=== PATIENT | female | born 1950 | race Caucasian/White ===

== ENCOUNTER 2022-03-06 14:14 | Emergency (ER) | payer OTHER, MEDICARE ==
[~2022-03-06] VITALS: Ht 160 cm; Wt 57.0 kg
--- NOTE | 2022-03-06 14:14 | NUR ---
Koko Zuñiga's phone number [phone]
--- NOTE | 2022-03-06 14:15 | NUR ---
Pt's son: Yogesh Ayon [phone] )
--- NOTE | 2022-03-06 14:15 | NUR ---
Pt's granddaughter: Daphney Laneng [phone]
[2022-03-06] MEDS ORDERED: ASPI81TA52 PO (14:55)
[2022-03-06] MEDS ORDERED: AMLO-139 PO (14:55)
[2022-03-06] MEDS ORDERED: ATOR80TA PO (14:55)
[2022-03-06] MEDS ORDERED: OLAN5TAB3 PO (14:55)
[2022-03-06 14:58] LABS: BASOPHILS # (AUTO) 0.1 X10'3 (0-0.2); BASOPHILS % (AUTO) 0.6 % (0-1); EOSINOPHILS # (AUTO) 0.1 X10'3 (0-0.9); EOSINOPHILS % (AUTO) 0.4 % (0-6); LYMPHOCYTES % (AUTO) 12.9 % (21-51); MEAN CORPUSCULAR HEMOGLOBIN 27.7 PG (27.0-31.0); MEAN CORPUSCULAR HGB CONC 33.4 g/dL (33.0-36.5); MEAN CORPUSCULAR VOLUME 82.8 FL (78-98); MEAN PLATELET VOLUME 7.9 FL (7.4-10.4); MONOCYTES # (AUTO) 1.4 X10'3 (0-0.9); NEUTROPHILS % (AUTO) 77.1 % (42-75); PLATELET COUNT 471 X10'3 (140-440); RED BLOOD COUNT 4.71 X10'6 (4.20-5.60); RED CELL DISTRIBUTION WIDTH 14.6 % (11.5-14.5); WHITE BLOOD COUNT 15.6 X10'3 (4.5-11.0)
[2022-03-06 15:14] LABS: ALANINE AMINOTRANSFERASE 20 U/L (12-78); ALBUMIN 3.8 G/DL (3.4-5.0); ALBUMIN/GLOBULIN RATIO 0.9 (1.1-1.5); ALKALINE PHOSPHATASE 106 IU/L (46-116); ANION GAP 15 (8-16); ASPARTATE AMINO TRANSFERASE 23 U/L (10-37); BILIRUBIN,TOTAL 0.7 MG/DL (0.1-1.0); BLOOD UREA NITROGEN 20 MG/DL (7-18); BUN/CREATININE RATIO 27.8 (6.6-38.0); CALCIUM 9.2 MG/DL (8.5-10.1); CHLORIDE 103 MMOL/L (99-107); CREATININE 0.72 MG/DL (0.40-0.90); GLUCOSE 156 MG/DL (70-104); POTASSIUM 3.5 MMOL/L (3.5-5.1); SODIUM 140 MMOL/L (135-145); TOTAL CARBON DIOXIDE 22.2 MMOL/L (24-32); eGFR 79 ML/MIN
[2022-03-06 15:23] LABS: ETHANOL < 0.010 GM/DL (0.0-0.010)
[2022-03-06] MEDS ORDERED: OLANZapine **IM** 10 mg inj. IM ONE (15:25)
[2022-03-06] MEDS ORDERED: diphenhydrAMINE 50 mg/ml inj IM ONE (15:25)
[2022-03-06] MEDS ORDERED: LORazepam 2 mg/ml vial IM ONE ×2 (15:25→16:00)
--- NOTE | 2022-03-06 15:49 | NUR ---
no records avail for [facility], no records avail at all on [facility].
--- NOTE | 2022-03-06 16:08 | NUR ---
Pt has made multiple attempts to leave her room and flee the department. She is combative and confused. Rambles about being an [place].
--- NOTE | 2022-03-06 16:30 | NUR ---
Pt is resting.
--- NOTE | 2022-03-06 17:02 | NUR ---
To CT via gurney. Transported by CT staff and shipyard laborer.
[2022-03-06 18:38] LABS: URINE AMPHETAMINE SCREEN NEGATIVE (Neg); URINE BARBITUATE SCREEN NEGATIVE (Neg); URINE BENZODIAZEPINES SCREEN NEGATIVE (Neg); URINE CANNABINOID SCREEN NEGATIVE (Neg); URINE COCAINE SCREEN NEGATIVE (Neg); URINE METHADONE SCREEN NEGATIVE (Neg); URINE OPIATE SCREEN NEGATIVE (Neg); URINE PHENCYCLIDINE SCREEN NEGATIVE (Neg)
[2022-03-06 18:39] LABS: CLARITY,URINE CLEAR (Clear); COLOR,URINE YELLOW (Yellow); GLUCOSE, URINE NEGATIVE (Neg); KETONES,URINE 15 mg/dl (Neg); LEUKOCYTE ESTERASE ,URINE NEGATIVE (Neg); NITRITES, URINE NEGATIVE (Neg); OCCULT BLOOD,URINE NEGATIVE (Neg); PROTEIN,URINE TRACE mg/dl (Neg); UROBILINOGEN,URINE 0.2 E.U/dL (0.2-1.0)
[2022-03-06 18:47] LABS: UA COLLECTION TYPE STRAIGHT CATH
[2022-03-06 19:02] LABS: WBC,URINE 0-4 /HPF (0-4)
[2022-03-06 19:03] LABS: BACTERIA,URINE FEW /HPF (Neg); MUCUS STRANDS FEW /LPF (Neg); SQUAMOUS EPITHELIAL CELL,UR FEW /LPF (FEW)
--- NOTE | 2022-03-06 20:35 | NUR ---
Packet sent to [facility]
--- NOTE | 2022-03-06 21:38 | NUR ---
The patient moved to bed 20 in the ER overflow via [facility]. She appears sedated from medications given earlier.
--- NOTE | 2022-03-06 23:21 | NUR ---
The patient appears to be sleeping. respirations even and unlabored
--- NOTE | 2022-03-07 01:41 | NUR ---
The patient appears to be sleeping. Respirations even and unlabored
--- NOTE | 2022-03-07 03:35 | NUR ---
The patient appears to be sleeping. She is laying on her back. Respirations even and unlabored
--- NOTE | 2022-03-07 05:33 | NUR ---
The patient has appeared to have slept the entire night
--- NOTE | 2022-03-07 06:28 | NUR ---
Patient at nurses station and talking and attempting to give RN phone numbers when patient lived in [place] and her father was . Patient does know the correct year and month. Patient has HX of a CVA 3 weeks ago and is altered. Patient placed on a 5150 by ethics officer. Patient to be evaluated today by [facility]. No HX of psych. Continue to monitor.
[2022-03-07] MEDS ORDERED: AMLO-708 PO (06:37)
--- NOTE | 2022-03-07 08:00 | NUR ---
Patient eating breakfast. 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 Nolan slice, orange juice and mandarin oranges on patient's plate. Patient has ciliac disease. RN updated Allergy List and removed the food she could not eat. Continue to monitor.
--- NOTE | 2022-03-07 08:20 | NUR ---
RN spoke with son Yogesh. RN asked patient if [facility] had gotten the records from [place] about her stroke. RN advised son that we are aware she had a stroke. RN asked if patient had a psychiatric diagnosis. Son states the patient was diagnosed with delirium after the stroke. RN asked son if patient ever had a psychiatric diagnosis before her stroke. Son stated no. RN advised son that [facility] will evaluate patient and decide if patient meets criteria for a mental health hold and she would be contacting him for more information.
[2022-03-07] MEDS: aspirin 81mg, enteric-coated 1 TAB TABLET.DR PO SCH (08:38)
[2022-03-07] MEDS: amLODIPine 5mg tablet PO SCH (08:38)
--- NOTE | 2022-03-07 09:16 | NUR ---
GRETCHEN, Ruchi, Evaluating patient.
--- NOTE | 2022-03-07 11:04 | NUR ---
Patient finally no longer talking. Patient has been almost non stop talking for about 4.5 hours.
--- NOTE | 2022-03-07 12:36 | NUR ---
Patient only took a couple of bites of her food and wouldn't eat anymore. Patient is drinking water as RN refilled her pitcher. Continue to monitor.
--- NOTE | 2022-03-07 13:14 | NUR ---
Paptient sleeping sitting in the bed. No distress observed. Continue to monitor.
--- NOTE | 2022-03-07 15:10 | NUR ---
Tele Neuro Consult By Harsha Wong. Dr Ji evaluated patient with RN at side. Patient got upset and denied ever having a stroke. Patient attempted to hit RN with the papers she had with her. Dr Ji recommended placing patient back on the psych meds she was on. Also stated that the frustration from having aphasia could cause these behaviors. RN reported conversation to Dr Tomlinson. Dr. Tomlinson requested a psych consult. RN will call [facility] to initiate.
--- NOTE | 2022-03-07 15:20 | NUR ---
RN spoke to Peyman frog catcher of [facility]. Peyman stated he would page GRECIA Triplett for the eval.
--- NOTE | 2022-03-07 16:51 | NUR ---
RN spoke to Marilee from Aeronautical [employer] Officer for Discharge Planning for patient in bed 20. Marilee advised RN to have GRECIA Hays for a consult. Dr. Tomlinson said he came and saw patient and now wants discharge planning to see patient. RN paged discharge planning at 1635 and left Patsy, social worker clinical a message. No response and possibly gone for the day. Will advise Dr. Tomlinson.
[2022-03-07] MEDS ORDERED: OLANZapine 2.5MG tablet PO ONE (17:28)
--- NOTE | 2022-03-07 18:57 | NUR ---
The patient is resting on her bed. She has been cooperative. She is aware that she will be discharged in the am
[2022-03-07] MEDS: atorvastatin 20mg tablet PO SCH (20:05)
[2022-03-07] MEDS: OLANZAPINE 5 MG TABLET PO SCH (20:05)
--- NOTE | 2022-03-07 20:32 | NUR ---
The patient appears to be sleeping
--- NOTE | 2022-03-07 23:13 | NUR ---
The patient appears to be sleeping. Respirations are even and unlabored
--- NOTE | 2022-03-08 | NUR ---
The patient appearsa to be sleeping
--- NOTE | 2022-03-08 01:49 | NUR ---
The patient appears to be sleeping
--- NOTE | 2022-03-08 03:11 | NUR ---
The patient appears to be sleeping
--- NOTE | 2022-03-08 05:33 | NUR ---
THe patient appeared to have slept well during the night
--- NOTE | 2022-03-08 07:00 | NUR ---
Received Pt in bed resting w/o distress. Pt came to nurses station and spoke with this nurse and other staff in an entitled demeaning manner. Pt intrusive in conversations others are having. Pt irritable yet responds to limits.
[2022-03-08] MEDS: aspirin 81mg, enteric-coated 1 TAB TABLET.DR PO SCH (08:05)
[2022-03-08] MEDS: amLODIPine 5mg tablet PO SCH (08:07)
--- NOTE | 2022-03-08 09:15 | NUR ---
Pt took AM meds w/o issue and ate breakfast well. Pt demanding at times about having staff contact people for her.
--- NOTE | 2022-03-08 11:00 | NUR ---
Conversation had with Pt's son via phone. Son does not feel safe bringing her home and stated he will not be picking her up.Info relayed to Marilee FARMER, who stated she will be working with Son on DC plan.
--- NOTE | 2022-03-08 13:00 | NUR ---
Pt ate lunch well and did word puzzles in bed. Pt remains intrusive verbally.
--- NOTE | 2022-03-08 14:00 | NUR ---
Plan via Patsy FARMER, has been arranged that son will take Pt back to his home with 30 day supply of current meds and Appt at [facility].
--- NOTE | 2022-03-08 18:30 | NUR ---
Pt pink, alert, talking with sitter. Pt ambulating around room s complication. Will continue to monitor pt. for acute changes/and needs.
--- NOTE | 2022-03-08 19:07 | NUR ---
Pt pink, alert, no acute/resp distress. Will continue to monitor pt for acute changes and further needs.
[2022-03-08] MEDS: OLANZAPINE 5 MG TABLET PO SCH (20:41)
[2022-03-08] MEDS: atorvastatin 20mg tablet PO SCH (20:42)
--- NOTE | 2022-03-08 20:43 | NUR ---
Pt refuses meds. States she is in a cardiology study at [facility]. Pt pink, alert, no acute/resp distress. Sitter sitting outside door. Pt wants glass door closed. Pt speech is manic like, pressured speech.
--- NOTE | 2022-03-08 21:28 | NUR ---
Pt pink, alert, supine on bed. Pt pink, alert, no acute/resp distress. Sitter at bedside.
--- NOTE | 2022-03-08 23:09 | NUR ---
Pt supine in bed, pink, alert, no acute/resp distress. Sitter at bedside. Bed in lowest position, wheels locked. Will continue to monitor for acute changes and needs.
[2022-03-09] MEDS ORDERED: quetiapine 100mg tablet PO ONE (00:30)
--- NOTE | 2022-03-09 00:41 | NUR ---
Pt still refuses all po medications. ERP aware.
[2022-03-09] MEDS ORDERED: LORazepam 2 mg/ml vial IM ONE (00:50)
[2022-03-09] MEDS ORDERED: OLANZapine **IM** 10 mg inj. IM ONE (00:50)
--- NOTE | 2022-03-09 01:10 | NUR ---
Pt medicated as ordered with IM meds right ventrogluteal site. No s/s hematoma, adverse reaction. Security at bedside to assist with stabilization of pt for IM injection. Pt shirin. well. Pt mostly cooperative.
--- NOTE | 2022-03-09 02:26 | NUR ---
PT sleeping supine, pink, no acute/resp distress. Will continue to monitor pt for acute changes and further needs. Pt laying supine, changes position as needed.
--- NOTE | 2022-03-09 03:49 | NUR ---
Pt pink, sleeping, supine in bed. Wheels locked, bed in lowest position. Will continue to monitor for acute changes and further needs.
--- NOTE | 2022-03-09 04:50 | NUR ---
PT sleeping supine, pink, no acute/resp distress. Will continue to monitor pt for acute changes and further needs.
--- NOTE | 2022-03-09 05:31 | NUR ---
Pt pink, alert, supine in bed. Wheels locked, bed in lowest position. Will continue to monitor for acute changes and further needs.
--- NOTE | 2022-03-09 05:58 | NUR ---
handoff report to dayshift RN
--- NOTE | 2022-03-09 06:55 | NUR ---
Reprt obtained from ER nurse. Pt brought back to psych overflow, pt awake at this time, walking the unit. Pt is disoriented and not making sense but able to make her needs known.
--- NOTE | 2022-03-09 07:49 | NUR ---
Pt. in bed resting with eyes closed, noted rise and fall of chest.
[2022-03-09] MEDS: amLODIPine 5mg tablet PO SCH (08:06)
[2022-03-09] MEDS: aspirin 81mg, enteric-coated 1 TAB TABLET.DR PO SCH (08:06)
--- NOTE | 2022-03-09 08:56 | NUR ---
Pt. attempted to call son, no answer. Pt. is lying in bed on her back with eyes closed. Rise and fall of chest visible.
--- NOTE | 2022-03-09 09:00 | NUR ---
Per [facility] Crisis Evaluation notes Pt. does NOT meet 5150 requirment and her symptoms are most liekly attributed from a recent stroke.
--- NOTE | 2022-03-09 09:48 | NUR ---
Pt resting in bed with her head under the blankets, noted rise and fall of chest.
--- NOTE | 2022-03-09 10:36 | NUR ---
patient asleep at this time.
--- NOTE | 2022-03-09 11:36 | NUR ---
Pt. up walking the facility, brushing her hair.
--- NOTE | 2022-03-09 11:56 | NUR ---
Pt. talking on the phone with her son now.
--- NOTE | 2022-03-09 12:50 | NUR ---
Pt. on the phone with son for approx 25 min, conversation sounded healthy. Pt. states she is going to nap now.
--- NOTE | 2022-03-09 14:04 | NUR ---
patient asleep on right side,respirations regular.
--- NOTE | 2022-03-09 15:03 | NUR ---
Pt asleep on right side, rise and fall of chest noted.
--- NOTE | 2022-03-09 16:00 | NUR ---
Pt. awake and eating snacks in bed. No distress noted.
--- NOTE | 2022-03-09 16:56 | NUR ---
Pt. awake sitting in her bed brushing her hair, no distress noted.
--- NOTE | 2022-03-09 17:50 | NUR ---
Pt. sleeping on back, noted breath sounds. No signs of distress.
--- NOTE | 2022-03-09 18:16 | NUR ---
Report given to DESIRAE Ashby. Pt sleeping on back, breath sounds heard.
--- NOTE | 2022-03-09 19:00 | NUR ---
Pt received sleeping in bed. Pt awoke to eat her dinner.
[2022-03-09] MEDS: OLANZAPINE 5 MG TABLET PO SCH (20:01)
[2022-03-09] MEDS: atorvastatin 20mg tablet PO SCH (20:01)
--- NOTE | 2022-03-09 21:00 | NUR ---
Pt cooperative with pm assessment and took hs meds. Pt currently sleeping in no distress.
--- NOTE | 2022-03-09 23:00 | NUR ---
Pt remains asleep in no apparent distress.
--- NOTE | 2022-03-10 01:00 | NUR ---
Pt continues to sleep without distress.
--- NOTE | 2022-03-10 03:00 | NUR ---
Pt sleeping without distress.
--- NOTE | 2022-03-10 05:00 | NUR ---
Pt awoke at 0415 and has been lying silently in bed with no complaints.
--- NOTE | 2022-03-10 06:40 | NUR ---
Patient sitting up in bed with light on. No distress observed. Continue to monitor.
[2022-03-10] MEDS: aspirin 81mg, enteric-coated 1 TAB TABLET.DR PO SCH (07:59)
[2022-03-10] MEDS: amLODIPine 5mg tablet PO SCH (08:00)
--- NOTE | 2022-03-10 08:21 | NUR ---
Patient eating breakfast. No distress observed. Continue to monitor.
--- NOTE | 2022-03-10 08:50 | NUR ---
Patient chatting with [employer] about her travels. No distress observed. Continue to monitor.
--- NOTE | 2022-03-10 10:31 | NUR ---
Patient on the phone with her son. No distress observed. Continue to monitor.
--- NOTE | 2022-03-10 12:17 | NUR ---
Patient eating lunch. No distress observed. Continue to monitor.
--- NOTE | 2022-03-10 14:05 | NUR ---
Pt has been standing at her bedside fixing the blankets and refixing the blankets for the past 20 minutes. She has called her son twice in the past 2 hours. She is calm and cooperative with staff.
--- NOTE | 2022-03-10 16:06 | NUR ---
Pt spoke to her son on the phone. She is now sitting on her bed looking around. She denies complaints and appears to be comfortable. Will continue to monitor.
--- NOTE | 2022-03-10 17:41 | NUR ---
Pt sitting on her bed waiting for dinner. She denies complaints at this time.
--- NOTE | 2022-03-10 19:09 | NUR ---
The patient has been calm, pleasant and cooperative. She is fairly oriented. She was circumstantial when discussing why she was here. She stated that it was her understanding that tomorrow she would be discharged and that she is not on any kind of hold. She denies pain.
[2022-03-10] MEDS: OLANZAPINE 5 MG TABLET PO SCH (19:55)
[2022-03-10] MEDS: atorvastatin 20mg tablet PO SCH (19:56)
--- NOTE | 2022-03-10 21:05 | NUR ---
The patient appears to be sleeping
--- NOTE | 2022-03-10 23:01 | NUR ---
The patient appears to be sleeping at this time. was up once briefly to use the bathroom but is now back asleep
--- NOTE | 2022-03-11 00:01 | NUR ---
The patient up to use the bathroom
--- NOTE | 2022-03-11 01:02 | NUR ---
The patient appears to be sleeping
--- NOTE | 2022-03-11 01:58 | NUR ---
The patient appears to be sleeping
--- NOTE | 2022-03-11 03:07 | NUR ---
The patient appears to be sleeping
--- NOTE | 2022-03-11 04:09 | NUR ---
The patient appears to be sleeping
--- NOTE | 2022-03-11 05:35 | NUR ---
The patient appears to be sleeping
[2022-03-11 06:00] VITALS: BP_DIAS 84
--- NOTE | 2022-03-11 06:22 | NUR ---
Patient awake and sitting up in bed. Patient believes she is leaving today and has removed all her blankets and top sheets. Patient is calm and in no distress and asked RN for a hot tea. Continue to monitor.
--- NOTE | 2022-03-11 08:10 | NUR ---
Patient eating breakfast. No distress observed. Continue to monitor.
[2022-03-11] MEDS: aspirin 81mg, enteric-coated 1 TAB TABLET.DR PO SCH (08:42)
[2022-03-11 08:43] VITALS: BP_SYST 153
[2022-03-11] MEDS: amLODIPine 5mg tablet PO SCH (08:43)
--- NOTE | 2022-03-11 09:04 | NUR ---
Patient getting agitated, trying to leave. Adamantly states she is not on a hold thus we cannot keep her here. Security called; patient immediately went back to her bed.
[2022-03-11] MEDS ORDERED: haloperidol 1mg tablet PO SCH (09:55)
--- NOTE | 2022-03-11 10:29 | NUR ---
Patient has been talking non-stop to staff and on the phone. Dr Mendez evaluated patient and gave order for 2 mg Haldol. Continue to monitor.
--- NOTE | 2022-03-11 10:51 | NUR ---
Patient has been quiet so RN will Hold Haldal, PO until patient needs it. Continue to monitor.
--- NOTE | 2022-03-11 12:40 | NUR ---
pt sleeping quietly in her bed, eating lunch with good appetite.
--- NOTE | 2022-03-11 14:36 | NUR ---
Patient sleeping. No distress observed. Continue to monitor.
--- NOTE | 2022-03-11 16:46 | NUR ---
RN washed patient's hair with a shower cap. Patient tolerated well. Patient getting dressed because son states to roll picker patient after 5. Continue to monitor.
== END 2022-03-11 18:41 | disposition home or self-care (01) ==
LOC: ER 14:14
DX: F23 Brief psychotic disorder (principal); Z20.822 Contact with and (suspected) exposure to COVID-19; R45.1 Restlessness and agitation; Z86.73 Personal history of transient ischemic attack (TIA), and cerebral infarction without residual deficits; Z79.82 Long term (current) use of aspirin; Z79.899 Other long term (current) drug therapy
CPT/HCPCS: 36415; 70450; 71045; 80053; 80305; 80320; 81001; 84443; 84484; 85025; 87635; 93005; 96372; 99285; C9803; J1200; J2060; J3490

== ENCOUNTER 2022-03-13 22:42 | Inpatient (IN) | payer MEDICARE, OTHER ==
[~2022-03-13] VITALS: Ht 157.5 cm; Wt 56.8 kg
[~2022-03-13 22:42] MED LIST: AMLO-708 PO; ASPI81TA52 PO; ATOR80TA PO; OLAN5TAB3 PO
--- NOTE | 2022-03-13 22:42 | NUR ---
Pt presented to ED with county deputy and granddaughter. Pt is having erratic behavior and using loose associations. Reported that pt was normal earlier in the day. Pt is being very talkative and hyperactive. Some what combative, but can be redirected. Pt very repeditive. Will not take oral Ativan that was given, spit out.
[2022-03-13] MEDS ORDERED: LORazepam 1 MG tablet PO ONE (23:05)
--- NOTE | 2022-03-13 23:11 | NUR ---
PT SPIT HER ORAL ATIVAN DOSE BACK INTO THE WATER CUP AFTER PUTTING IT IN HER MOUTH, DOSE WASTED
[2022-03-13] MEDS ORDERED: LORazepam 2 mg/ml vial IM ONE (23:20)
[2022-03-13 23:25] LABS: BASOPHILS % (AUTO) 0.4 % (0-1); EOSINOPHILS # (AUTO) 0.2 X10'3 (0-0.9); EOSINOPHILS % (AUTO) 1.4 % (0-6); HEMATOCRIT 38.3 % (35.0-45.0); HEMOGLOBIN 12.3 g/dl (12.0-16.0); MEAN CORPUSCULAR HEMOGLOBIN 26.7 PG (27.0-31.0); MEAN CORPUSCULAR HGB CONC 32.2 g/dL (33.0-36.5); MEAN CORPUSCULAR VOLUME 82.8 FL (78-98); MEAN PLATELET VOLUME 7.7 FL (7.4-10.4); MONOCYTES # (AUTO) 1.3 X10'3 (0-0.9); MONOCYTES % (AUTO) 10.7 % (2-12); NEUTROPHILS # (AUTO) 7.8 X10'3 (1.8-7.7); NEUTROPHILS % (AUTO) 63.5 % (42-75); PLATELET COUNT 538 X10'3 (140-440); RED BLOOD COUNT 4.62 X10'6 (4.20-5.60); RED CELL DISTRIBUTION WIDTH 14.5 % (11.5-14.5); WHITE BLOOD COUNT 12.3 X10'3 (4.5-11.0)
[2022-03-13 23:44] LABS: ALANINE AMINOTRANSFERASE 16 U/L (12-78); ALBUMIN 3.5 G/DL (3.4-5.0); ALBUMIN/GLOBULIN RATIO 0.7 (1.1-1.5); ALKALINE PHOSPHATASE 105 IU/L (46-116); ANION GAP 14 (8-16); ASPARTATE AMINO TRANSFERASE 24 U/L (10-37); BILIRUBIN,TOTAL 0.7 MG/DL (0.1-1.0); BLOOD UREA NITROGEN 22 MG/DL (7-18); BUN/CREATININE RATIO 23.4 (6.6-38.0); CALCIUM 9.5 MG/DL (8.5-10.1); CHLORIDE 104 MMOL/L (99-107); CREATININE 0.94 MG/DL (0.40-0.90); ETHANOL < 0.010 GM/DL (0.0-0.010); GLUCOSE 138 MG/DL (70-104); SODIUM 142 MMOL/L (135-145); TOTAL CARBON DIOXIDE 24.4 MMOL/L (24-32); TOTAL PROTEIN 8.3 G/DL (6.4-8.2); eGFR 58 ML/MIN
--- NOTE | 2022-03-14 00:24 | NUR ---
Pt given Ativan IM, still uncooperative
--- NOTE | 2022-03-14 01:20 | NUR ---
EKG and U/A on hold related to agitation. Dr Schuster aware.
[2022-03-14] MEDS ORDERED: aspirin 325mg tablet PO ONE (01:50)
--- NOTE | 2022-03-14 05:21 | NUR ---
Pt in bed resting quitely. Awaiting MRI this am.
--- NOTE | 2022-03-14 08:56 | NUR ---
MRI screening form completed, info obtained from pt's emergency contact Yogesh (son) by phone.
--- NOTE | 2022-03-14 10:09 | NUR ---
Pt sleeping comfortably, no needs at this time.
--- NOTE | 2022-03-14 12:30 | NUR ---
Pt sitting in chair by door of her room. Disoriented, making incoherent conversation. Refuses to return to bed to put VS equipment back on. States she's "awake now" and doesn't want to go back to bed right now.
[2022-03-14 13:01] LABS: CLARITY,URINE CLOUDY (Clear); COLOR,URINE YELLOW (Yellow); GLUCOSE, URINE NEGATIVE (Neg); KETONES,URINE 15 mg/dl (Neg); LEUKOCYTE ESTERASE ,URINE NEGATIVE (Neg); NITRITES, URINE NEGATIVE (Neg); OCCULT BLOOD,URINE TRACE-INTACT (Neg); PROTEIN,URINE TRACE mg/dl (Neg); UROBILINOGEN,URINE 0.2 E.U/dL (0.2-1.0)
[2022-03-14 13:12] LABS: UA COLLECTION TYPE VOIDED; URINE AMPHETAMINE SCREEN NEGATIVE (Neg); URINE BARBITUATE SCREEN NEGATIVE (Neg); URINE BENZODIAZEPINES SCREEN NEGATIVE (Neg); URINE CANNABINOID SCREEN NEGATIVE (Neg); URINE COCAINE SCREEN NEGATIVE (Neg); URINE METHADONE SCREEN NEGATIVE (Neg); URINE OPIATE SCREEN NEGATIVE (Neg); URINE PHENCYCLIDINE SCREEN NEGATIVE (Neg)
[2022-03-14 13:13] LABS: MUCUS STRANDS MANY /LPF (Neg); SQUAMOUS EPITHELIAL CELL,UR MANY /LPF (FEW)
[2022-03-14 13:14] LABS: BACTERIA,URINE 1+ /HPF (Neg); RBC,URINE 0-2 /HPF (0-2)
--- NOTE | 2022-03-14 13:17 | NUR ---
Pt refusing MRI. Making bizarre comments regarding a "dog question from pet stop", and asking if staff has any respect for the "old doctors". aware.
--- NOTE | 2022-03-14 14:00 | NUR ---
Pt standing by door of room, still disoriented.
[2022-03-14] MEDS ORDERED: mag hydrox/Alum hydrox/simeth 30ml oral suspension PO PRN (14:15)
[2022-03-14] MEDS ORDERED: ondansetron/PF 4mg/2ml inj IV PRN (14:15)
[2022-03-14] MEDS ORDERED: morphine 2 MG/ML inj. syringe IV PRN ×2 (14:15)
[2022-03-14] MEDS ORDERED: magnesium hydroxide 30ml (MOM) UD suspension PO PRN (14:15)
[2022-03-14] MEDS ORDERED: acetaminophen 325mg tablet PO PRN (14:15)
[2022-03-14 15:17] LABS: HEMOGLOBIN A1C 5.9 % (4.5-6.2)
--- NOTE | 2022-03-14 16:50 | NUR ---
Pt refusing to lie still for Echo, states she can lie still "for hours" but continues to fidget and babble about unrelated topics.
--- NOTE | 2022-03-14 16:54 | NUR ---
MD notified about pt refusing exams, at bedside to assess pt.
--- NOTE | 2022-03-14 16:56 | NUR ---
Discussed pt's case and plan with Dr. New, received orders for 0.5 mg lorazepam IV q8h.
[2022-03-14] MEDS ORDERED: LORazepam 2 mg/ml vial IV PRN (17:00)
--- NOTE | 2022-03-14 18:49 | NUR ---
Pt PIV site c/d/i. Pt christopher gomez. Bed in lowest position, wheels locked, rail 2/2 up. Will continue to monitor pt for acute changes and needs. Addendum: 03/14/22 at 2333 by [email or web address] Pt jason alert. Bed in lowest position, wheels locked, rail 2/2 up. Will continue to monitor pt for acute changes and needs.
--- NOTE | 2022-03-14 19:49 | NUR ---
Pt pink, alert. Bed in lowest position, wheels locked, rail 2/2 up. Will continue to monitor pt for acute changes and needs.
[2022-03-14] MEDS: docusate sod 100mg capsule PO SCH (20:00)
--- NOTE | 2022-03-14 20:40 | NUR ---
Pt pink, alert. Bed in lowest position, wheels locked, rail 2/2 up. Will continue to monitor pt for acute changes and needs.
[2022-03-14] MEDS: atorvastatin 20mg tablet PO SCH (21:00)
[2022-03-14] MEDS: OLANZAPINE 5 MG TABLET PO SCH (21:00)
--- NOTE | 2022-03-14 21:40 | NUR ---
Pt pink, alert. Bed in lowest position, wheels locked, rail 2/2 up. Will continue to monitor pt for acute changes and needs.
--- NOTE | 2022-03-14 22:50 | NUR ---
Pt PIV site c/d/i. Pt pink, alert. Bed in lowest position, wheels locked, rail 2/2 up. Will continue to monitor pt for acute changes and needs.
--- NOTE | 2022-03-14 23:33 | NUR ---
Pt pink, alert. Bed in lowest position, wheels locked, rail 2/2 up. Will continue to monitor pt for acute changes and needs.
--- NOTE | 2022-03-14 23:34 | NUR ---
Pt PIV site c/d/i. Pt pink, alert. Bed in lowest position, wheels locked, rail 2/2 up. Will continue to monitor pt for acute changes and needs.
[2022-03-15] MEDS ORDERED: OLAN5TAB75 PO (00:04)
[2022-03-15] MEDS ORDERED: AMLO10TA13 PO (00:04)
[2022-03-15] MEDS ORDERED: ATOR-2 PO (00:05)
[2022-03-15] MEDS ORDERED: ASPI-1397 PO (00:05)
--- NOTE | 2022-03-15 00:40 | NUR ---
Pt pink, alert. Bed in lowest position, wheels locked, rail 2/2 up. Will continue to monitor pt for acute changes and needs.
--- NOTE | 2022-03-15 01:32 | NUR ---
Pt PIV site c/d/i. Pt pink, alert. Bed in lowest position, wheels locked, rail 2/2 up. Will continue to monitor pt for acute changes and needs.
[2022-03-15 01:36] LABS: BASOPHILS # (AUTO) 0.1 X10'3 (0-0.2); BASOPHILS % (AUTO) 1.2 % (0-1); EOSINOPHILS # (AUTO) 0.3 X10'3 (0-0.9); EOSINOPHILS % (AUTO) 4.1 % (0-6); HEMATOCRIT 34.7 % (35.0-45.0); HEMOGLOBIN 11.5 g/dl (12.0-16.0); MEAN CORPUSCULAR HEMOGLOBIN 27.6 PG (27.0-31.0); MEAN CORPUSCULAR HGB CONC 33.2 g/dL (33.0-36.5); MEAN CORPUSCULAR VOLUME 83.1 FL (78-98); MEAN PLATELET VOLUME 7.8 FL (7.4-10.4); MONOCYTES % (AUTO) 12.2 % (2-12); NEUTROPHILS # (AUTO) 4.8 X10'3 (1.8-7.7); NEUTROPHILS % (AUTO) 58.5 % (42-75); PLATELET COUNT 470 X10'3 (140-440); RED BLOOD COUNT 4.18 X10'6 (4.20-5.60); RED CELL DISTRIBUTION WIDTH 14.1 % (11.5-14.5); WHITE BLOOD COUNT 8.2 X10'3 (4.5-11.0)
[2022-03-15 01:44] LABS: ALBUMIN 2.7 G/DL (3.4-5.0); ANION GAP 6 (8-16); BLOOD UREA NITROGEN 28 MG/DL (7-18); BUN/CREATININE RATIO 34.6 (6.6-38.0); CALCIUM 8.6 MG/DL (8.5-10.1); CHLORIDE 108 MMOL/L (99-107); CHOL/HDL RATIO 3.4 (0.00-4.99); CHOLESTEROL 132 MG/DL (0-200); CREATININE 0.81 MG/DL (0.40-0.90); GLUCOSE 100 MG/DL (70-104); HDL CHOLESTEROL 39 MG/DL (35-60); LDL CHOLESTEROL 82 MG/DL (50-100); POTASSIUM 3.5 MMOL/L (3.5-5.1); SODIUM 141 MMOL/L (135-145); TOTAL CARBON DIOXIDE 27.1 MMOL/L (24-32); TRIGLYCERIDES 76 MG/DL (20-135); eGFR 69 ML/MIN
--- NOTE | 2022-03-15 02:08 | NUR ---
Pt pink, alert. Bed in lowest position, wheels locked, rail 2/2 up. Will continue to monitor pt for acute changes and needs. Pt laying supine, able to reposition self prn.
--- NOTE | 2022-03-15 05:41 | NUR ---
Pt pink, alert. Bed in lowest position, wheels locked, rail 2/2 up. Will continue to monitor pt for acute changes and needs. Pt laying supine, able to reposition self prn. Handoff report to Dayshift RN
[2022-03-15] MEDS: enoxaparin 40mg/0.4ml syringe SUBCUT SCH (08:00)
[2022-03-15] MEDS: docusate sod 100mg capsule PO SCH (08:00)
[2022-03-15] MEDS: amLODIPine 5mg tablet PO SCH (08:34)
[2022-03-15] MEDS: aspirin 325mg tablet, delayed-release (Ecotrin) PO SCH (08:34)
[2022-03-15 10:00] VITALS: BP 164/64
[2022-03-15] MEDS: aspirin 81mg, enteric-coated 1 TAB TABLET.DR PO SCH (11:09)
--- NOTE | 2022-03-15 11:43 | NUR ---
PAGER ID: [phone] MESSAGE: Ruma [id number] Leona Johnathan Room 4020B is refusing to allow placement of tele monitor.
[2022-03-15] MEDS: sulfamethoxazole/trimethoprim DS (800/160mg) tablet PO SCH (12:16)
[2022-03-15 14:00] VITALS: BP 115/74
--- NOTE | 2022-03-15 15:26 | NUR ---
PAGER ID: [phone] MESSAGE: Ruma [id number] Leona Mann Room 4020B refused her Septra (states she does not have a UTI) and her Ativan (states she is relaxed enough).
--- NOTE | 2022-03-15 18:24 | NUR ---
Problems reprioritized. Patient report given, questions answered & plan of care reviewed with DESIRAE Schaeffer.
[2022-03-15 19:00] VITALS: BP 141/70
[2022-03-15] MEDS: atorvastatin 20mg tablet PO SCH (21:00)
[2022-03-15] MEDS: OLANZAPINE 5 MG TABLET PO SCH (21:00)
[2022-03-15 22:00] VITALS: BP 122/60
[2022-03-16] VITALS (7 sets, daily range): BP systolic 136–164; BP diastolic 75–87
--- NOTE | 2022-03-16 01:21 | NUR ---
Tried multiple times to do a nihss on patient and she is resistive to care in my exam.
--- NOTE | 2022-03-16 01:23 | NUR ---
Patient unwilling to answer questions or perform tasks for me to complete the NIHSS. Addendum: 03/16/22 at 0123 by Jacquelin Cifuentes RN Amended: Links added.
--- NOTE | 2022-03-16 03:30 | NUR ---
Patient rambled on for over a half hour regarding her family and having grandiose thoughts in relation to different family members. She also expressed anger over a nephew's spouse that seemed to cause all of her problems per her.
--- NOTE | 2022-03-16 07:27 | NUR ---
Patient in room ORTHO 4020. I have received report from DESIRAE Schaeffer and had the opportunity to ask questions and assume patient care.
[2022-03-16] MEDS: aspirin 81mg, enteric-coated 1 TAB TABLET.DR PO SCH (08:00)
[2022-03-16] MEDS: enoxaparin 40mg/0.4ml syringe SUBCUT SCH (08:00)
[2022-03-16] MEDS: amLODIPine 5mg tablet PO SCH (08:00)
[2022-03-16] MEDS: docusate sod 100mg capsule PO SCH ×2 (08:00→20:00)
[2022-03-16] MEDS: sulfamethoxazole/trimethoprim DS (800/160mg) tablet PO SCH ×2 (08:00→20:00)
[2022-03-16] MEDS: aspirin 325mg tablet, delayed-release (Ecotrin) PO SCH (08:00)
--- NOTE | 2022-03-16 10:16 | NUR ---
Patient is refusing all medications. States "I have a 90 days supply of medication I came with from [place]. I don't need any medications". Patient is in general resisting/refusing care. She is sitting by the window waiting for her nephew to arrive. MD will consult with case management.
--- NOTE | 2022-03-16 18:53 | NUR ---
Problems reprioritized. Patient report given, questions answered & plan of care reviewed with DESIRAE Phan.
[2022-03-16] MEDS: OLANZAPINE 5 MG TABLET PO SCH (21:00)
[2022-03-16] MEDS: atorvastatin 20mg tablet PO SCH (21:00)
--- NOTE | 2022-03-16 21:22 | NUR ---
Patient came out to nurse's station saying she was going to bed and to not waker her up for vitals or anything tonight. Refusing any care at this time.
--- NOTE | 2022-03-17 05:49 | NUR ---
RESTED FOR SHORT PERIOD LAST NIGHT AND HAS BEEN OUT TO THE NURSES STATION NUMEROUS TIMES TO TELL US ABOUT HER NEPHEW WHO RUNS IN [place], AT ONE POINT HAD THE HOSPITAL HUMAN RESOURCE ASSISTANT TIED UP ON THE PHONE TELLING HER ABOUT HER NEPHEW, ETC. IS DISPLAYING FLIGHT OF IDEAS AND WILL NOT ACCEPT BEING RE-DIRECTED. AT THIS TIME, SHE IS ON THE PHONE WITH "HER SON", HAS BEEN CRYING AND TALKING NON-STOP FOR AN HOUR. REPORT GIVEN TO EARLY SHIFT RN
--- NOTE | 2022-03-17 06:15 | NUR ---
Patient in room ORTHO 4018. I have received report from Emilie and had the opportunity to ask questions and assume patient care.
[2022-03-17 08:00] VITALS: BP 169/85
[2022-03-17] MEDS: sulfamethoxazole/trimethoprim DS (800/160mg) tablet PO SCH ×2 (08:00→20:00)
[2022-03-17] MEDS: enoxaparin 40mg/0.4ml syringe SUBCUT SCH (08:00)
[2022-03-17] MEDS: aspirin 81mg, enteric-coated 1 TAB TABLET.DR PO SCH (08:00)
[2022-03-17] MEDS: amLODIPine 5mg tablet PO SCH (08:00)
[2022-03-17] MEDS: docusate sod 100mg capsule PO SCH ×2 (08:00→20:00)
[2022-03-17] MEDS: aspirin 325mg tablet, delayed-release (Ecotrin) PO SCH (08:00)
--- NOTE | 2022-03-17 10:13 | NUR ---
SENT A PAGE TO HOSPITALIST ASKING FOR SITTER AND FOR PT TO BE EVALUATED BY MENTAL HEALTH, PT IS WALKING AROUND NURSING STATION, STOPPING STAFF FROM DOING THEIR JOBS, PT IS HAVING NON-STOP, REPETITIVE CONVERSATIONS WITH ALL STAFF ABOUT THE PAST, PT SOMETIMES BECOMES UPSET AND YELLS AT STAFF, SOMETIMES PT BECOMES TEARFUL W/HER NON-STOP CONVERSATION, PT IS VERY DISTRACTING AND IS VERY CONFUSED, NO NEW ORDERS AT THIS TIME
--- NOTE | 2022-03-17 12:59 | NUR ---
Pt refused Addendum: 03/17/22 at 1259 by rTesa Still RN Amended: Links added.
--- NOTE | 2022-03-17 13:18 | NUR ---
hospitalist called back to let me know that he has spoken w/[facility] md and that they will reevaluate pt situation tomorrow
--- NOTE | 2022-03-17 18:24 | NUR ---
Problems reprioritized. Patient report given, questions answered & plan of care reviewed with
[2022-03-17] MEDS: OLANZAPINE 5 MG TABLET PO SCH (21:00)
[2022-03-17] MEDS: atorvastatin 20mg tablet PO SCH (21:00)
[2022-03-18 07:00] VITALS: BP 185/95
[2022-03-18] MEDS: aspirin 81mg, enteric-coated 1 TAB TABLET.DR PO SCH (08:00)
[2022-03-18] MEDS: sulfamethoxazole/trimethoprim DS (800/160mg) tablet PO SCH (08:00)
[2022-03-18] MEDS: amLODIPine 5mg tablet PO SCH (08:00)
[2022-03-18] MEDS: aspirin 325mg tablet, delayed-release (Ecotrin) PO SCH (08:00)
[2022-03-18] MEDS: docusate sod 100mg capsule PO SCH ×2 (08:00→20:00)
[2022-03-18] MEDS: enoxaparin 40mg/0.4ml syringe SUBCUT SCH (08:00)
--- NOTE | 2022-03-18 09:49 | NUR ---
Initial: Pt admitted w/ acute psychosis which has reportedly come on after a recent stroke per EMR. Pt has been noted to be confused, and refusing all meds and care. Currently on Heart Healthy diet w/ avg ~50% intake of meals meeting est nutrient needs at this time, though recommend liberalizing to Regular diet given lipid panel WNL. No BM documented, though pt is refusing meds. Will continue to monitor. Recs: 1. liberalize to Regular diet; lipids WNL 2. Bowel care per rx 3. Scaled wts this admit Addendum: 03/18/22 at [address] Amended: Links added.
[2022-03-18] MEDS ORDERED: OLANZapine **IM** 10 mg inj. IM ONE (10:00)
--- NOTE | 2022-03-18 15:13 | NUR ---
PAGER ID: [phone] MESSAGE: Ca [id number] Re; Johnathan [phone] please call re: patient has not voided today
[2022-03-18] MEDS ORDERED: OLANZapine **IM** 10 mg inj. IM PRN (15:20)
[2022-03-18] MEDS: LORazepam 2 mg/ml vial IM PRN ×2 (16:22→16:25)
--- NOTE | 2022-03-18 16:27 | NUR ---
Bladder scanned patient showed 356ml's in bladder. Straight cath patient per MD orders. Got 450ml's out.
--- NOTE | 2022-03-18 16:29 | NUR ---
Patient was given IM Ativan post evaluation by Tico with Mental [facility]
--- NOTE | 2022-03-18 18:15 | NUR ---
Problems reprioritized. Patient report given, questions answered & plan of care reviewed with Zeenat MERRILL.
--- NOTE | 2022-03-18 18:18 | NUR ---
Problems reprioritized. Patient report given, questions answered & plan of care reviewed with DESIRAE Epperson.
[2022-03-18] MEDS: atorvastatin 20mg tablet PO SCH (21:00)
--- NOTE | 2022-03-19 00:34 | NUR ---
bladder scan done 45ml.
--- NOTE | 2022-03-19 00:35 | NUR ---
report given to Lizbeth MERRILL,all questions answered,waiting for dc order.
--- NOTE | 2022-03-19 01:10 | NUR ---
pt agitated and combative,zyprexa 10 mg given im.0115 Dr. Reece here, pt aggressive and about to throw phone to Dr. [phone].[phone] Reece ok to give pt ativan 1 mg im,given and transferred pt per w/c to [facility] with sitter.
[2022-03-19] MEDS ORDERED: SULF1TAB45 PO (01:20)
[2022-03-19] MEDS: LORazepam 2 mg/ml vial IM PRN (01:32)
== END 2022-03-19 01:53 | DRG 65 ==
LOC: ER 22:43 → ED HOLD 03-14 14:21 → ORTHO 4S 03-15 09:35
PROVIDERS: ADMIT Internal Medicine; ATTEND Internal Medicine
DX: I63.9 Cerebral infarction, unspecified (principal); F23 Brief psychotic disorder; R47.01 Aphasia; E78.5 Hyperlipidemia, unspecified; R47.1 Dysarthria and anarthria; I10 Essential (primary) hypertension; Z66 Do not resuscitate; Z79.899 Other long term (current) drug therapy; Z86.73 Personal history of transient ischemic attack (TIA), and cerebral infarction without residual deficits; Z87.891 Personal history of nicotine dependence; Z88.8 Allergy status to other drugs, medicaments and biological substances
CPT/HCPCS: 36415; 70450; 71045; 80048; 80053; 80061; 80305; 80320; 81001; 82140; 83036; 83880; 84443; 85025; 85651; 87081; 92508; 92616; 93005; 93306; 97161; 97530; 99285; G0378; J2060; J3490

== ENCOUNTER 2022-11-07 12:34 | Inpatient (IN) | payer MEDICARE, MEDICAID ==
[~2022-11-07] VITALS: Ht 160 cm; Wt 53.1 kg
[~2022-11-07 12:34] MED LIST changes: -AMLO-708 PO; +ASPI-1071 PO; -ASPI81TA52 PO; +ATI1T PO; +ATOR40TA71 PO; -ATOR80TA PO; +NOR5T PO; +OLAN5TAB29 PO; -OLAN5TAB3 PO; +TRAZ-251 PO
[2022-11-07] MEDS ORDERED: OLANZapine **IM** 10 mg inj. IM ONE (12:55)
[2022-11-07] MEDS ORDERED: ATOR40TA PO (13:06)
[2022-11-07] MEDS ORDERED: ASPI-1265 PO (13:06)
[2022-11-07] MEDS ORDERED: AMLO-139 PO (13:06)
[2022-11-07 13:13] LABS: BASOPHILS # (AUTO) 0.1 X10'3 (0-0.2); BASOPHILS % (AUTO) 0.3 % (0-1); EOSINOPHILS % (AUTO) 0.1 % (0-6); HEMATOCRIT 42.3 % (35.0-45.0); HEMOGLOBIN 13.8 g/dl (12.0-16.0); LYMPHOCYTES # (AUTO) 2.5 X10'3 (1.1-4.8); LYMPHOCYTES % (AUTO) 14.9 % (21-51); MEAN CORPUSCULAR HEMOGLOBIN 27.5 PG (27.0-31.0); MEAN CORPUSCULAR HGB CONC 32.6 g/dL (33.0-36.5); MEAN CORPUSCULAR VOLUME 84.5 FL (78-98); MEAN PLATELET VOLUME 8.4 FL (7.4-10.4); MONOCYTES # (AUTO) 1.1 X10'3 (0-0.9); MONOCYTES % (AUTO) 6.3 % (2-12); NEUTROPHILS # (AUTO) 13.1 X10'3 (1.8-7.7); NEUTROPHILS % (AUTO) 78.4 % (42-75); PLATELET COUNT 458 X10'3 (140-440); RED BLOOD COUNT 5.01 X10'6 (4.20-5.60); RED CELL DISTRIBUTION WIDTH 14.3 % (11.5-14.5); WHITE BLOOD COUNT 16.7 X10'3 (4.5-11.0)
[2022-11-07] MEDS ORDERED: LORazepam 2 mg/ml vial IM ONE (13:15)
[2022-11-07 13:29] LABS: ALANINE AMINOTRANSFERASE 15 U/L (12-78); ALBUMIN 4.1 G/DL (3.4-5.0); ALKALINE PHOSPHATASE 118 IU/L (46-116); ANION GAP 17 (8-16); ASPARTATE AMINO TRANSFERASE 28 U/L (10-37); BILIRUBIN,TOTAL 1.4 MG/DL (0.1-1.0); BLOOD UREA NITROGEN 35 MG/DL (7-18); BUN/CREATININE RATIO 29.2 (6.6-38.0); CALCIUM 9.8 MG/DL (8.5-10.1); CHLORIDE 102 MMOL/L (99-107); ETHANOL < 0.010 GM/DL (0.0-0.010); GLUCOSE 135 MG/DL (70-104); POTASSIUM 3.7 MMOL/L (3.5-5.1); SODIUM 140 MMOL/L (135-145); TOTAL CARBON DIOXIDE 21.3 MMOL/L (24-32); TOTAL PROTEIN 8.4 G/DL (6.4-8.2); eGFR 44 ML/MIN
--- NOTE | 2022-11-07 19:58 | NUR ---
Poultry Husbandman agrees with Cheyenne Holloway, Cesar assessment.
[2022-11-07 20:03] LABS: URINE AMPHETAMINE SCREEN NEGATIVE (Neg); URINE BARBITUATE SCREEN NEGATIVE (Neg); URINE BENZODIAZEPINES SCREEN NEGATIVE (Neg); URINE CANNABINOID SCREEN NEGATIVE (Neg); URINE COCAINE SCREEN NEGATIVE (Neg); URINE METHADONE SCREEN NEGATIVE (Neg); URINE OPIATE SCREEN NEGATIVE (Neg); URINE PHENCYCLIDINE SCREEN NEGATIVE (Neg)
[2022-11-07 20:04] LABS: CLARITY,URINE SLIGHTLY CLOUDY (Clear); COLOR,URINE YELLOW (Yellow); GLUCOSE, URINE NEGATIVE (Neg); KETONES,URINE >=80 mg/dl (Neg); LEUKOCYTE ESTERASE ,URINE NEGATIVE (Neg); NITRITES, URINE NEGATIVE (Neg); OCCULT BLOOD,URINE SMALL (Neg); PROTEIN,URINE TRACE mg/dl (Neg); UROBILINOGEN,URINE 0.2 E.U/dL (0.2-1.0)
[2022-11-07 20:06] LABS: UA COLLECTION TYPE STRAIGHT CATH
[2022-11-07 20:19] LABS: BACTERIA,URINE FEW /HPF (Neg); SQUAMOUS EPITHELIAL CELL,UR FEW /LPF (FEW)
[2022-11-07 20:20] LABS: COARSE GRANULAR CAST 0-3 /LPF (NEGATIVE); MUCUS STRANDS FEW /LPF (Neg)
[2022-11-08] MEDS ORDERED: OLANZapine **IM** 10 mg inj. IM STA (04:55)
[2022-11-08] MEDS ORDERED: LORazepam 2 mg/ml vial IM STA (04:55)
--- NOTE | 2022-11-08 04:56 | NUR ---
Pt has been awake all night long, standing in her doorway talking non stop. She is now getting verbally abusive and agitated even more so. Received orders to adm. medications.
--- NOTE | 2022-11-08 05:06 | NUR ---
security assist for med administration, pt did very well though. She is now sitting on her bed drinking water and talking non stop about non sense.
--- NOTE | 2022-11-08 05:41 | NUR ---
BS commode in her room and pt just finished using it. Unknown if there is urine in the pot.
--- NOTE | 2022-11-08 05:45 | NUR ---
Pt had large normal formed BM and voided.
[2022-11-08] MEDS: amLODIPine 5mg tablet PO SCH (07:59)
[2022-11-08] MEDS: atorvastatin 20mg tablet PO SCH (07:59)
[2022-11-08] MEDS: aspirin 81mg tab.chew PO SCH (07:59)
[2022-11-08] MEDS: lisinopril 20mg tablet PO SCH (07:59)
--- NOTE | 2022-11-08 11:51 | NUR ---
patient sleeping. no distress noted. family updated on plan of care.
--- NOTE | 2022-11-08 13:05 | NUR ---
tech inventoried pt bagged belongings, pt did not have valuables sent off to the safe. pt belongigns placed in corresponding locker to room number.
--- NOTE | 2022-11-08 13:11 | NUR ---
Received pt from [facility] ER. Pt ambulated independently to bed 20. Pt utilized restroom and is now sitting up in her bed, eating her lunch.
--- NOTE | 2022-11-08 13:11 | NUR ---
giuliana sent pt packet to [facility]
--- NOTE | 2022-11-08 15:12 | NUR ---
Pt. sleeping on her backside, noted rise and fall of chest.
--- NOTE | 2022-11-08 16:30 | NUR ---
Pt being evaluated by [facility].
--- NOTE | 2022-11-08 17:08 | NUR ---
Pt awake talking to herself, no distress noted.
--- NOTE | 2022-11-08 17:41 | NUR ---
Vital signs obtained. No distress noted. Pt is alert and speaking with tech.
--- NOTE | 2022-11-08 18:52 | NUR ---
Report given to Laury Dubose activity aide at [facility]. Patient is being considered for admission.
--- NOTE | 2022-11-08 18:52 | NUR ---
Dinner tray at bedside. Patient is sleeping heavily. No distress noted.
--- NOTE | 2022-11-08 18:58 | NUR ---
Client to be admitted to [facility] (RM 325[facility]) for psychosis per Dr. Costello.
--- NOTE | 2022-11-08 20:29 | NUR ---
Patient is awake, she had consumed her dinner. Patient now rambles on. Speech is tangential. She presents as delusional. She has a sabianist fixation at this time. Patient is remaining in bed.
--- NOTE | 2022-11-08 20:35 | NUR ---
H drink box mechanic states patient will be addmited to their unit later tonight.
--- NOTE | 2022-11-08 21:13 | NUR ---
Patient continues to ramble. She takes redirection well. She talks to thinks and people who are not there.
[2022-11-08] MEDS ORDERED: mag hydrox/Alum hydrox/simeth 30ml oral suspension PO PRN (22:50)
[2022-11-08] MEDS ORDERED: magnesium hydroxide 30ml (MOM) UD suspension PO PRN (22:50)
[2022-11-08] MEDS ORDERED: acetaminophen 325mg tablet PO PRN ×2 (22:50)
[2022-11-08] MEDS ORDERED: loperamide 2mg capsule PO PRN (22:50)
[2022-11-08] MEDS ORDERED: LORazepam 1 MG tablet PO ONE (23:10)
[2022-11-08] MEDS ORDERED: OLANZAPINE 5 MG TABLET PO ONE (23:25)
[2022-11-08 23:26] VITALS: BP 121/63
[2022-11-08] MEDS ORDERED: OLAN5TAB5 PO (23:30)
--- NOTE | 2022-11-08 23:51 | NUR ---
TRASH CANS AND PAPER TOWELS REMOVED FROM ROOM. Client was placing belongings (soap dispenser, etc) in trash and playing in the trash. Client may clog toilet with paper towels. A towel was placed in room and paper towels were removed.
--- NOTE | 2022-11-09 04:15 | NUR ---
CHARTER REPRESENTATIVE NOTE: LEGAL HOLD: 5150 for GD PSYCH HX: Longstanding history of psychosis. Dementia was ruled-out by . MEDICAL HX: TIA, CVA (?), HTN, gluten intolerance, elevated WBC's on admit. REASON FOR ADMIT: Client stated "I'm in [place]." Client presents with confusion, altered thoughts, and disorganized behavior. Client is unable to formulate a plan for food, group home, and clothing. INTERVENTIONS: Admission assessments. Q 15 minute checks for safety. Mccormick to unit. RESPONSE: Client arrived on unit at 22:47, in a wheelchair, accompanied by and USHA Jc. Client refused skin and physical assessments. She stated, "You already have my DNA! I don't need to do this!" Vital signs were taken. Client was hyperverbal with loose associations and delusional statements. Client was restless and easily irritated. Resistive to care. She was escorted to her room where she began to place items on the toilet, rummage through the trash, put paper towels around the room. Trash cans and paper towels were removed from clients room (to avoid client stopping up the toilet). She was given a cloth towel. Client entered another patients room and required redirection. Dr Costello ordered 1 mg Ativan Tab PO for anxiety/agitation. Client fell asleep w/o difficulty.
[2022-11-09 07:34] VITALS: BP 127/81
[2022-11-09] MEDS: amLODIPine 5mg tablet PO SCH (08:00)
[2022-11-09] MEDS: aspirin 81mg tab.chew PO SCH (08:00)
[2022-11-09] MEDS: atorvastatin 20mg tablet PO SCH (08:00)
[2022-11-09] MEDS: lisinopril 20mg tablet PO SCH (08:00)
--- NOTE | 2022-11-09 18:01 | NUR ---
NURSING PROGRESS NOTE: Problem: Pt. admitted from ER OF for 5150 for GD. Pt. presents with confusion, altered thoughts, and disorganized behavior. Client is unable to formulate a plan for food, custodial, and clothing. Per report, dementia was ruled out by MD. Pt. has a MEDICAL HX of: TIA, CVA, HTN, gluten intolerance, elevated WBC's on admit. INTERVENTIONS: Medication administration, 1:1 MH assessment, maintained a safe and supportive environment, provided clear and simple instructions, provided encouragement regarding performance of ADLs, monitored behaviors and maintained clear boundaries, maintained Q15 minute safety checks. Re-direction. Verbal de-escalation. Reality orientation. RESPONSE: RN received pt. asleep in bed. Pt. awoke and refused medications but ate her breakfast. Pt. is only oriented to herself. Pt. does not know why she is here and makes tangential, nonsensical statements, stating, Oh you must know Im here for the twins, they are tanya Im mostly Telugu and I know a lot of nice Catholics. Pt. becomes paranoid when RN encourages her to take her medical medications, stating, Im not sure about these, Ill have to verify them. Pt. napped approx. 2 hours in the afternoon. Pt. awoke from her nap agitated and attempted and yelling paranoid delusions about provider being a threat. Pt. attempted to grab the provider and staff escorted pt. into the seclusion room. Pt. was in the seclusion room from 16:38- 17:55. Pt. released and offered her dinner in the community room. PLAN: Patient is gravely disabled. Pt is unable to provide food custodial and clothing and requires medication adjustments in a safe and supportive environment and in need of crisis intervention.
[2022-11-09 19:00] VITALS: BP 140/62
[2022-11-09] MEDS ORDERED: LORazepam 1 MG tablet PO ONE (20:45)
[2022-11-09] MEDS: OLANZapine 5mg rapidly disint. tablet PO SCH (21:13)
[2022-11-09] MEDS: cefpodoxime proxetil 100mg tablet PO SCH (23:35)
--- NOTE | 2022-11-10 05:26 | NUR ---
NURSING PROGRESS NOTE: Problem: Pt. admitted from ER OF for 5150 for GD. Pt. presents with confusion, altered thoughts, and disorganized behavior. Client is unable to formulate a plan for food, halfway, and clothing. Per report, dementia was ruled out by MD. Pt. has a MEDICAL HX of: TIA, CVA, HTN, gluten intolerance, elevated WBC's on admit. INTERVENTIONS: Medication administration, 1:1 MH assessment, maintained a safe and supportive environment, provided clear and simple instructions, provided encouragement regarding performance of ADLs, monitored behaviors and maintained clear boundaries, maintained Q15 minute safety checks. Re-direction. Verbal de-escalation. Reality orientation. RESPONSE: Patient was observed standing in doorway shouting at other patients at beginning of shift. Eventually patient fell asleep. patient was awaken when another patient started laughing really loud. Patient covered her head with a corey shift and pillow and stuffed a sock in her mouth. Patient began shouting and talking very loudly. Patient began yelling at every patient that walked by. Patient started telling wild and random stories and became aggressive towards staff and other patients. ordered prn Ativan along with other night medications. Medications were crushed and patient required a lot of persuading to finally take medication. Patient continued to shout and yell long after other patient went to bed. Patient was encourage to returned to her room but continued to argue and shout at staff. Patient was placed in unlocked observation room where she finally calmed PLAN: Patient is gravely disabled. Pt is unable to provide food halfway and clothing and requires medication adjustments in a safe and supportive environment and in need of crisis intervention.
[2022-11-10 08:00] VITALS: BP 126/78
[2022-11-10] MEDS: lactobacillus rhamnosus 10,000 MMU CELLS/CAPSULE PO SCH ×2 (08:00→20:00)
[2022-11-10] MEDS: atorvastatin 20mg tablet PO SCH (08:57)
[2022-11-10] MEDS: carvedilol 6.25mg tablet PO SCH ×2 (08:58→20:00)
[2022-11-10] MEDS: cefpodoxime proxetil 100mg tablet PO SCH ×2 (08:58→17:30)
[2022-11-10] MEDS: aspirin 81mg tab.chew PO SCH (08:58)
[2022-11-10] MEDS: amLODIPine 5mg tablet PO SCH (08:59)
[2022-11-10] MEDS: lisinopril 20mg tablet PO SCH (08:59)
--- NOTE | 2022-11-10 09:23 | NUR ---
Pt. was compliant with taking her ordered medications when administered in yogurt with much encouragement from staff. Pt. attempted to repeatedly spit medications out, but consented to eventually swallowing them with ongoing encouragement from staff. She continues to be very confused and disorganized and believed her medications to be "Pieces of candy," in her yogurt despite medication education provided from staff. Pt. is also very hyperverbal and appears hypomanic. Will continue to monitor pt. closely. Addendum: 11/10/22 at 1021 by Joleen Grace RN Pt. continues to refuse ordered lab draws despite education and encouragement provided from staff.
[2022-11-10 11:02] LABS: BASOPHILS % (AUTO) 0.5 % (0-1); EOSINOPHILS # (AUTO) 0.1 X10'3 (0-0.9); EOSINOPHILS % (AUTO) 0.8 % (0-6); HEMATOCRIT 40.1 % (35.0-45.0); LYMPHOCYTES # (AUTO) 1.7 X10'3 (1.1-4.8); MEAN CORPUSCULAR HEMOGLOBIN 27.4 PG (27.0-31.0); MEAN CORPUSCULAR HGB CONC 32.4 g/dL (33.0-36.5); MEAN CORPUSCULAR VOLUME 84.5 FL (78-98); MEAN PLATELET VOLUME 9.1 FL (7.4-10.4); MONOCYTES # (AUTO) 0.8 X10'3 (0-0.9); MONOCYTES % (AUTO) 9.8 % (2-12); NEUTROPHILS # (AUTO) 5.8 X10'3 (1.8-7.7); NEUTROPHILS % (AUTO) 68.9 % (42-75); PLATELET COUNT 392 X10'3 (140-440); RED BLOOD COUNT 4.75 X10'6 (4.20-5.60); WHITE BLOOD COUNT 8.5 X10'3 (4.5-11.0)
[2022-11-10 11:17] LABS: ALANINE AMINOTRANSFERASE 12 U/L (12-78); ALBUMIN 3.5 G/DL (3.4-5.0); ALBUMIN/GLOBULIN RATIO 0.9 (1.1-1.5); ALKALINE PHOSPHATASE 106 IU/L (46-116); ANION GAP 11 (8-16); ASPARTATE AMINO TRANSFERASE 22 U/L (10-37); BILIRUBIN,TOTAL 1.2 MG/DL (0.1-1.0); BLOOD UREA NITROGEN 32 MG/DL (7-18); CALCIUM 9.5 MG/DL (8.5-10.1); CHLORIDE 101 MMOL/L (99-107); GLUCOSE 150 MG/DL (70-104); MAGNESIUM 2.3 MG/DL (1.5-2.4); SODIUM 137 MMOL/L (135-145); TOTAL CARBON DIOXIDE 24.8 MMOL/L (24-32); TOTAL PROTEIN 7.5 G/DL (6.4-8.2); eGFR 54 ML/MIN
--- NOTE | 2022-11-10 18:00 | NUR ---
NURSING PROGRESS NOTE Problem: Pt. admitted from ER OF for 5150 for GD. Pt. presents with confusion, altered thoughts, and disorganized behavior. Client is unable to formulate a plan for food, fci, and clothing. Per report, dementia was ruled out by MD. Pt. has a MEDICAL HX of: TIA, CVA, HTN, gluten intolerance, elevated WBC's on admit. Interventions: Medication administration, 1:1 MH assessment, maintained a safe and supportive environment, provided clear and simple instructions, provided encouragement regarding performance of ADLs, monitored behaviors and maintained clear boundaries, maintained Q15 minute safety checks. Re-direction. Verbal de-escalation. Reality orientation. Response: Received Pt sleeping in observation room w/o distress at change of shift. Pt woke for vitals and was cooperative. Pt speaking in word salad and loose associations. Pt went to community room for breakfast and took AM meds with yogurt with much effort. Pt looked out window for a long time and socialized in community room with other Pts well and appropriately. Pt appeared to be having a good time smiling and commenting on TV and conversing. Pt denied having a UTI and refused [address]. Plan: Patient is gravely disabled. Pt is unable to provide food fci and clothing and requires medication adjustments in a safe and supportive environment and in need of crisis intervention.
[2022-11-10] MEDS: OLANZapine 5mg rapidly disint. tablet PO SCH (21:00)
--- NOTE | 2022-11-10 21:51 | NUR ---
Refused VS and Meds after repeated attempts
--- NOTE | 2022-11-11 04:07 | NUR ---
NURSING PROGRESS NOTE Problem: Pt. admitted from ER OF for 5150 for GD. Pt. presents with confusion, altered thoughts, and disorganized behavior. Client is unable to formulate a plan for food, penitentiary, and clothing. Per report, dementia was ruled out by MD. Pt. has a MEDICAL HX of: TIA, CVA, HTN, gluten intolerance, elevated WBC's on admit. Interventions: Medication administration, 1:1 MH assessment, maintained a safe and supportive environment, provided clear and simple instructions, provided encouragement regarding performance of ADLs, monitored behaviors and maintained clear boundaries, maintained Q15 minute safety checks. Re-direction. Verbal de-escalation. Reality orientation. Response: Pt sleeping in room at start of shift. Woke up about 1930. Conversation disorganized flight of ideas. Perseverated on the idea that she had committed a "mortal sin" did not reveal what the "Mortal sin" was. pt delusional at times appears to be responding to internal stimuli. Pt isolated to her room. Refused medications or even to eat any yogurt, which [facility] had used to give her meds in. Her conversation continued to be disorganized. At she asked staff not come in her room and she hid behind the curtain and covered her face with her hands so she could not be seen while talking. She stayed in her room and went to sleep. Pt woke up about 0300 was staying in her room and being quiet. Another attempt by 2 different staff to get her to take her medications was unsuccessful. Plan: Patient is gravely disabled. Pt is unable to provide food penitentiary and clothing and requires medication adjustments in a safe and supportive environment and in need of crisis intervention.
[2022-11-11] MEDS: amLODIPine 5mg tablet PO SCH (08:00)
[2022-11-11] MEDS: aspirin 81mg tab.chew PO SCH (08:00)
[2022-11-11] MEDS: atorvastatin 20mg tablet PO SCH (08:00)
[2022-11-11] MEDS: lactobacillus rhamnosus 10,000 MMU CELLS/CAPSULE PO SCH ×2 (08:00→20:46)
[2022-11-11] MEDS: carvedilol 6.25mg tablet PO SCH ×2 (08:00→20:46)
[2022-11-11] MEDS: lisinopril 20mg tablet PO SCH (08:00)
[2022-11-11] MEDS: cefpodoxime proxetil 100mg tablet PO SCH ×2 (08:30→17:30)
[2022-11-11] MEDS ORDERED: LORazepam 2 mg/ml vial IM ONE (09:30)
[2022-11-11] MEDS ORDERED: haloperidol lactate 5mg/ml inj IM ONE (09:30)
[2022-11-11 14:00] LABS: BASOPHILS % (AUTO) 0.4 % (0-1); EOSINOPHILS # (AUTO) 0.1 X10'3 (0-0.9); EOSINOPHILS % (AUTO) 1.2 % (0-6); HEMATOCRIT 35.8 % (35.0-45.0); HEMOGLOBIN 11.7 g/dl (12.0-16.0); LYMPHOCYTES # (AUTO) 2.3 X10'3 (1.1-4.8); LYMPHOCYTES % (AUTO) 29.2 % (21-51); MEAN CORPUSCULAR HEMOGLOBIN 27.6 PG (27.0-31.0); MEAN CORPUSCULAR HGB CONC 32.8 g/dL (33.0-36.5); MEAN CORPUSCULAR VOLUME 84.2 FL (78-98); MONOCYTES % (AUTO) 13.4 % (2-12); NEUTROPHILS # (AUTO) 4.3 X10'3 (1.8-7.7); NEUTROPHILS % (AUTO) 55.8 % (42-75); PLATELET COUNT 354 X10'3 (140-440); RED BLOOD COUNT 4.25 X10'6 (4.20-5.60); RED CELL DISTRIBUTION WIDTH 13.8 % (11.5-14.5); WHITE BLOOD COUNT 7.8 X10'3 (4.5-11.0)
[2022-11-11 14:06] LABS: ALANINE AMINOTRANSFERASE 15 U/L (12-78); ALBUMIN/GLOBULIN RATIO 0.9 (1.1-1.5); ALKALINE PHOSPHATASE 90 IU/L (46-116); ASPARTATE AMINO TRANSFERASE 27 U/L (10-37); BILIRUBIN,TOTAL 0.6 MG/DL (0.1-1.0); BLOOD UREA NITROGEN 36 MG/DL (7-18); BUN/CREATININE RATIO 30.3 (6.6-38.0); CALCIUM 8.7 MG/DL (8.5-10.1); CHLORIDE 105 MMOL/L (99-107); CREATININE 1.19 MG/DL (0.40-0.90); GLUCOSE 84 MG/DL (70-104); MAGNESIUM 2.3 MG/DL (1.5-2.4); POTASSIUM 3.5 MMOL/L (3.5-5.1); TOTAL CARBON DIOXIDE 28.2 MMOL/L (24-32); TOTAL PROTEIN 6.5 G/DL (6.4-8.2); eGFR 44 ML/MIN
[2022-11-11 14:17] LABS: ANION GAP 7 (8-16); SODIUM 140 MMOL/L (135-145)
--- NOTE | 2022-11-11 15:22 | NUR ---
CASE MANAGEMENT Spoke to Pt's son today, Yogesh whom she lives with. He explained how these "delirium" episodes have started in the last few years after she had a stroke. He reported that for the last 6 months, since leaving [facility] she has been her normal self until last Friday. He reported that she is off all her mental health medications that she left [facility] with 6 months ago and has been doing great for months. He reported that he is good with her coming back to live with him once she has stabilized again. Yeni Nunez LCSW
[2022-11-11 16:16] VITALS: BP 119/53
--- NOTE | 2022-11-11 18:10 | NUR ---
NURSING PROGRESS NOTE Problem: Pt. admitted from ER OF for 5150 for GD. Pt. presents with confusion, altered thoughts, and disorganized behavior. Client is unable to formulate a plan for food, retirement, and clothing. Per report, dementia was ruled out by MD. Pt. has a MEDICAL HX of: TIA, CVA, HTN, gluten intolerance, elevated WBC's on admit. Interventions: 1:1 assessment, establishment of rapport, therapeutic communication, active listening, reality orientation, distraction, direction, redirection,show of support, encouragement to participate in unit procedures, encouragement to take PO meds, emergent IM medication administration, Q15 minute safety checks. Response: Pt refused to allow VS to be taken, pt refused lab draw, pt refused all PO meds, pt would not allow a physical assessment to be performed. Pt hyperverbal with nonstop nonsensical verbalizations, flight of ideas, disorganized, delusional, intrusive. Pt has no safety awareness, walking around with a pillow case on her head, approaches other patients including psychotic, aggressive young male patients getting in their face with officious, delusional verbalizations. Pt did not respond to direction, pt would not take PO meds, show of support and verbal de-escalation ineffective. GRECIA Harrison present on the unit, gave orders for emergent IM Haldol 5 mg, Ativan 1 mg, given at 0941. Pt napped for most of the rest of the day. Lab returned and was able to draw her blood. BUN 36, Cr 1.19. Pt is currently awake, calm, quiet, polite, and eating dinner in the dining room. Plan: Pt is psychotic, disorganized, gravely disabled. She needs stabilization with medication management and monitoring in a safe, therapeutic environment until stable.
[2022-11-11 20:00] VITALS: BP 129/66
[2022-11-11] MEDS: OLANZapine 5mg rapidly disint. tablet PO SCH (20:46)
[2022-11-12 07:30] VITALS: BP 127/54
[2022-11-12] MEDS: amLODIPine 5mg tablet PO SCH (08:00)
[2022-11-12] MEDS: carvedilol 6.25mg tablet PO SCH ×2 (08:00→20:36)
[2022-11-12] MEDS: aspirin 81mg tab.chew PO SCH (08:00)
[2022-11-12] MEDS: atorvastatin 20mg tablet PO SCH (08:00)
[2022-11-12] MEDS: lisinopril 20mg tablet PO SCH (08:00)
[2022-11-12] MEDS: lactobacillus rhamnosus 10,000 MMU CELLS/CAPSULE PO SCH ×2 (08:00→20:35)
[2022-11-12] MEDS: cefpodoxime proxetil 100mg tablet PO SCH ×2 (08:30→17:39)
[2022-11-12 11:50] LABS: BASOPHILS % (AUTO) 0.2 % (0-1); EOSINOPHILS # (AUTO) 0.2 X10'3 (0-0.9); EOSINOPHILS % (AUTO) 2.5 % (0-6); HEMATOCRIT 37.7 % (35.0-45.0); HEMOGLOBIN 12.2 g/dl (12.0-16.0); LYMPHOCYTES # (AUTO) 2.8 X10'3 (1.1-4.8); LYMPHOCYTES % (AUTO) 38.8 % (21-51); MEAN CORPUSCULAR HEMOGLOBIN 27.7 PG (27.0-31.0); MEAN CORPUSCULAR HGB CONC 32.3 g/dL (33.0-36.5); MEAN CORPUSCULAR VOLUME 85.9 FL (78-98); MEAN PLATELET VOLUME 8.4 FL (7.4-10.4); MONOCYTES # (AUTO) 0.9 X10'3 (0-0.9); NEUTROPHILS # (AUTO) 3.3 X10'3 (1.8-7.7); NEUTROPHILS % (AUTO) 46.5 % (42-75); PLATELET COUNT 340 X10'3 (140-440); RED BLOOD COUNT 4.39 X10'6 (4.20-5.60); RED CELL DISTRIBUTION WIDTH 14.7 % (11.5-14.5); WHITE BLOOD COUNT 7.2 X10'3 (4.5-11.0)
[2022-11-12 12:10] LABS: ALANINE AMINOTRANSFERASE 15 U/L (12-78); ALBUMIN 3.2 G/DL (3.4-5.0); ALBUMIN/GLOBULIN RATIO 0.9 (1.1-1.5); ALKALINE PHOSPHATASE 88 IU/L (46-116); ANION GAP 6 (8-16); ASPARTATE AMINO TRANSFERASE 33 U/L (10-37); BILIRUBIN,TOTAL 0.6 MG/DL (0.1-1.0); BLOOD UREA NITROGEN 37 MG/DL (7-18); BUN/CREATININE RATIO 36.3 (6.6-38.0); CALCIUM 8.9 MG/DL (8.5-10.1); CHLORIDE 101 MMOL/L (99-107); CREATININE 1.02 MG/DL (0.40-0.90); GLUCOSE 114 MG/DL (70-104); MAGNESIUM 2.2 MG/DL (1.5-2.4); POTASSIUM 3.4 MMOL/L (3.5-5.1); SODIUM 135 MMOL/L (135-145); TOTAL CARBON DIOXIDE 28.1 MMOL/L (24-32); TOTAL PROTEIN 6.8 G/DL (6.4-8.2); eGFR 53 ML/MIN
--- NOTE | 2022-11-12 17:35 | NUR ---
NURSING PROGRESS NOTE: Problem: Pt. admitted from ER OF for 5150 for GD. Pt. presents with confusion, altered thoughts, and disorganized behavior. Client is unable to formulate a plan for food, long-term, and clothing. Per report, dementia was ruled out by MD. Pt. has a MEDICAL HX of: TIA, CVA, HTN, gluten intolerance, elevated WBC's on admit. INTERVENTIONS: Medication administration, 1:1 MH assessment, maintained a safe and supportive environment, provided clear and simple instructions, provided encouragement regarding performance of ADLs, monitored behaviors and maintained clear boundaries, maintained Q15 minute safety checks. Re-direction. Reality orientation. RESPONSE: RN received pt. asleep in bed at start of shift. Pt. awoke late and ate breakfast in her room. Pt. ate only a few bites of her eggs, yogurt, and cheese. 1:1 done at bedside, pt. is confused, disorganized, tangential, and hyperverbal. Pt. allowed vital signs to be taken and took medications after much encouragement. Pt. gave urine sample and it was sent to the lab for culture. Pt. isolated to her room most of the day. Pt. appears to be paranoid about coming out of her room. Pt. had to be encouraged frequently to eat and drink. PLAN: Patient is gravely disabled. Pt is unable to provide food long-term and clothing and requires medication adjustments in a safe and supportive environment and in need of crisis intervention
[2022-11-12 20:00] VITALS: BP 136/80
[2022-11-12] MEDS: OLANZapine 5mg rapidly disint. tablet PO SCH (20:36)
--- NOTE | 2022-11-13 00:54 | NUR ---
NURSING PROGRESS NOTE: Problem: Pt. admitted from ER OF for 5150 for GD. Pt. presents with confusion, altered thoughts, and disorganized behavior. Client is unable to formulate a plan for food, senior care, and clothing. Per report, dementia was ruled out by MD. Pt. has a MEDICAL HX of: TIA, CVA, HTN, gluten intolerance, elevated WBC's on admit. INTERVENTIONS: Medication administration, 1:1 MH assessment, maintained a safe and supportive environment, provided clear and simple instructions, provided encouragement regarding performance of ADLs, monitored behaviors and maintained clear boundaries, maintained Q15 minute safety checks. Re-direction. Reality orientation. RESPONSE: Patient in room at shift change. Patient isolated to room sleeping most of the shift. patient refused snack. Patient took evening w/o complications. Patient made delusional nonsensical statements then went back to sleep. PLAN: Patient is gravely disabled. Pt is unable to provide food senior care and clothing and requires medication adjustments in a safe and supportive environment and in need of crisis intervention
[2022-11-13 07:23] VITALS: BP 131/63
--- NOTE | 2022-11-13 07:30 | NUR ---
Initial: Pt admitted w/ acute psychosis per EMR. Currently on Regular diet w/ avg intake 36% of meals which meets approximately 64% of est protein and energy needs. Pt is noted to frequently refuse meds and snacks. Will trial smoothies/shakes to see if pt is accepting of liquid calories. [facility] 11/12. Will continue to monitor. Recs: 1. Continue Regular diet; encourage PO 2. Smoothie WB, shake WL 3. Bowel care per rx 4. Weekly wts Addendum: 11/13/22 at [address] Amended: Links added.
[2022-11-13 08:35] LABS: BASOPHILS % (AUTO) 0.3 % (0-1); EOSINOPHILS # (AUTO) 0.2 X10'3 (0-0.9); EOSINOPHILS % (AUTO) 2.3 % (0-6); HEMATOCRIT 37.3 % (35.0-45.0); HEMOGLOBIN 12.2 g/dl (12.0-16.0); LYMPHOCYTES # (AUTO) 2.6 X10'3 (1.1-4.8); LYMPHOCYTES % (AUTO) 34.8 % (21-51); MEAN CORPUSCULAR HEMOGLOBIN 27.8 PG (27.0-31.0); MEAN CORPUSCULAR HGB CONC 32.6 g/dL (33.0-36.5); MEAN CORPUSCULAR VOLUME 85.4 FL (78-98); MEAN PLATELET VOLUME 9.1 FL (7.4-10.4); MONOCYTES # (AUTO) 0.9 X10'3 (0-0.9); MONOCYTES % (AUTO) 11.5 % (2-12); NEUTROPHILS # (AUTO) 3.9 X10'3 (1.8-7.7); NEUTROPHILS % (AUTO) 51.1 % (42-75); PLATELET COUNT 352 X10'3 (140-440); RED BLOOD COUNT 4.37 X10'6 (4.20-5.60); RED CELL DISTRIBUTION WIDTH 14.2 % (11.5-14.5); WHITE BLOOD COUNT 7.6 X10'3 (4.5-11.0)
[2022-11-13] MEDS: cefpodoxime proxetil 100mg tablet PO SCH ×2 (08:42→18:06)
[2022-11-13] MEDS: carvedilol 6.25mg tablet PO SCH ×2 (08:42→19:42)
[2022-11-13] MEDS: aspirin 81mg tab.chew PO SCH (08:42)
[2022-11-13] MEDS: atorvastatin 20mg tablet PO SCH (08:42)
[2022-11-13] MEDS: lisinopril 20mg tablet PO SCH (08:42)
[2022-11-13] MEDS: lactobacillus rhamnosus 10,000 MMU CELLS/CAPSULE PO SCH ×2 (08:43→19:42)
[2022-11-13] MEDS: amLODIPine 5mg tablet PO SCH (08:43)
[2022-11-13 09:24] LABS: ALANINE AMINOTRANSFERASE 13 U/L (12-78); ALBUMIN 2.8 G/DL (3.4-5.0); ALBUMIN/GLOBULIN RATIO 0.8 (1.1-1.5); ALKALINE PHOSPHATASE 85 IU/L (46-116); ANION GAP 11 (8-16); ASPARTATE AMINO TRANSFERASE 25 U/L (10-37); BILIRUBIN,TOTAL 0.6 MG/DL (0.1-1.0); BLOOD UREA NITROGEN 18 MG/DL (7-18); CALCIUM 8.4 MG/DL (8.5-10.1); CHLORIDE 107 MMOL/L (99-107); CREATININE 0.62 MG/DL (0.40-0.90); GLUCOSE 98 MG/DL (70-104); POTASSIUM 3.9 MMOL/L (3.5-5.1); SODIUM 141 MMOL/L (135-145); TOTAL CARBON DIOXIDE 23.5 MMOL/L (24-32); TOTAL PROTEIN 6.3 G/DL (6.4-8.2); eGFR > 90 ML/MIN
--- NOTE | 2022-11-13 15:29 | NUR ---
Therapeutic group DESCRIPTION Daily therapeutic groups support [facility] crisis-recovery environment, and meet medical necessity given the acuity of clients symptoms. Topic: psychosocial educationtriggers resulting in feelings (anxiety, fear, sadness), and what to do? Activity: creating a "staff trainer" with emotions, then on the inside, an affirmation such as "I am enough." "I am brave." or sayings clients wrote themselves. Client participated in group as evidenced by peer interactions, doing the tactile exercise (folding), helping others and this jingle writer with moving chairs and other activities, conversation with peers and staff regarding triggers and trigger reactions, and how to cope in a healthy way. INTERVENTION Therapeutic communication, peer support, peer validation, coping skills and psychosocial education. Secondarily--intellectual and physical activity, peer, and staff companionship, alleviating and discouraging isolation.
--- NOTE | 2022-11-13 18:01 | NUR ---
NURSING PROGRESS NOTE: Problem: Pt. admitted from ER OF for 5150 for GD. Pt. presents with confusion, altered thoughts, and disorganized behavior. Client is unable to formulate a plan for food, half-way, and clothing. Per report, dementia was ruled out by MD. Pt. has a MEDICAL HX of: TIA, CVA, HTN, gluten intolerance, elevated WBC's on admit. INTERVENTIONS: Medication administration, 1:1 MH assessment, maintained a safe and supportive environment, provided clear and simple instructions, provided encouragement regarding performance of ADLs, monitored behaviors and maintained clear boundaries, maintained Q15 minute safety checks. Re-direction. Reality orientation. RESPONSE: RN received pt. asleep in bed at start of shift. Pt. awoke for breakfast and took all medication. Pt. eats approx. 25% of her meals and needs prompting to eat and drink. Pt. drank approx. 1 pitcher of water. 1:1 done at bedside, pt. presents confused and is A&O only to herself. Pt. received victoria from a family friend, pt. became paranoid, stating, I dont know who this is from How can this be? Pt. isolated to her room most of the day. Pt. states, Im anticipating my roommate coming. Pt. observed napping in her bed intermittently. During the evening pt. came out of her room and asking questions of the staff. Pt. observed pacing the unit and socializing with peers. PLAN: Patient is gravely disabled. Pt is unable to provide food half-way and clothing and requires medication adjustments in a safe and supportive environment and in need of crisis intervention
[2022-11-13] MEDS: OLANZapine 2.5MG tablet PO SCH (19:42)
[2022-11-13 20:00] VITALS: BP 123/78
--- NOTE | 2022-11-14 00:33 | NUR ---
NURSING PROGRESS NOTE: Problem: Pt. admitted from ER OF for 5150 for GD. Pt. presents with confusion, altered thoughts, and disorganized behavior. Client is unable to formulate a plan for food, group home, and clothing. Per report, dementia was ruled out by MD. Pt. has a MEDICAL HX of: TIA, CVA, HTN, gluten intolerance, elevated WBC's on admit. INTERVENTIONS: Medication administration, 1:1 MH assessment, maintained a safe and supportive environment, provided clear and simple instructions, provided encouragement regarding performance of ADLs, monitored behaviors and maintained clear boundaries, maintained Q15 minute safety checks. Re-direction. Reality orientation. RESPONSE: Patient in hallway talking to peers and staff. Patient asked for phone to talk to son. The phone number was located and the patient was able to speak to him. The patient became upset about people taking her VS. Patient perseverated on people taking her VS all the time and wouldn't stop bothering her. Patient then went into her room and urinated into a foam cup which she reportedly needed as a urinalysis. Cup was removed from the patients room. patient then went to lay down in her bed. The patient refused a snack stating that she does not eat gluten. The patient took her evening meds w/o complications. The patient hunter to sleep shortly after. \ PLAN: Patient is gravely disabled. Pt is unable to provide food group home and clothing and requires medication adjustments in a safe and supportive environment and in need of crisis intervention
[2022-11-14] MEDS ORDERED: OLANZapine 5mg rapidly disint. tablet PO ONE (01:55)
[2022-11-14] MEDS ORDERED: LORazepam 1 MG tablet PO ONE (01:55)
--- NOTE | 2022-11-14 02:15 | NUR ---
PATIENT WOKE DELIRIOUS, making unorganized statements, begining to become agitated. Disrupting roommate. Patient given 1mg Ativan, 5mg Zyprexa PO.
[2022-11-14 08:00] VITALS: BP 137/71
[2022-11-14] MEDS: aspirin 81mg tab.chew PO SCH (08:13)
[2022-11-14] MEDS: atorvastatin 20mg tablet PO SCH (08:15)
[2022-11-14] MEDS: amLODIPine 5mg tablet PO SCH (08:15)
[2022-11-14] MEDS: carvedilol 6.25mg tablet PO SCH ×2 (08:15→21:03)
[2022-11-14] MEDS: cefpodoxime proxetil 100mg tablet PO SCH ×2 (08:16→17:28)
[2022-11-14] MEDS: lactobacillus rhamnosus 10,000 MMU CELLS/CAPSULE PO SCH ×2 (08:16→21:03)
[2022-11-14] MEDS: lisinopril 20mg tablet PO SCH (08:16)
--- NOTE | 2022-11-14 13:36 | NUR ---
5250 upheld for GD
--- NOTE | 2022-11-14 17:35 | NUR ---
NURSING PROGRESS NOTE: Problem: Pt. admitted from ER OF for 5150 for GD. Pt. presents with confusion, altered thoughts, and disorganized behavior. Client is unable to formulate a plan for food, longterm, and clothing. Per report, dementia was ruled out by MD. Pt. has a MEDICAL HX of: TIA, CVA, HTN, gluten intolerance, elevated WBC's on admit. INTERVENTIONS: Medication administration, 1:1 MH assessment, maintained a safe and supportive environment, provided clear and simple instructions, provided encouragement regarding performance of ADLs, monitored behaviors and maintained clear boundaries, maintained Q15 minute safety checks. Re-direction. Reality orientation. RESPONSE: RN received pt. asleep in bed at start of shift. Pt. awoke for breakfast and took all medications. Pt. ate approx. 75% of her breakfast. 1:1 done at bedside, pt. is hyperverbal, is confused and disorganized, A&O only to self. Pt. states, Now youll remember that we got the work done earlier. And you know that we know each other from long ago, but Ill tell you what, they cheese is good. Pt. came out of her room more frequently today. Pt. engaging other patients in conversation. PO fluid intake encouraged. PLAN: Patient is gravely disabled. Pt is unable to provide food longterm and clothing and requires medication adjustments in a safe and supportive environment and in need of crisis intervention
[2022-11-14 19:00] VITALS: BP 109/61
[2022-11-14] MEDS: OLANZapine 2.5MG tablet PO SCH (21:04)
--- NOTE | 2022-11-15 01:08 | NUR ---
NURSING PROGRESS NOTE: Problem: Pt. admitted from ER OF for 5150 for GD. Pt. presents with confusion, altered thoughts, and disorganized behavior. Client is unable to formulate a plan for food, residential, and clothing. Per report, dementia was ruled out by MD. Pt. has a MEDICAL HX of: TIA, CVA, HTN, gluten intolerance, elevated WBC's on admit. INTERVENTIONS: Medication administration, 1:1 MH assessment, maintained a safe and supportive environment, provided clear and simple instructions, provided encouragement regarding performance of ADLs, monitored behaviors and maintained clear boundaries, maintained Q15 minute safety checks. Re-direction. Reality orientation. RESPONSE: Patient in hallway talking with peers and staff at shift change. patient appears more coherent today versus yesterday evening. Patient seems to be in a good mood. Patient reports that she had her VS taken and she will lay down in her room and wait for med pass. Patient spends most of the evening in her room resting. Patient refused snack. Patient took evening meds w/o complications. Patient went to bed shortly after med pass. PLAN: Patient is gravely disabled. Pt is unable to provide food residential and clothing and requires medication adjustments in a safe and supportive environment and in need of crisis intervention
[2022-11-15 08:00] VITALS: BP 125/75
[2022-11-15] MEDS: aspirin 81mg tab.chew PO SCH (08:13)
[2022-11-15] MEDS: lactobacillus rhamnosus 10,000 MMU CELLS/CAPSULE PO SCH ×2 (08:14→19:49)
[2022-11-15] MEDS: atorvastatin 20mg tablet PO SCH (08:14)
[2022-11-15] MEDS: carvedilol 6.25mg tablet PO SCH ×2 (08:14→19:49)
[2022-11-15] MEDS: lisinopril 20mg tablet PO SCH (08:15)
[2022-11-15] MEDS: amLODIPine 5mg tablet PO SCH (08:15)
[2022-11-15] MEDS: cefpodoxime proxetil 100mg tablet PO SCH ×2 (08:16→17:59)
--- NOTE | 2022-11-15 17:52 | NUR ---
Nursing Progress Note: Problem : Problem: Pt. admitted from ER OF for 5150 for GD. Pt. presents with confusion, altered thoughts, and disorganized behavior. Client is unable to formulate a plan for food, intermediate, and clothing. Per report, dementia was ruled out by MD. Pt. has a MEDICAL HX of: TIA, CVA, HTN, gluten intolerance, elevated WBC's on admit. Interventions : Introduced self and established rapport, maintained a safe and supportive environment, provided clear and simple instructions, provided active listening and positive encouragement, and maintained Q 15min safety checks. Response : Received pt. sleeping in bed at the beginning of the shift, she awoke and required direction from staff to attend breakfast in the Group Room. Pt. was complaint with all medications, however presented with some confusion and stated, "These are my afternoon medications," requiring education from this teletypewriter installer. After breakfast, pt. remained up in the Group Room and was observed to be interacting appropriately with her peers and was also helpful to them. 1:1 was completed later at bedside, pt. presents with some ongoing going confusion and is A&O X2. When questioned which hospital she is at she stated, "I'm in a room that looks out on the roof where you can see sun and snow." Pt's speech is rapid and she speaks in a tangental manner switching rapidly between topics. She is difficult to communicate with because she is difficult to interrupt. Pt. speaks at length bouncing between topics r/t the previous of one of her sons, various dates of family members, life on a boat, and her strong relationship with her family. Pt. remains up throughout the day interacting appropriately with others. Plan : Pt. continues to require a safe and supportive environment.
[2022-11-15 19:00] VITALS: BP 115/62
[2022-11-15] MEDS: OLANZapine 2.5MG tablet PO SCH (20:02)
--- NOTE | 2022-11-16 05:11 | NUR ---
Nursing Progress Note: Problem: Problem: Pt. admitted from ER OF for 5150 for GD. Pt. presents with confusion, altered thoughts, and disorganized behavior. Client is unable to formulate a plan for food, long-term, and clothing. Per report, dementia was ruled out by MD. Pt. has a MEDICAL HX of: TIA, CVA, HTN, and gluten intolerance, elevated WBC's on admit. Interventions: Introduced self and established rapport, maintained a safe and supportive environment, provided clear and simple instructions, provided active listening and positive encouragement, and maintained Q 15min safety checks. Response: Pt in day room sitting with cohort at start of shift having hot maria g and laughing. 1:1 assessment pt states she does not have any SI/HI/AV/HV. Pt states she is not here for any mental health issues. When asked how she is doing pt states wonderful, couldnt be better. I had a wonderful day. Pt changes subjects in the middle of her sentence. HS meds administered with encouragement. Pt was in the day room with cohort until bedtime and slept through the night. Plan: Pt. continues to require a safe and supportive environment.
[2022-11-16 08:16] VITALS: BP 150/64
[2022-11-16] MEDS: aspirin 81mg tab.chew PO SCH (08:28)
[2022-11-16] MEDS: carvedilol 6.25mg tablet PO SCH ×2 (08:28→20:29)
[2022-11-16] MEDS: lisinopril 20mg tablet PO SCH (08:28)
[2022-11-16] MEDS: cefpodoxime proxetil 100mg tablet PO SCH ×2 (08:29→17:52)
[2022-11-16] MEDS: amLODIPine 5mg tablet PO SCH (08:30)
[2022-11-16] MEDS: atorvastatin 20mg tablet PO SCH (08:31)
[2022-11-16] MEDS: lactobacillus rhamnosus 10,000 MMU CELLS/CAPSULE PO SCH ×2 (08:31→20:30)
--- NOTE | 2022-11-16 17:49 | NUR ---
Nursing Progress Note: Problem : Problem: Pt. admitted from ER OF for 5150 for GD. Pt. presents with confusion, altered thoughts, and disorganized behavior. Client is unable to formulate a plan for food, long-term, and clothing. Per report, dementia was ruled out by MD. Pt. has a MEDICAL HX of: TIA, CVA, HTN, gluten intolerance, elevated WBC's on admit. Interventions : Introduced self and established rapport, maintained a safe and supportive environment, provided clear and simple instructions, provided active listening and positive encouragement, and maintained Q 15min safety checks. Response : Received patient sleeping at shift change. Patient took all morning medications without hesitation. She is pleasantly confused. She ate breakfast and attended the morning group in the community room. She has been walking the halls and interacting appropriately with others. She has been out of her room most of the day. Conversations are disorganized and all over the place. She bounces from one topic to the other. Overall patient is observed smiling and interacting with peers throughout the day. Plan : Pt. continues to require a safe and supportive environment.
[2022-11-16 19:00] VITALS: BP 97/49
[2022-11-16] MEDS: OLANZapine 2.5MG tablet PO SCH (20:30)
[2022-11-16 21:31] VITALS: BP 144/67
[2022-11-17] MEDS ORDERED: LORazepam 1 MG tablet PO ONE (02:30)
[2022-11-17] MEDS ORDERED: OLANZapine 5mg rapidly disint. tablet PO ONE (02:30)
--- NOTE | 2022-11-17 04:08 | NUR ---
Nursing Progress Note: Problem: Problem: Pt. admitted from ER OF for 5150 for GD. Pt. presents with confusion, altered thoughts, and disorganized behavior. Client is unable to formulate a plan for food, prison, and clothing. Per report, dementia was ruled out by MD. Pt. has a MEDICAL HX of: TIA, CVA, HTN, and gluten intolerance, elevated WBC's on admit. Interventions Provide medication administration and medication management; Maintained a safe and supportive environment; Clear and simple instructions; Direction and encouragement regarding performance of ADLs; monitored behaviors and maintained clear boundaries; Patient physical assessment and 1:1 patient interview; Therapeutic conversation and active listening; Patient education and monitoring. Maintained Q 15min safety checks. Response: Pt in day room sitting with cohort at start of shift having. 1:1 assessment pt states she does not have any SI/HI/AV/HV. When asked how she is doing pt states Im good. HS meds administered. Pt and roommate was working on [employer] in room until bedtime. Pt awoke at 0200 being very disorganized and hyper verbal speaking loudly. Pt was moved to the observation room so roommate can get some sleep. PRN Ativan 1mg and Zyprexa 5mg administered. Pt was walking around the room with water pitcher on her head. Pt was confused on how to put her slippers on her feet. Pt seen with her slippers on her head. Pt walk out of the room with no pants on in just her underwear and top green scrub. Pt was redirected back to the observation room. Pt was observed talking to herself. Pt laid down and went back to sleep at 0400. Plan: Pt. continues to require a safe and supportive environment.
[2022-11-17 07:58] VITALS: BP 114/63
[2022-11-17] MEDS: atorvastatin 20mg tablet PO SCH (08:30)
[2022-11-17] MEDS: lactobacillus rhamnosus 10,000 MMU CELLS/CAPSULE PO SCH ×2 (08:30→20:06)
[2022-11-17] MEDS: aspirin 81mg tab.chew PO SCH (08:30)
[2022-11-17] MEDS: carvedilol 6.25mg tablet PO SCH ×2 (08:30→20:00)
[2022-11-17] MEDS: amLODIPine 5mg tablet PO SCH (08:30)
[2022-11-17] MEDS: lisinopril 20mg tablet PO SCH (08:31)
[2022-11-17] MEDS: cefpodoxime proxetil 100mg tablet PO SCH (08:31)
--- NOTE | 2022-11-17 17:43 | NUR ---
Nursing Progress Note: Problem : Problem: Pt. admitted from ER OF for 5150 for GD. Pt. presents with confusion, altered thoughts, and disorganized behavior. Client is unable to formulate a plan for food, correction, and clothing. Per report, dementia was ruled out by . Pt. has a MEDICAL HX of: TIA, CVA, HTN, gluten intolerance, elevated WBC's on admit. Interventions : Maintained a safe and supportive environment, provided clear and simple instructions, provided active listening and positive encouragement, provided redirection as needed, and maintained Q 15min safety checks. Response : Received pt. sleeping in the Observation Room at the beginning of the shift, per report from bowling alley operator she became very disorganized and had difficulty sleeping during the night. Pt. was awoken to attend breakfast and required direction from staff. She presented as very disorganized with nonsensical speech. Pt. ate breakfast and her disorganization and speech began to gradually improve. She began speaking in a linear manner and apologized to staff for her behaviors during the night. Pt. stated, "I shouldn't try to do things that I'm not supposed to," this jingle writer provided active listening and positive encouragement and pt. reported contentment. Pt. presented as somewhat hypomanic and impulsive during the morning and made multiple requests from staff requiring some redirection with effectiveness. She continues to present as hyperverbal with a circumstantial thought process taking a long time to get to the point. Pt. showered independently, attended later attended the patio with others. Plan : Pt. continues to require a safe and supportive environment and medication adjustments.
[2022-11-17 19:37] VITALS: BP 98/55
[2022-11-17] MEDS: olanzapine 10mg tablet PO SCH (20:06)
--- NOTE | 2022-11-17 21:11 | NUR ---
Nursing Progress Note: Problem : Problem: Pt. admitted from ER OF for 5150 for GD. Pt. presents with confusion, altered thoughts, and disorganized behavior. Client is unable to formulate a plan for food, chcf, and clothing. Per report, dementia was ruled out by MD. Pt. has a MEDICAL HX of: TIA, CVA, HTN, gluten intolerance, elevated WBC's on admit. Interventions : Maintained a safe and supportive environment, provided clear and simple instructions, provided active listening and positive encouragement, provided redirection as needed, and maintained Q 15min safety checks. Response : Pt was napping at change of shift, and was awaken for snacks. Pt declined a snack stating "Im happy with sleeping instead tonight." Pt is pleasant and reports she had a good day but is feeling tired. Pts Coreg was held due to systolic of 98. Pt took HS meds and went back to sleep. Plan : Pt. continues to require a safe and supportive environment and medication adjustments.
--- NOTE | 2022-11-18 07:21 | NUR ---
Reassessment: Pt continues on Regular gluten free diet w/ improvement in intake, now mostly 75-100% intake of meals since 11/15 meeting est needs. Pt is pleasantly confused per documentation. LBM 11/17. No change to recommendations at this time, will continue to monitor. Recs: 1. Continue Regular diet; encourage PO 2. Smoothie WB, shake WL 3. Bowel care per rx 4. Weekly wts Addendum: 11/18/22 at [address] Amended: Links added.
[2022-11-18 08:00] VITALS: BP 109/53
[2022-11-18] MEDS: carvedilol 6.25mg tablet PO SCH ×2 (08:12→20:26)
[2022-11-18] MEDS: aspirin 81mg tab.chew PO SCH (08:12)
[2022-11-18] MEDS: lactobacillus rhamnosus 10,000 MMU CELLS/CAPSULE PO SCH ×2 (08:12→20:26)
[2022-11-18] MEDS: atorvastatin 20mg tablet PO SCH (08:13)
[2022-11-18] MEDS: amLODIPine 5mg tablet PO SCH (08:13)
[2022-11-18] MEDS: lisinopril 20mg tablet PO SCH (08:13)
--- NOTE | 2022-11-18 17:32 | NUR ---
Nursing Progress Note: Problem : Problem: Pt. admitted from ER OF for 5150 for GD. Pt. presents with confusion, altered thoughts, and disorganized behavior. Client is unable to formulate a plan for food, longterm, and clothing. Per report, dementia was ruled out by MD. Pt. has a MEDICAL HX of: TIA, CVA, HTN, gluten intolerance, elevated WBC's on admit. Interventions : Maintained a safe and supportive environment, provided clear and simple instructions, provided active listening and positive encouragement, provided redirection as needed, and maintained Q 15min safety checks. Response : Received patient from CN @ 9827. Pt. was awoken to attend breakfast. Pt answered appropriately during 1:1. Pt HR RRR, LTCA, BS +4 quads, PERRLA, - Homans, cap refill <3 seconds, denies SI/HI/AH/VH, denies depression/anxiety, endorses good sleep, and denies any ASE r/t medications. Pt spoke in a linear, clear manner during exam. Pt in TV room with peers. No verbal/emotional outbursts at this time. Napped in afternoon. Plan : Pt. continues to require a safe and supportive environment and medication adjustments. DC plan TBD.
[2022-11-18 20:02] VITALS: BP 143/56
[2022-11-18] MEDS: olanzapine 10mg tablet PO SCH (20:26)
--- NOTE | 2022-11-18 20:50 | NUR ---
Nursing Progress Note: Problem : Problem: Pt. admitted from ER OF for 5150 for GD. Pt. presents with confusion, altered thoughts, and disorganized behavior. Client is unable to formulate a plan for food, nursing home, and clothing. Per report, dementia was ruled out by MD. Pt. has a MEDICAL HX of: TIA, CVA, HTN, gluten intolerance, elevated WBC's on admit. Interventions : Maintained a safe and supportive environment, provided clear and simple instructions, provided active listening and positive encouragement, provided redirection as needed, and maintained Q 15min safety checks. Response : Pt was in the group room at change of shift. She states she is having a good day and hoping to get home by [place] to see her family. Pt reports she slept well last night and is happy about that. Pts speech continues to be hyperverbal, talking about family traditions, breakfast routines, and history of exercise in a span of a couple of minutes. She spent the evening socializing with peers. Plan : Pt. continues to require a safe and supportive environment and medication adjustments. DC plan TBD.
[2022-11-19] MEDS: lactobacillus rhamnosus 10,000 MMU CELLS/CAPSULE PO SCH ×2 (07:28→20:02)
[2022-11-19] MEDS: carvedilol 6.25mg tablet PO SCH ×2 (07:28→20:03)
[2022-11-19] MEDS: atorvastatin 20mg tablet PO SCH (07:29)
[2022-11-19 07:30] VITALS: BP 137/60
[2022-11-19] MEDS: amLODIPine 5mg tablet PO SCH (07:30)
[2022-11-19] MEDS: lisinopril 20mg tablet PO SCH (07:30)
[2022-11-19] MEDS: aspirin 81mg tab.chew PO SCH (08:15)
--- NOTE | 2022-11-19 16:05 | NUR ---
Therapeutic group DESCRIPTION Daily therapeutic groups support [facility] crisis-recovery environment. RESPONSE Client was task-oriented, and helpful to her peers. Client at times made tangential comments about living in [place] or having a particular scarf, or her children participating in [employer]. Client is soft spoken, and not intrusive: Her comments were more (to this journalists and other writers) like she was thinking out loud. SKILL BUILDING AREA: psychosocial educationgestures of gratitude and thanks release dopamine, which allows a feeling of well-being, pleasure, accomplishment. Activity: requested by clients -- thank you banner for kitchen staff. Discussion of supportive (but not problem solving) peer conversation using the V-validation, A-acknowledgement, R-refer model, with a handout. INTERVENTION Therapeutic communication, peer support, validation by peers, coping skills and psychosocial education. Secondarily: intellectual and physical activity, peer, and staff companionship, alleviating and discouraging isolation. TREATMENT Until stable, client requires time in a safe and therapeutic environment employing multidisciplinary treatments, including therapeutic groups.
--- NOTE | 2022-11-19 17:29 | NUR ---
Nursing Progress Note: Problem : Problem: Pt. admitted from ER OF for 5150 for GD. Pt. presents with confusion, altered thoughts, and disorganized behavior. Client is unable to formulate a plan for food, [place] [facility], and clothing. Per report, dementia was ruled out by MD. Pt. has a MEDICAL HX of: TIA, CVA, HTN, gluten intolerance, elevated WBC's on admit. Interventions : Maintained a safe and supportive environment, provided clear and simple instructions, provided active listening and positive encouragement, provided redirection as needed, and maintained Q 15min safety checks. Response : Received patient awake in bedroom at start of shift. Pt answered appropriately during 1:1. Pt HR RRR, LTCA, BS +4 quads, PERRLA, - homans, cap refill <3 seconds, denies SI/HI/AH/VH, denies depression/anxiety, endorses good sleep, and denies any ASE r/t medications. Pt reports last BM 11/18/2022. Pt spoke in a linear, clear manner during exam. Pt in TV room with peers. No verbal/emotional outbursts at this time. Napped in afternoon. Plan : Pt. continues to require a safe and supportive environment and medication adjustments. DC plan TBD.
[2022-11-19 19:25] VITALS: BP 132/64
[2022-11-19] MEDS: olanzapine 10mg tablet PO SCH (20:02)
--- NOTE | 2022-11-19 20:56 | NUR ---
Nursing Progress Note: Problem : Problem: Pt. admitted from ER OF for 5150 for GD. Pt. presents with confusion, altered thoughts, and disorganized behavior. Client is unable to formulate a plan for food, prison, and clothing. Per report, dementia was ruled out by MD. Pt. has a MEDICAL HX of: TIA, CVA, HTN, gluten intolerance, elevated WBC's on admit. Interventions : Maintained a safe and supportive environment, provided clear and simple instructions, provided active listening and positive encouragement, provided redirection as needed, and maintained Q 15min safety checks. Response : Pt was in her room socializing with roommate at change of shift. Pt is in a pleasant mood, stating she had a good day today. Pt states 'Im in the mood that I love everyone today." Pt spoke with her son on the phone tonight and states she was very happy that he was able to get through to talk to her. Pt is hyperverbal, talking about her "excellent health" and how active she is at home and how well she has been sleeping. Pt took HS meds, had snacks with peers and went to bed. Plan : Pt. continues to require a safe and supportive environment and medication adjustments. DC plan TBD.
[2022-11-20 07:32] VITALS: BP 109/61
[2022-11-20] MEDS: aspirin 81mg tab.chew PO SCH (07:49)
[2022-11-20] MEDS: carvedilol 6.25mg tablet PO SCH ×2 (07:49→20:35)
[2022-11-20] MEDS: amLODIPine 5mg tablet PO SCH (07:51)
[2022-11-20] MEDS: lisinopril 20mg tablet PO SCH (07:52)
[2022-11-20] MEDS: lactobacillus rhamnosus 10,000 MMU CELLS/CAPSULE PO SCH ×2 (07:52→20:35)
[2022-11-20] MEDS: OLANZapine 2.5MG tablet PO SCH (07:54)
[2022-11-20] MEDS: atorvastatin 20mg tablet PO SCH (07:54)
--- NOTE | 2022-11-20 16:04 | NUR ---
Threat of Lawsuit: Pts son calling the hospital demanding to talk with the MARKING ROOM SUPERVISOR and threatening a lawsuit. Pt demanding to have the provider call him daily? He calls to speak with his mother and when asked for his number to give to the provider, he states "Jackie already given it to you 4 times, look it up yourself."
--- NOTE | 2022-11-20 17:29 | NUR ---
Nursing Progress Note: Problem : Problem: Pt. admitted from ER OF for 5150 for GD. Pt. presents with confusion, altered thoughts, and disorganized behavior. Client is unable to formulate a plan for food, [place] [facility], and clothing. Per report, dementia was ruled out by MD. Pt. has a MEDICAL HX of: TIA, CVA, HTN, gluten intolerance, elevated WBC's on admit. Interventions : Maintained a safe and supportive environment, provided clear and simple instructions, provided active listening and positive encouragement, provided redirection as needed, and maintained Q 15min safety checks. Response : Received patient awake in bedroom at shift change. Patient is cheerful and ready to get the morning going. She took all morning medications in the community room. Pt. spends most of her time in the community room with her roommate and peers. She is observed helping others and interacting appropriately. She attended snack and group today. When engaging in conversations, pt. tends to go on tangents and mentions having a home in the [place]. Pt. is currently in her room speaking to son on the phone. Plan : Pt. continues to require a safe and supportive environment and medication adjustments. DC plan TBD.
[2022-11-20 19:00] VITALS: BP 132/66
[2022-11-20] MEDS: olanzapine 10mg tablet PO SCH (20:35)
--- NOTE | 2022-11-21 05:05 | NUR ---
Nursing Progress Note: Problem : Problem: Pt. admitted from ER OF for 5150 for GD. Pt. presents with confusion, altered thoughts, and disorganized behavior. Client is unable to formulate a plan for food, skilled nursing, and clothing. Per report, dementia was ruled out by MD. Pt. has a MEDICAL HX of: TIA, CVA, HTN, gluten intolerance, elevated WBC's on admit. Interventions : Maintained a safe and supportive environment, provided clear and simple instructions, provided active listening and positive encouragement, provided redirection as needed, and maintained Q 15min safety checks. Response : Patient was found socializing with roommate at beginning of shift. Patient was observed moving furniture in room and telling roommate stories about her son and the current family drama. Patient stayed in room until patient started to line up for snack. Patient came out of room and was seen taking to other patients in the hallway until eventually going into community room to eat snack. Patient stayed in community room until it closed talking to other patients. Patient appeared upset while talking to other patients about her niece who has gone missing and no one has heard from in months. Patient was redirected by nurse giving night medications which patient took with out issue. Patient was found later sitting on roommates bed and had to be remained to stay in her own area. Plan : Pt. continues to require a safe and supportive environment and medication adjustments. DC plan TBD.
[2022-11-21] MEDS: aspirin 81mg tab.chew PO SCH (07:45)
[2022-11-21] MEDS: atorvastatin 20mg tablet PO SCH (07:46)
[2022-11-21] MEDS: lactobacillus rhamnosus 10,000 MMU CELLS/CAPSULE PO SCH ×2 (07:46→20:17)
[2022-11-21] MEDS: lisinopril 20mg tablet PO SCH (07:47)
[2022-11-21] MEDS: OLANZapine 2.5MG tablet PO SCH (07:47)
[2022-11-21] MEDS: amLODIPine 5mg tablet PO SCH (07:48)
[2022-11-21] MEDS: carvedilol 6.25mg tablet PO SCH ×2 (07:48→20:17)
[2022-11-21 08:00] VITALS: BP 135/69
--- NOTE | 2022-11-21 09:12 | NUR ---
Reassessment: Pt continues with improved PO intake, documented with average 76% PO intake since last RD assessment (11/18) meeting estimated nutrient needs. LBM 11/20. No further nutrition intervention implemented at this time. Will continue to follow. Recommendations: 1. Continue gluten free diet; encourage PO 2. Smoothie WB, shake WL 3. Bowel care per rx 4. Weekly scaled wts Addendum: 11/21/22 at [address] Amended: Links added.
--- NOTE | 2022-11-21 14:31 | NUR ---
CASE MANAGEMENT Pt. will discharge back to her son's house tomorrow afternoon 11/22/2022. Pt's son Yogesh [phone] will pick her up tomorrow afternoon. Yeni Nunez LCSW
--- NOTE | 2022-11-21 17:23 | NUR ---
Nursing Progress Note: Problem : Problem: Pt. admitted from ER OF for 5150 for GD. Pt. presents with confusion, altered thoughts, and disorganized behavior. Client is unable to formulate a plan for food, penitentiary, and clothing. Per report, dementia was ruled out by MD. Pt. has a MEDICAL HX of: TIA, CVA, HTN, gluten intolerance, elevated WBC's on admit. Interventions : Maintained a safe and supportive environment, provided clear and simple instructions, provided active listening and positive encouragement, provided redirection as needed, and maintained Q 15min safety checks. Response : Received patient awake in bedroom at shift change. Pt. is cheerful and in great spirits. She denies SI and HI. Continues to have tangential conversations. Took morning medications w/o any problems. Slight edema to bilateral calves and ankles. Encouraged pt. to elevate legs. Pt. is seen interacting appropriately with peers throughout the facility. Pt. attended the [facility] [place] snack and group w/peers. Pt. ate lunch with peers in the community room. Attended afternoon group. She is in room interacting with staff and roommate. She is observed greeting and engaging w/others appropriately throughout the day. Plan : Pt. continues to require a safe and supportive environment and medication adjustments. DC plan TBD.
[2022-11-21 19:00] VITALS: BP 130/63
[2022-11-21] MEDS: olanzapine 10mg tablet PO SCH (20:17)
--- NOTE | 2022-11-22 05:17 | NUR ---
Nursing Progress Note: Problem : Problem: Pt. admitted from ER OF for 5150 for GD. Pt. presents with confusion, altered thoughts, and disorganized behavior. Client is unable to formulate a plan for food, custodial, and clothing. Per report, dementia was ruled out by MD. Pt. has a MEDICAL HX of: TIA, CVA, HTN, gluten intolerance, elevated WBC's on admit. Interventions : Maintained a safe and supportive environment, provided clear and simple instructions, provided active listening and positive encouragement, provided redirection as needed, and maintained Q 15min safety checks. Response : Patient was found sitting in community room socializing with other patients. Patient was observed having unorganized speech. Patient kept going on tangents and was unable to keep a straight thought before changing directions. Patient continues to talk about her son coming to get her tomorrow. Patient is glad she will be able to go home and help her son. She has been worried about him taking care of things by himself. Patent took all night medications without issue except for patient continuing to spit pills in to cup but eventually swallowed them. Patient continued to stay in community luann until eventually going to bed. Plan : Pt. continues to require a safe and supportive environment and medication adjustments. DC plan TBD.
[2022-11-22] MEDS: aspirin 81mg tab.chew PO SCH (07:21)
[2022-11-22] MEDS: lisinopril 20mg tablet PO SCH (07:22)
[2022-11-22] MEDS: atorvastatin 20mg tablet PO SCH (07:23)
[2022-11-22] MEDS: amLODIPine 5mg tablet PO SCH (07:24)
[2022-11-22] MEDS: OLANZapine 2.5MG tablet PO SCH (07:25)
[2022-11-22] MEDS: carvedilol 6.25mg tablet PO SCH (07:25)
[2022-11-22] MEDS: lactobacillus rhamnosus 10,000 MMU CELLS/CAPSULE PO SCH (07:28)
[2022-11-22 08:07] VITALS: BP 120/63
[2022-11-22] MEDS ORDERED: LISI20TA28 PO (12:58)
[2022-11-22] MEDS ORDERED: OLAN2.5T28 PO (12:59)
[2022-11-22] MEDS ORDERED: OLAN10TA73 PO (12:59)
--- NOTE | 2022-11-22 17:19 | NUR ---
DISCHARGE NOTE patient discharge from unit at 1550. Patient left with all of her belongings. Went over discharge paperwork. patient was alert and oriented.
== END 2022-11-22 16:15 | disposition home or self-care (01) | DRG 885 ==
LOC: ER 12:35 → ED HOLD 11-08 19:00 → ADULT MH 11-08 22:45
PROVIDERS: ADMIT Psychiatry & Neurology Psychiatry; ATTEND Psychiatry & Neurology Psychiatry
DX: F23 Brief psychotic disorder (principal); F05 Delirium due to known physiological condition; N39.0 Urinary tract infection, site not specified; R47.01 Aphasia; Z20.822 Contact with and (suspected) exposure to COVID-19; F39 Unspecified mood [affective] disorder; E78.5 Hyperlipidemia, unspecified; F07.89 Other personality and behavioral disorders due to known physiological condition; I10 Essential (primary) hypertension; R00.0 Tachycardia, unspecified; K90.0 Celiac disease; Z79.82 Long term (current) use of aspirin; Z79.899 Other long term (current) drug therapy; Z86.73 Personal history of transient ischemic attack (TIA), and cerebral infarction without residual deficits; Z87.891 Personal history of nicotine dependence; Z91.018 Allergy to other foods
CPT/HCPCS: 36415; 80053; 80305; 80320; 81001; 83735; 84443; 85025; 85610; 87088; 87811; 99285; A4353; J1630; J2060; J3490

== ENCOUNTER 2022-12-05 16:50 | Emergency (ER) | payer MEDICARE, MEDICAID ==
[~2022-12-05] VITALS: Ht 157.5 cm; Wt 45.5 kg
[~2022-12-05 16:50] MED LIST changes: +AMLO-139 PO; -ASPI-1071 PO; +ASPI-1265 PO; -ATI1T PO; +ATOR40TA PO; -ATOR40TA71 PO; +LISI20TA28 PO; -NOR5T PO; +OLAN10TA73 PO; +OLAN2.5T28 PO; -OLAN5TAB29 PO; -TRAZ-251 PO
[2022-12-05] MEDS ORDERED: LORazepam 2 mg/ml vial IM ONE (19:25)
[2022-12-05] MEDS ORDERED: OLANZapine **IM** 10 mg inj. IM ONE (19:25)
[2022-12-05 20:56] LABS: COLOR,URINE STRAW (Yellow); GLUCOSE, URINE NEGATIVE (Neg); KETONES,URINE TRACE mg/dl (Neg); LEUKOCYTE ESTERASE ,URINE MODERATE (Neg); NITRITES, URINE NEGATIVE (Neg); OCCULT BLOOD,URINE TRACE-INTACT (Neg); PH,URINE 5.5 (4.8-8.0); PROTEIN,URINE NEGATIVE (Neg); UROBILINOGEN,URINE 0.2 E.U/dL (0.2-1.0)
[2022-12-05 21:08] LABS: UA COLLECTION TYPE CLN CATCH MIDSTREAM
[2022-12-05 21:10] LABS: URINE AMPHETAMINE SCREEN NEGATIVE (Neg); URINE BARBITUATE SCREEN NEGATIVE (Neg); URINE BENZODIAZEPINES SCREEN NEGATIVE (Neg); URINE CANNABINOID SCREEN NEGATIVE (Neg); URINE COCAINE SCREEN NEGATIVE (Neg); URINE METHADONE SCREEN NEGATIVE (Neg); URINE OPIATE SCREEN NEGATIVE (Neg); URINE PHENCYCLIDINE SCREEN NEGATIVE (Neg)
[2022-12-05 21:11] LABS: BACTERIA,URINE 1+ /HPF (Neg); SQUAMOUS EPITHELIAL CELL,UR FEW /LPF (FEW)
[2022-12-05 21:12] LABS: CLARITY,URINE SLIGHTLY CLOUDY (Clear); MUCUS STRANDS FEW /LPF (Neg); TRANSITIONAL EPI CELLS,URINE FEW /HPF
[2022-12-05] MEDS ORDERED: diphenhydrAMINE 50 mg/ml inj IM STA (23:50)
[2022-12-05] MEDS ORDERED: LORazepam 2 mg/ml vial IM STA (23:50)
--- NOTE | 2022-12-05 23:51 | NUR ---
pt has not stopped talking since arrival onto shift. She will open her door and harass staff. Her talk is clear but pressured speech and rambling of nonsence. She cannot keep still. She is in constant motion. Will not follow directions. informed. Meds ordered.
[2022-12-06 03:26] LABS: BASOPHILS % (AUTO) 0.2 % (0-1); EOSINOPHILS # (AUTO) 0.2 X10'3 (0-0.9); EOSINOPHILS % (AUTO) 2.5 % (0-6); HEMATOCRIT 29.7 % (35.0-45.0); LYMPHOCYTES # (AUTO) 2.2 X10'3 (1.1-4.8); LYMPHOCYTES % (AUTO) 32.9 % (21-51); MEAN CORPUSCULAR HEMOGLOBIN 28.2 PG (27.0-31.0); MEAN CORPUSCULAR HGB CONC 33.5 g/dL (33.0-36.5); MEAN CORPUSCULAR VOLUME 84.1 FL (78-98); MONOCYTES # (AUTO) 0.7 X10'3 (0-0.9); NEUTROPHILS # (AUTO) 3.7 X10'3 (1.8-7.7); NEUTROPHILS % (AUTO) 54.4 % (42-75); PLATELET COUNT 333 X10'3 (140-440); RED BLOOD COUNT 3.54 X10'6 (4.20-5.60); RED CELL DISTRIBUTION WIDTH 14.7 % (11.5-14.5); WHITE BLOOD COUNT 6.8 X10'3 (4.5-11.0)
[2022-12-06 03:48] LABS: ALANINE AMINOTRANSFERASE 15 U/L (12-78); ALBUMIN 3.2 G/DL (3.4-5.0); ALBUMIN/GLOBULIN RATIO 1.1 (1.1-1.5); ALKALINE PHOSPHATASE 86 IU/L (46-116); ANION GAP 8 (8-16); ASPARTATE AMINO TRANSFERASE 23 U/L (10-37); BILIRUBIN,TOTAL 0.7 MG/DL (0.1-1.0); BLOOD UREA NITROGEN 23 MG/DL (7-18); BUN/CREATININE RATIO 25.3 (6.6-38.0); CALCIUM 8.4 MG/DL (8.5-10.1); CHLORIDE 105 MMOL/L (99-107); CREATININE 0.91 MG/DL (0.40-0.90); ETHANOL < 0.010 GM/DL (0.0-0.010); GLUCOSE 81 MG/DL (70-104); POTASSIUM 3.8 MMOL/L (3.5-5.1); SODIUM 136 MMOL/L (135-145); TOTAL CARBON DIOXIDE 22.8 MMOL/L (24-32); TOTAL PROTEIN 6.2 G/DL (6.4-8.2); eGFR 60 ML/MIN
[2022-12-06] MEDS ORDERED: cephalexin 250mg capsule PO ONE (04:27)
--- NOTE | 2022-12-06 06:51 | NUR ---
giuliana sent pt packet to [facility]
--- NOTE | 2022-12-06 08:22 | NUR ---
pt brought over by previous RN, pt shown to her room, pt then used the restroom.
--- NOTE | 2022-12-06 08:30 | NUR ---
Pt. was brought over from the main ER accompainied by Tech. She is sitting up in bed eating breakfast at this time.
--- NOTE | 2022-12-06 09:00 | NUR ---
pt belongings inventoried, pt valuables sent to safe, 3 bags of belongings placed in corresponding locker to room number.
--- NOTE | 2022-12-06 10:00 | NUR ---
Pt's son called: Yogesh . Per son, pt. has been taking her ordered medications, however she sometimes gets the morning and evening doses mixed up.
[2022-12-06] MEDS ORDERED: LISI20TA28 PO (10:16)
[2022-12-06] MEDS ORDERED: ASPI-1265 PO (10:16)
[2022-12-06] MEDS ORDERED: ATOR40TA7 PO (10:16)
[2022-12-06] MEDS ORDERED: OLAN2.5T3 PO (10:16)
[2022-12-06] MEDS ORDERED: OLAN10TA3 PO (10:16)
[2022-12-06] MEDS ORDERED: AMLO10TA48 PO (10:16)
[2022-12-06] MEDS ORDERED: CARV-49 PO (10:16)
--- NOTE | 2022-12-06 10:30 | NUR ---
Pt. is sleeping in bed at this time, HOB elevated, rr are even and unlabored.
--- NOTE | 2022-12-06 11:03 | NUR ---
[facility] is at bedside talking with pt. at this time.
[2022-12-06] MEDS ORDERED: atorvastatin 20mg tablet PO SCH ×2 (11:40→12:25)
[2022-12-06] MEDS ORDERED: amLODIPine 5mg tablet PO SCH (11:40)
[2022-12-06] MEDS ORDERED: aspirin 81mg tab.chew PO SCH (11:40)
[2022-12-06] MEDS ORDERED: carvedilol 6.25mg tablet PO SCH (11:41)
[2022-12-06] MEDS ORDERED: lisinopril 20mg tablet PO SCH (11:41)
[2022-12-06] MEDS ORDERED: OLANZapine 2.5MG tablet PO SCH (11:41)
--- NOTE | 2022-12-06 12:27 | NUR ---
Pt. is sitting up in bed at this time awaiting lunch.
--- NOTE | 2022-12-06 13:23 | NUR ---
Per [facility], pt. will be discharged as soon as her son can pick her up. He will call when he's on his way.
--- NOTE | 2022-12-06 14:27 | NUR ---
Pt. is sleeping at this time, HOB elevated, rise and fall of chest noted.
--- NOTE | 2022-12-06 16:10 | NUR ---
tech gave belongings back to the pt, pt changed into normal clothes, pt belongings placed in safe were given back to pt.
--- NOTE | 2022-12-06 16:20 | NUR ---
Pt. discharged from the unit accompanied by her son and Tech. Her son will be driving her home. Pt's belongings were returned to her and this magazine writer reviewed discharge instructions and pt. reported understanding. Pt. was provided with mental health resources.
[2022-12-06 17:14] VITALS: BP 110/68
[2022-12-06] MEDS ORDERED: olanzapine 10mg tablet PO SCH (21:00)
== END 2022-12-06 17:16 | disposition home or self-care (01) ==
LOC: ER 16:52
DX: F23 Brief psychotic disorder (principal); Z20.822 Contact with and (suspected) exposure to COVID-19; N39.0 Urinary tract infection, site not specified; Z88.0 Allergy status to penicillin; I51.9 Heart disease, unspecified; Z91.010 Allergy to peanuts
CPT/HCPCS: 36415; 80053; 80305; 80320; 81001; 84443; 85025; 87811; 96372; 99285; J1200; J2060

== ENCOUNTER 2023-01-16 08:14 | Emergency (ER) | payer MEDICARE, MEDICAID ==
[~2023-01-16] VITALS: Ht 162.6 cm; Wt 50.0 kg
[~2023-01-16 08:14] MED LIST changes: -AMLO-139 PO; +AMLO10TA48 PO; -ATOR40TA PO; +ATOR40TA7 PO; +CARV-49 PO; +OLAN10TA3 PO; -OLAN10TA73 PO; -OLAN2.5T28 PO; +OLAN2.5T3 PO
[2023-01-16] MEDS ORDERED: OLANZapine **IM** 10 mg inj. IM ONE (08:25)
[2023-01-16] MEDS ORDERED: LORazepam 2 mg/ml vial IM ONE (08:25)
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
[2023-01-16 10:40] LABS: BASOPHILS % (AUTO) 0.2 % (0-1); EOSINOPHILS % (AUTO) 0.2 % (0-6); HEMATOCRIT 34.6 % (35.0-45.0); HEMOGLOBIN 11.6 g/dl (12.0-16.0); LYMPHOCYTES # (AUTO) 1.2 X10'3 (1.1-4.8); LYMPHOCYTES % (AUTO) 11.5 % (21-51); MEAN CORPUSCULAR HGB CONC 33.6 g/dL (33.0-36.5); MEAN CORPUSCULAR VOLUME 83.5 FL (78-98); MEAN PLATELET VOLUME 7.7 FL (7.4-10.4); MONOCYTES # (AUTO) 0.6 X10'3 (0-0.9); MONOCYTES % (AUTO) 5.6 % (2-12); NEUTROPHILS # (AUTO) 8.3 X10'3 (1.8-7.7); NEUTROPHILS % (AUTO) 82.5 % (42-75); PLATELET COUNT 365 X10'3 (140-440); RED BLOOD COUNT 4.14 X10'6 (4.20-5.60)
[2023-01-16 10:55] LABS: ALANINE AMINOTRANSFERASE 14 U/L (12-78); ALBUMIN 3.7 G/DL (3.4-5.0); ALBUMIN/GLOBULIN RATIO 1.1 (1.1-1.5); ALKALINE PHOSPHATASE 110 IU/L (46-116); ANION GAP 9 (8-16); ASPARTATE AMINO TRANSFERASE 13 U/L (10-37); BILIRUBIN,TOTAL 0.9 MG/DL (0.1-1.0); BLOOD UREA NITROGEN 20 MG/DL (7-18); BUN/CREATININE RATIO 17.2 (6.6-38.0); CALCIUM 9.1 MG/DL (8.5-10.1); CHLORIDE 107 MMOL/L (99-107); CREATININE 1.16 MG/DL (0.40-0.90); GLUCOSE 112 MG/DL (70-104); POTASSIUM 4.4 MMOL/L (3.5-5.1); SODIUM 141 MMOL/L (135-145); TOTAL CARBON DIOXIDE 24.9 MMOL/L (24-32); TOTAL PROTEIN 7.2 G/DL (6.4-8.2); eGFR 46 ML/MIN
[2023-01-16 11:02] LABS: ETHANOL < 0.010 GM/DL (0.0-0.010)
--- NOTE | 2023-01-16 15:20 | NUR ---
REPORT TO DESIRAE CHANDLER ON ER OVERFLOW. PATIENT IS TAKEN TO ER OVERFLOW FOR CONTINUED CARE.
--- NOTE | 2023-01-16 15:28 | NUR ---
Pt transferred from ER main bed 9 to ER overflow bed 25 in w/c accompanied by tech. Pt ambulated to the bathroom. A hat was placed on the toilet to obtain UA.
--- NOTE | 2023-01-16 15:33 | NUR ---
UA collected and sent to lab.
[2023-01-16 15:56] LABS: URINE AMPHETAMINE SCREEN NEGATIVE (Neg); URINE BARBITUATE SCREEN NEGATIVE (Neg); URINE BENZODIAZEPINES SCREEN NEGATIVE (Neg); URINE CANNABINOID SCREEN NEGATIVE (Neg); URINE COCAINE SCREEN NEGATIVE (Neg); URINE METHADONE SCREEN NEGATIVE (Neg); URINE OPIATE SCREEN NEGATIVE (Neg); URINE PHENCYCLIDINE SCREEN NEGATIVE (Neg)
--- NOTE | 2023-01-16 15:57 | NUR ---
Pt changed into green scrubs.
[2023-01-16 16:29] LABS: CLARITY,URINE CLOUDY (Clear); COLOR,URINE YELLOW (Yellow); GLUCOSE, URINE NEGATIVE (Neg); KETONES,URINE 15 mg/dl (Neg); LEUKOCYTE ESTERASE ,URINE LARGE (Neg); NITRITES, URINE NEGATIVE (Neg); OCCULT BLOOD,URINE TRACE-INTACT (Neg); PROTEIN,URINE TRACE mg/dl (Neg); UROBILINOGEN,URINE 0.2 E.U/dL (0.2-1.0)
[2023-01-16 16:31] LABS: UA COLLECTION TYPE CLN CATCH MIDSTREAM
[2023-01-16 16:38] LABS: BACTERIA,URINE 3+ /HPF (Neg); MUCUS STRANDS FEW /LPF (Neg); RBC,URINE 0-2 /HPF (0-2); SQUAMOUS EPITHELIAL CELL,UR FEW /LPF (FEW); WBC,URINE TNTC /HPF (0-4)
[2023-01-16] MEDS ORDERED: FOSFOMYCIN TROMETHAMINE 3 GM PACKET PO ONE (16:50)
[2023-01-16] MEDS ORDERED: amox tr/potassium clavulanate 875/125mg TAB PO ONE (16:50)
--- NOTE | 2023-01-16 16:50 | NUR ---
UA results back: Leukocyte esterase: Large H, urine WBC tntcH, bacteria 3+, ketones 15H, culture indicated. Notified
--- NOTE | 2023-01-16 17:11 | NUR ---
Pt has new orders for PO ABX Augmentin 875-125 mg once then PO BID and fosfomycin tromethamine once.
--- NOTE | 2023-01-16 17:41 | NUR ---
Pt was cooperative with taking her ABX Augmentin and the fosfomycin. Pt is aware that she had a problem with a UTI before and may not have gotten rid of it. Pt realizes she needs the medication.
[2023-01-16] MEDS: olanzapine 10mg tablet PO ONE ×2 (22:54→23:09)
[2023-01-16] MEDS: olanzapine 10mg tablet PO SCH (22:54)
--- NOTE | 2023-01-17 06:30 | NUR ---
Received pt. sleeping in bed at the beginning of the shift, rr are even and unlabored.
--- NOTE | 2023-01-17 08:33 | NUR ---
Pt. is sitting up eating breakfast at this time, she presents as calm and cooperative with care.
[2023-01-17] MEDS: aspirin 81mg tab.chew PO SCH (08:35)
[2023-01-17] MEDS: atorvastatin 20mg tablet PO SCH (08:35)
[2023-01-17] MEDS: OLANZapine 2.5MG tablet PO SCH (08:36)
[2023-01-17] MEDS: amLODIPine 5mg tablet PO SCH (08:36)
[2023-01-17] MEDS: amox tr/potassium clavulanate 875/125mg TAB PO SCH ×2 (08:36→17:53)
[2023-01-17] MEDS: lisinopril 20mg tablet PO SCH (08:36)
--- NOTE | 2023-01-17 09:00 | NUR ---
1:1 was completed at bedside, pt. continues to be slightly disoriented, A&O x3, not to reason here. Pt. states, "I'm here for a vacation because I was upset with my son." She also continues to exhibit disorganization and a tangental thought process. Pt. talks at length with hyperverbal speech about various family membrs, other people she knows, and life events. She requires redirection back on topic to complete assessment. Pt. is currently being treated for a UTI, she exhibits some urniary frequency.
--- NOTE | 2023-01-17 10:16 | NUR ---
Pt. is sleeping at this time, HOB elevated, and rise and fall of chest noted.
--- NOTE | 2023-01-17 12:19 | NUR ---
Pt. is up eating lunch at this time she remains pleasant. This feature writer spoke to pt's son via telephone with her consent who called to check on his mother.
--- NOTE | 2023-01-17 14:45 | NUR ---
Pt. is sitting up in bed quietly at this time.
--- NOTE | 2023-01-17 16:30 | NUR ---
Pt. is sleeping at this time with head of bed elevated, rr are even and unlabored.
--- NOTE | 2023-01-17 17:44 | NUR ---
Pt. requested a snack and sitting up in bed eating at this time.
--- NOTE | 2023-01-17 18:30 | NUR ---
This patient is sleeping quietly. No distress. No hold at this time. Reported possible dementia. Awaiting social media marketing analyst.
--- NOTE | 2023-01-17 19:17 | NUR ---
Patient is laying in bed. No distress.
--- NOTE | 2023-01-17 20:20 | NUR ---
Patient is quiet, she sleeps off and on. In view from nurses station.
[2023-01-17] MEDS: olanzapine 10mg tablet PO SCH (21:11)
--- NOTE | 2023-01-17 21:13 | NUR ---
Patient awoke and took nightime medications. She then returned to sleep.
--- NOTE | 2023-01-17 21:15 | NUR ---
Patient is medication compliant and cooperative.
--- NOTE | 2023-01-17 22:31 | NUR ---
Patient is sleepilng, no distress. In view from the nurses station.
--- NOTE | 2023-01-17 23:21 | NUR ---
Patient is sleeping quietly in a supine position.
--- NOTE | 2023-01-18 00:32 | NUR ---
Patient is sleeping on her left side. No distress.
--- NOTE | 2023-01-18 02:39 | NUR ---
Patient is sleeping quietly on her left side. No distress noted.
--- NOTE | 2023-01-18 04:35 | NUR ---
Patient sleps quietly.
--- NOTE | 2023-01-18 06:30 | NUR ---
Received pt. awake laying in bed at the beginning of the shift, no s/s of distress were noted.
[2023-01-18] MEDS: lisinopril 20mg tablet PO SCH (08:18)
[2023-01-18] MEDS: aspirin 81mg tab.chew PO SCH (08:18)
[2023-01-18] MEDS: atorvastatin 20mg tablet PO SCH (08:18)
[2023-01-18] MEDS: OLANZapine 2.5MG tablet PO SCH (08:18)
[2023-01-18] MEDS: amox tr/potassium clavulanate 875/125mg TAB PO SCH ×2 (08:18→18:00)
[2023-01-18] MEDS: amLODIPine 5mg tablet PO SCH (08:19)
--- NOTE | 2023-01-18 08:45 | NUR ---
1:1 was completed at bedside with pt., pt. remains pleasant and cooperative. She denies all MH s/s and states, "I love my life!" Pt. continues to present with some disorganization and has difficulty finding words at times. Her thought process continues to be tangental and she again talks at length about multiple topics and family members. Pt. is difficult to interrupt. She admits that she is worried about her son who was recently diagnosed with a heart condition. Pt. reports the previous of her younger son in 2019, and states, "That was around the may, and the fourth of May is coming up soon."
--- NOTE | 2023-01-18 10:31 | NUR ---
Pt. is laying in bed sleeping at this time, rr are even and unlabored.
--- NOTE | 2023-01-18 12:22 | NUR ---
Pt. is sitting up eating lunch at this time.
--- NOTE | 2023-01-18 14:32 | NUR ---
Pt. is up at the nurse's station talking to staff at this time.
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
--- NOTE | 2023-01-18 16:30 | NUR ---
Pt. is sleeping at this time, no s/s of distress noted. Remains in LOS of the nurse's station.
--- NOTE | 2023-01-18 18:06 | NUR ---
Pt. is up eating dinner at this time.
--- NOTE | 2023-01-18 19:40 | NUR ---
pt resting in bed with eyes closed
[2023-01-18] MEDS: olanzapine 10mg tablet PO SCH (21:12)
--- NOTE | 2023-01-19 06:40 | NUR ---
Pt. ambulated over from the main ER back to overflow accompanied by staff. She is sitting up awaiting breakfast at this time.
--- NOTE | 2023-01-19 06:45 | NUR ---
PATIENT AMBULATORY FROM THE MAIN ER TO OVERFLOW ACCOMPANIED BY STAFF. PATIENT IS AWAKE AND ALERT, SITTING IN HER ROOM AT THIS TIME. WILL CONTINUE TO MONITOR.
[2023-01-19] MEDS: OLANZapine 2.5MG tablet PO SCH (08:13)
[2023-01-19] MEDS: amLODIPine 5mg tablet PO SCH (08:14)
[2023-01-19] MEDS: aspirin 81mg tab.chew PO SCH (08:14)
[2023-01-19] MEDS: atorvastatin 20mg tablet PO SCH (08:14)
[2023-01-19] MEDS: lisinopril 20mg tablet PO SCH (08:15)
[2023-01-19] MEDS: amox tr/potassium clavulanate 875/125mg TAB PO SCH ×2 (08:15→17:54)
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
--- NOTE | 2023-01-19 09:00 | NUR ---
Pt. initially refused her medications this morning and presents with some increased confusion and restlessness. She continues to present with disorganization and a tangential thought process. This display card writer sat with pt. listening to her talk and established rapport, pt. was provided education regarding her medications. Pt. finally did consent to taking them, however stated, "There's a mix up with my medications. It's not you guys here at the hospital, it's a corporate problem." Pt. continues to have difficulty finding the right words or expressing her thoughts in a manner that makes sense. Will continue to monitor pt. closely.
--- NOTE | 2023-01-19 10:30 | NUR ---
PATIENT OBSERVED WALKING AROUND THE UNIT, TALKING WITH STAFF AND OTHER PEERS. SHE CONTINUES TO PRESENT WITH A TANGENTAL THOUGHT PROCESS. PATIENT REDIRECTED AND REORIENTED REPEATEDLY. WILL CONTINUE TO MONITOR.
--- NOTE | 2023-01-19 11:56 | NUR ---
PATIENT IS SLEEPING IN HER ROOM AT THIS TIME. RESPIRATIONS EVEN, UNLABORED. NO S/S OF DISTRESS. WILL CONTINUE TO MONITOR.
--- NOTE | 2023-01-19 12:14 | NUR ---
PATIENT IS SITTING UP IN HER ROOM EATING LUNCH AT THIS TIME. NOTED TALKING WITH THE TECH. SHE IS ALERT YET DISORGANIZED. ABLE TO BE REDIRECTED.
--- NOTE | 2023-01-19 14:24 | NUR ---
PATIENT IS OBSERVED SLEEPING IN HER ROOM WITH NO S/S OF DISTRESS. EQUAL RISE AND FALL OF CHEST. WILL CONTINUE TO MONITOR.
--- NOTE | 2023-01-19 15:00 | NUR ---
Pt. is pacing restlessly at this time and talking aloud with pressured speech in a tangental manner to any staff present. She appears to be exhibiting hypomanic behaviors, will continue to monitor closely. Addendum: 01/19/23 at 1607 by LEONARD Pt. is able to be redirected and denies the need for an anxiolytic.
--- NOTE | 2023-01-19 16:27 | NUR ---
PATIENT APPROACHED THIS NATURAL RESOURCES ENGINEER ENDORSING HEADACHE PAIN AND REQUESTING PRN TYLENOL. THIS WAS RELAYED TO THE MD. PATIENT NOTED TALKING OUTLOUD TO ANYONE LISTENING WITH A DISORGANIZED THOUGHT PROCESS.
[2023-01-19] MEDS ORDERED: acetaminophen 325mg tablet PO ONE (16:30)
--- NOTE | 2023-01-19 17:57 | NUR ---
Pt. is sitting up eating dinner at this time.
--- NOTE | 2023-01-19 18:00 | NUR ---
PATIENT IS OBSERVED SITTING IN HER ROOM EATING DINNER AT THIS TIME. NO S/S OF DISTRESS. PATIENT WAS HESITANT TO TAKE SCHEDULED MEDICATION, YET WAS RECEPTIVE ONCE GIVEN YOGURT. WILL CONTINUE TO MONITOR.
--- NOTE | 2023-01-19 18:01 | NUR ---
This television writer agrees with Melissa Ziegler LPN's assessments and documentation.
[2023-01-19] MEDS: olanzapine 10mg tablet PO SCH (20:46)
--- NOTE | 2023-01-20 04:44 | NUR ---
pt sitting up in bed talking to herself non stop since 0200. pt random rambeling.
[2023-01-20] MEDS ORDERED: haloperidol lactate 5mg/ml inj ONE (06:54)
[2023-01-20] MEDS ORDERED: LORazepam 2 mg/ml vial ONE (06:56)
--- NOTE | 2023-01-20 07:05 | NUR ---
Received patient at 0625. Pt presented with rapid, loud, disorgainzed speech. Pt was pacing unit, instrusive with other patients. Pt required mulitiple redirection attempts as she was trying to leave and wouldn't return to her room. Other patient's behaviors were becoming elevated. Patient refused both her scheduled and PRN medications. Received order from Kanika Barone MD for IM Ativan 1m and Haldol 5mg.
--- NOTE | 2023-01-20 07:10 | NUR ---
Administered medication with security at standby. Patient was cooperative, lying on bed without assistance. Medication was given in left deltoid. Addendum: 01/20/23 at 0933 by RUSTY Received in report patient slept approximately 2 hours.
--- NOTE | 2023-01-20 07:55 | NUR ---
Pt woke and ate her breakfast. Pt talkative, came out of her room, but was compliant with redirection back to her room.
--- NOTE | 2023-01-20 08:00 | NUR ---
Unable to administer morning medications as pt is sedated. Pt had refused her scheduled medications earlier in the shift.
--- NOTE | 2023-01-20 08:20 | NUR ---
Pt resting comfortably in low peace's position. Audible snoring noises noted. Respirations even and unlabored. Skin pink. No distress noted.
--- NOTE | 2023-01-20 08:47 | NUR ---
Patient resting comfortably, rr even and unlabored. Skin pink.
--- NOTE | 2023-01-20 10:12 | NUR ---
Patient resting comfortably, rr even and unlabored. No distress noted. Skin pink.
--- NOTE | 2023-01-20 11:12 | NUR ---
Patient resting comfortably, rr even and unlabored. Skin pink.
--- NOTE | 2023-01-20 12:12 | NUR ---
Patient resting comfortably, rr even and unlabored. Pt easily roused. Skin pink.
--- NOTE | 2023-01-20 12:40 | NUR ---
Pt awake ambulated to the bathroom, talking to herself all the way. Pt is now sitting at bedside eating her lunch, talking nonsensically to herself. Pt is remaining in her room.
[2023-01-20] MEDS: aspirin 81mg tab.chew PO SCH (13:22)
[2023-01-20] MEDS: amLODIPine 5mg tablet PO SCH (13:23)
[2023-01-20] MEDS: OLANZapine 2.5MG tablet PO SCH (13:23)
[2023-01-20] MEDS: amox tr/potassium clavulanate 875/125mg TAB PO SCH ×2 (13:23→18:41)
[2023-01-20] MEDS: lisinopril 20mg tablet PO SCH (13:23)
[2023-01-20] MEDS: atorvastatin 20mg tablet PO SCH (13:24)
--- NOTE | 2023-01-20 13:42 | NUR ---
Administered morning medications without issue. Pt' ate about 50% of her meal tray, she wanted it left at bedside. Pt is resting comfortably right now, rr even and unlabored. Skin pink.
--- NOTE | 2023-01-20 16:00 | NUR ---
Pt resting comfortably, audible snoring noises heard. Respirations even and unlabored. Skin pink.
--- NOTE | 2023-01-20 18:57 | NUR ---
The patient has been up on the unit. She is disorganized and intrussive. She is irritable and oriented only to herself. When asked why she is here she replied, "I walked in here. I was worried about my son who is in [facility]...I'm at the wrong clinic" She is unable to verbalize a plan for food, chcf or clothing. She currently accepts redirection. She appears disheveled.
[2023-01-20] MEDS: olanzapine 10mg tablet PO SCH (20:08)
--- NOTE | 2023-01-20 22:08 | NUR ---
The patient appears to be sleeping
--- NOTE | 2023-01-21 00:40 | NUR ---
The patient appears to be sleeping
--- NOTE | 2023-01-21 02:10 | NUR ---
The patient appears to be sleeping
--- NOTE | 2023-01-21 03:15 | NUR ---
The patient appears to be sleeping
--- NOTE | 2023-01-21 05:03 | NUR ---
The patient appears to be sleeping
--- NOTE | 2023-01-21 07:00 | NUR ---
Received patient sleeping comfortably at shift change. Respirations even and unlabored. Skin pink.
--- NOTE | 2023-01-21 09:00 | NUR ---
Pat wake sitting up in bed eating her meal. Pt was compliant with her medication. Pt presents tangential, however is less manic. Thoughts are disorganized. Relay Telegrapher is able to redirect patient when needed. Pt states "Wow, I slept all day yesterday." Pt declined basin bath, but was given toothbrush and toothpaste. Pt requested to talk to her son and phone was provided.
[2023-01-21] MEDS: amLODIPine 5mg tablet PO SCH (09:23)
[2023-01-21] MEDS: lisinopril 20mg tablet PO SCH (09:23)
[2023-01-21] MEDS: amox tr/potassium clavulanate 875/125mg TAB PO SCH ×2 (09:23→18:08)
[2023-01-21] MEDS: OLANZapine 2.5MG tablet PO SCH (09:23)
[2023-01-21] MEDS: atorvastatin 20mg tablet PO SCH (09:23)
[2023-01-21] MEDS: aspirin 81mg tab.chew PO SCH (09:23)
--- NOTE | 2023-01-21 11:00 | NUR ---
Pt independently ambulated to bathroom. Pt continues to remain calm states "I'm feeling better." Pt talked to her son told him "to wish her sister a Happy Birthday." Pt's thoughts are clearing.
--- NOTE | 2023-01-21 13:00 | NUR ---
Patient awake sitting on her bed. Pt ate 100% of her lunch.
--- NOTE | 2023-01-21 13:50 | NUR ---
Note brauliocecelia in EDM - 01/21/23 at 1441 by RUSTY Spoke with patient's son (Yogesh.) Explained to him that pt is clearing up, is tangential, however that is pt's baseline. Son did not have interest in picking her up and wanted to speak with SW. Called MARLENY Gardner, she will return his call.
--- NOTE | 2023-01-21 14:41 | NUR ---
Spoke with patient's son (Yogesh.) Explained to him that pt is clearing up, is tangential, however that is pt's baseline. Son did not have interest in picking her up and wanted to speak with SW. Called MARLENY Gardner, she will return his call.
--- NOTE | 2023-01-21 14:53 | NUR ---
Note brittany in ED - 01/21/23 at 1455 by RUSTY Hygiene bucket and shower supplies set up for patient in bathroom. Pt bathed herself, clean scrubs were given. Pt much calmer, still having intermittent negative comments.
--- NOTE | 2023-01-21 15:15 | NUR ---
Patient reclining in bed. No distress observed. Continue to monitor.
--- NOTE | 2023-01-21 16:01 | NUR ---
Report given to DESIRAE Castillo
--- NOTE | 2023-01-21 17:28 | NUR ---
Patient is awake in bed. No distress observed. Continue to monitor.
[2023-01-21] MEDS: olanzapine 10mg tablet PO SCH (21:05)
[2023-01-22 06:00] VITALS: BP_DIAS 64
--- NOTE | 2023-01-22 06:36 | NUR ---
Patient sleeping on right side. No distress observed. Continue to monitor.
--- NOTE | 2023-01-22 08:07 | NUR ---
Patient awake and eating breakfast. No distress observed. Continue to monitor.
[2023-01-22] MEDS: lisinopril 20mg tablet PO SCH (08:27)
[2023-01-22] MEDS: aspirin 81mg tab.chew PO SCH (08:27)
[2023-01-22] MEDS: atorvastatin 20mg tablet PO SCH (08:27)
[2023-01-22 08:28] VITALS: BP_SYST 110
[2023-01-22] MEDS: OLANZapine 2.5MG tablet PO SCH (08:28)
[2023-01-22] MEDS: amLODIPine 5mg tablet PO SCH (08:28)
--- NOTE | 2023-01-22 10:25 | NUR ---
Patient sitting up in bed speaking with her son. No distress observed. Continue to monitor.
--- NOTE | 2023-01-22 12:11 | NUR ---
Patient eating lunch. No distress observed. Continue to monitor.
--- NOTE | 2023-01-22 14:10 | NUR ---
Patient sleeping supine in bed. No distress observed. Continue to monitor.
== END 2023-01-22 16:13 | disposition home or self-care (01) ==
LOC: ER 08:15
DX: F23 Brief psychotic disorder (principal); Z20.822 Contact with and (suspected) exposure to COVID-19; Z79.899 Other long term (current) drug therapy; Z86.73 Personal history of transient ischemic attack (TIA), and cerebral infarction without residual deficits; Z79.82 Long term (current) use of aspirin
CPT/HCPCS: 36415; 80053; 80305; 80320; 81001; 85025; 87077; 87088; 87186; 87811; 96372; 99285; J2060; J3490

== ENCOUNTER 2023-01-28 13:13 | Emergency (ER) | payer MEDICARE, MEDICAID ==
[~2023-01-28] VITALS: Ht 157.5 cm; Wt 59.1 kg
[~2023-01-28 13:13] MED LIST changes: -CARV-49 PO
--- NOTE | 2023-01-28 16:19 | NUR ---
Pt just came to her room accompanied by her son. Pt arrived a/o but very talkative, gets agitated easily, and has flights of ideas frequently. Pt requested to talk to the ER doctor, Dr. Flynn came by to talk to the patient. Patient talking non-stop
--- NOTE | 2023-01-28 16:25 | NUR ---
Patient refused wearing patient gown, started yelling at me.
--- NOTE | 2023-01-28 16:27 | NUR ---
Very uncooperative with me, cannot do further interview or unable to complete assessment
[2023-01-28] MEDS ORDERED: LORazepam 2 mg/ml vial IM ONE (16:40)
[2023-01-28] MEDS ORDERED: haloperidol lactate 5mg/ml inj IM ONE (16:40)
[2023-01-28 17:16] LABS: BASOPHILS # (AUTO) 0.1 X10'3 (0-0.2); BASOPHILS % (AUTO) 0.5 % (0-1); EOSINOPHILS % (AUTO) 0.2 % (0-6); HEMATOCRIT 36.4 % (35.0-45.0); HEMOGLOBIN 11.8 g/dl (12.0-16.0); LYMPHOCYTES # (AUTO) 3.4 X10'3 (1.1-4.8); LYMPHOCYTES % (AUTO) 33.6 % (21-51); MEAN CORPUSCULAR HEMOGLOBIN 27.1 PG (27.0-31.0); MEAN CORPUSCULAR HGB CONC 32.3 g/dL (33.0-36.5); MEAN CORPUSCULAR VOLUME 83.9 FL (78-98); MEAN PLATELET VOLUME 9.1 FL (7.4-10.4); MONOCYTES # (AUTO) 0.8 X10'3 (0-0.9); MONOCYTES % (AUTO) 7.5 % (2-12); NEUTROPHILS # (AUTO) 5.8 X10'3 (1.8-7.7); NEUTROPHILS % (AUTO) 58.2 % (42-75); PLATELET COUNT 389 X10'3 (140-440); RED BLOOD COUNT 4.34 X10'6 (4.20-5.60); RED CELL DISTRIBUTION WIDTH 14.4 % (11.5-14.5); WHITE BLOOD COUNT 10.1 X10'3 (4.5-11.0)
[2023-01-28 17:31] LABS: ALANINE AMINOTRANSFERASE 14 U/L (12-78); ALBUMIN 4.1 G/DL (3.4-5.0); ALBUMIN/GLOBULIN RATIO 1.1 (1.1-1.5); ALKALINE PHOSPHATASE 117 IU/L (46-116); ANION GAP 11 (8-16); ASPARTATE AMINO TRANSFERASE 16 U/L (10-37); BILIRUBIN,TOTAL 0.8 MG/DL (0.1-1.0); BLOOD UREA NITROGEN 31 MG/DL (7-18); BUN/CREATININE RATIO 34.8 (6.6-38.0); CALCIUM 9.5 MG/DL (8.5-10.1); CHLORIDE 106 MMOL/L (99-107); CREATININE 0.89 MG/DL (0.40-0.90); GLUCOSE 146 MG/DL (70-104); POTASSIUM 3.8 MMOL/L (3.5-5.1); SODIUM 140 MMOL/L (135-145); TOTAL CARBON DIOXIDE 23.5 MMOL/L (24-32); TOTAL PROTEIN 7.9 G/DL (6.4-8.2); eGFR 62 ML/MIN
[2023-01-28 17:34] LABS: MAGNESIUM 2.1 MG/DL (1.5-2.4)
[2023-01-28 17:52] LABS: COLOR,URINE YELLOW (Yellow); GLUCOSE, URINE NEGATIVE (Neg); KETONES,URINE 40 mg/dl (Neg); LEUKOCYTE ESTERASE ,URINE NEGATIVE (Neg); NITRITES, URINE NEGATIVE (Neg); OCCULT BLOOD,URINE SMALL (Neg); PROTEIN,URINE NEGATIVE (Neg); UROBILINOGEN,URINE 0.2 E.U/dL (0.2-1.0)
[2023-01-28 17:53] LABS: CLARITY,URINE SLIGHTLY CLOUDY (Clear); UA COLLECTION TYPE CLN CATCH MIDSTREAM
[2023-01-28 17:57] LABS: BACTERIA,URINE NONE SEEN /HPF (Neg); RBC,URINE 0-2 /HPF (0-2); SQUAMOUS EPITHELIAL CELL,UR FEW /LPF (FEW); TRANSITIONAL EPI CELLS,URINE FEW /HPF; WBC,URINE 0-4 /HPF (0-4)
--- NOTE | 2023-01-28 18:03 | NUR ---
Pt calm at the moment but still persistently wanted to stay at the doctor's station.
--- NOTE | 2023-01-28 18:15 | NUR ---
Per charge nurse Tresa, pt already received the Ativan and Haldol ordered
--- NOTE | 2023-01-29 09:25 | NUR ---
Pt sitting quietly in room eating breakfast. Has been mildly disruptive and demanding this morning, able to be redirected.
--- NOTE | 2023-01-29 09:42 | NUR ---
Pt sitting quietly on a stool at the threshold of her room.
--- NOTE | 2023-01-29 09:42 | NUR ---
pt walked to bathroom
--- NOTE | 2023-01-29 10:17 | NUR ---
PT SITTING QUIETLY IN BED
--- NOTE | 2023-01-29 12:33 | NUR ---
Pt ambulating to bathroom
[2023-01-29] MEDS ORDERED: LORazepam 2 mg/ml vial IM PRN (13:35)
--- NOTE | 2023-01-29 13:57 | NUR ---
PATIENT WALKED OVER TO OVERFLOW. PATIENT STATES , " JUST DONT FUCKING TOUCH ME AND WE WILL BE JUST FINE". PATIENT REFUSED TO GIVE UP PERSONAL CLOTHING. PATIENT CHANGED INTO GREENS WITH HER BLUE SWEATER UNDER GREENS.
[2023-01-29] MEDS ORDERED: LORA2ORA5 PO (14:11)
--- NOTE | 2023-01-29 14:20 | NUR ---
MED REC COMPLETED
[2023-01-29] MEDS ORDERED: OLANZapine 5mg rapidly disint. tablet PO ONE (14:35)
--- NOTE | 2023-01-29 15:05 | NUR ---
PATIENT SITTING UP IN BED.
[2023-01-29 16:26] LABS: URINE AMPHETAMINE SCREEN NEGATIVE (Neg); URINE BARBITUATE SCREEN NEGATIVE (Neg); URINE BENZODIAZEPINES SCREEN NEGATIVE (Neg); URINE CANNABINOID SCREEN NEGATIVE (Neg); URINE COCAINE SCREEN NEGATIVE (Neg); URINE METHADONE SCREEN NEGATIVE (Neg); URINE OPIATE SCREEN NEGATIVE (Neg); URINE PHENCYCLIDINE SCREEN NEGATIVE (Neg)
--- NOTE | 2023-01-29 16:48 | NUR ---
PATIENTS SON AT BEDSIDE. PATIENT IS SITTING UP IN BED TALKING TO OTHER PATIENT
--- NOTE | 2023-01-29 16:50 | NUR ---
PATIENT PACKET SENT TO [facility]
--- NOTE | 2023-01-29 16:58 | NUR ---
Son came in to have patient sign some form. Not sure patient has the capacity to sign legal document.
[2023-01-29] MEDS ORDERED: LORAZEPAM 2 MG/1 ML PO SCH (17:30)
[2023-01-29] MEDS ORDERED: LORA-269 PO (18:05)
[2023-01-29] MEDS: LORazepam 1 MG tablet PO SCH (19:57)
--- NOTE | 2023-01-29 20:04 | NUR ---
Received patient report from Miriam MERRILL. Pt A&O to self only. Pressured speech, tangential thought process, ideas of grandiosity. Pt denies SI/HI, AV/H, depression/anxiety. Pt appears disheveled wearing personal clothing underneath green scrubs. Denies any complaints of pain. Received yogurt and ate in bed. Laying quietly at the moment appearing to be asleep.
[2023-01-29] MEDS: olanzapine 10mg tablet PO SCH (20:16)
--- NOTE | 2023-01-29 21:54 | NUR ---
Patient lying supine in bed with eyes closed, appearing to be sleeping.
--- NOTE | 2023-01-30 00:49 | NUR ---
Pt appears to be asleep. Lying on left side. In no apparent distress.
--- NOTE | 2023-01-30 01:56 | NUR ---
Pt lying supine. Appears to be sleeping in no apparent distress.
--- NOTE | 2023-01-30 03:28 | NUR ---
Pt lying on right side. Appears to be sleeping. In no apparent distress.
--- NOTE | 2023-01-30 05:11 | NUR ---
Pt lying supine. Appears to be sleeping. In no apparent distress.
--- NOTE | 2023-01-30 05:58 | NUR ---
Pt awake and conversing with peer. In no apparent distress. Pt reports sleeping well.
--- NOTE | 2023-01-30 06:30 | NUR ---
Pt is lying in bed on her back, she appears to be sleeping.
--- NOTE | 2023-01-30 06:50 | NUR ---
Pt is awake asking for some tea.
--- NOTE | 2023-01-30 08:17 | NUR ---
Pt is eating breakfast.
[2023-01-30] MEDS: OLANZapine 2.5MG tablet PO SCH (08:19)
[2023-01-30] MEDS: lisinopril 20mg tablet PO SCH (08:20)
[2023-01-30] MEDS: amLODIPine 5mg tablet PO SCH (08:20)
[2023-01-30] MEDS: LORazepam 1 MG tablet PO SCH ×2 (08:20→19:33)
[2023-01-30] MEDS: aspirin 81mg tab.chew PO SCH (08:20)
[2023-01-30] MEDS: atorvastatin 20mg tablet PO SCH (08:21)
--- NOTE | 2023-01-30 08:46 | NUR ---
Pt lectured this nurse for interrupting her during her breakfast. Pt states that breakfast is the most important meal and she does not like for it to get cold.
--- NOTE | 2023-01-30 10:15 | NUR ---
Pt is not being placed on a psych hold per [facility].
--- NOTE | 2023-01-30 10:32 | NUR ---
tech zelalem swabbed pt, tech took swab down to the lab for results
--- NOTE | 2023-01-30 12:09 | NUR ---
Pt is eating her lunch.
--- NOTE | 2023-01-30 14:09 | NUR ---
Pt is lying in bed on her back with her eyes closed.
--- NOTE | 2023-01-30 16:00 | NUR ---
Pt is lying in bed, appears to be napping.
--- NOTE | 2023-01-30 17:29 | NUR ---
Pt is awake sitting quietly in her room waiting for dinner.
--- NOTE | 2023-01-30 18:37 | NUR ---
Patient is laying in his bed watching television. No distress.
[2023-01-30] MEDS: olanzapine 10mg tablet PO SCH (20:10)
[2023-01-30] MEDS: diphenhydrAMINE 25mg capsule PO SCH (20:10)
--- NOTE | 2023-01-30 21:36 | NUR ---
Patient is now sleeping quietly.
--- NOTE | 2023-01-31 01:52 | NUR ---
Patient is sleeping quietly in a supine position.
--- NOTE | 2023-01-31 03:08 | NUR ---
Patient awoke from sleep. She ambulated to the nurses station and checked on the time. She then ambulated to the bathroom and returned to bed.
--- NOTE | 2023-01-31 04:46 | NUR ---
The patient sleeps quietly, no distress noted.
--- NOTE | 2023-01-31 06:12 | NUR ---
Assumed care of pt. Pt is awake and visiting with her neighbor. No distress noted.
[2023-01-31] MEDS: atorvastatin 20mg tablet PO SCH (08:12)
[2023-01-31] MEDS: OLANZapine 2.5MG tablet PO SCH (08:12)
[2023-01-31] MEDS: LORazepam 1 MG tablet PO SCH ×2 (08:12→20:20)
[2023-01-31] MEDS: aspirin 81mg tab.chew PO SCH (08:12)
[2023-01-31] MEDS: lisinopril 20mg tablet PO SCH (08:14)
[2023-01-31] MEDS: amLODIPine 5mg tablet PO SCH (08:14)
--- NOTE | 2023-01-31 08:24 | NUR ---
Pt awake and up at the nurses station visiting with staff. No distress noted.
--- NOTE | 2023-01-31 10:30 | NUR ---
Pt resting with eyes closed, No distress noted. Noted rise and fall of chest.
--- NOTE | 2023-01-31 11:28 | NUR ---
Pt resting with eyes closed, No distress noted. Noted rise and fall of chest.
--- NOTE | 2023-01-31 12:32 | NUR ---
Pt eating lunch at this time while stating "Im ready to go home." Pt informed her discharge has not been started at this time. Pt was irritable but did not continue with conversation.
--- NOTE | 2023-01-31 14:05 | NUR ---
pt resting in bed with eyes closed, nad.
--- NOTE | 2023-01-31 15:32 | NUR ---
Pt up utilizing restroom.
--- NOTE | 2023-01-31 16:31 | NUR ---
Pt awake and visiting with her son at her bedside. No distress noted.
--- NOTE | 2023-01-31 17:33 | NUR ---
Pt resting in bed. No distress noted. Paperwork left by [facility] staff for son to fill out in order for patient to apply for medi-marifer. Paperwork is at nurses station.
--- NOTE | 2023-01-31 18:00 | NUR ---
Pt awake eating dinner.
--- NOTE | 2023-01-31 18:30 | NUR ---
Patient is alert and cooperative. No distress. Patient socializes with staff and other patients.
--- NOTE | 2023-01-31 20:13 | NUR ---
Patient is intermittently sleeping on her bed. In view from the nurses station.
[2023-01-31] MEDS: diphenhydrAMINE 25mg capsule PO SCH (20:20)
[2023-01-31] MEDS: olanzapine 10mg tablet PO SCH (20:20)
--- NOTE | 2023-01-31 22:04 | NUR ---
Patient sleeps quietly.
--- NOTE | 2023-02-01 00:41 | NUR ---
Patient awoke and ambulated to the bathroom, then back to bed.
--- NOTE | 2023-02-01 05:13 | NUR ---
Patient is sleeping quietly, no distress. Good color.
--- NOTE | 2023-02-01 07:00 | NUR ---
Pt awake at this time but states she is still sleepy. Pt appears pleasant at this time with no obvious behavioral issues.
[2023-02-01] MEDS: atorvastatin 20mg tablet PO SCH (07:38)
[2023-02-01] MEDS: LORazepam 1 MG tablet PO SCH ×2 (07:39→20:00)
[2023-02-01] MEDS: OLANZapine 2.5MG tablet PO SCH (07:39)
[2023-02-01] MEDS: aspirin 81mg tab.chew PO SCH (07:39)
[2023-02-01] MEDS: amLODIPine 5mg tablet PO SCH (07:39)
[2023-02-01] MEDS: lisinopril 20mg tablet PO SCH (07:39)
--- NOTE | 2023-02-01 08:00 | NUR ---
Pt awake eating breakfast, meds given, patient cooperative at this time.
--- NOTE | 2023-02-01 09:00 | NUR ---
Pt up at desk talking to staff, no current concerns/distress.
--- NOTE | 2023-02-01 10:35 | NUR ---
Pt has fallen back asleep after being in and out of restroom with "constipation"
--- NOTE | 2023-02-01 11:58 | NUR ---
Pt sleeping comfortably at this time/no signs of distress
--- NOTE | 2023-02-01 13:51 | NUR ---
Patient doing well. Pt asked for a vegetarian lunch instead of a regular lunch and is eating her lunch. Pt has been up to restroom. No distress or new concerns.
--- NOTE | 2023-02-01 15:10 | NUR ---
Pt has been resting comfortably in bed. Does not appear to be in any distress, no new concerns at this time.
--- NOTE | 2023-02-01 16:50 | NUR ---
Pt resting comfortably in bed. Pleasant and frequently chats with neighbor. Came to the nurse's station to call son. Up to the bathroom, reports finally having a bowel movement. No new concerns, all needs met at this time.
--- NOTE | 2023-02-01 18:13 | NUR ---
Pt eating dinner. She is happy to have a vegetarian dinner. No current signs of distress or new concerns.
--- NOTE | 2023-02-01 18:59 | NUR ---
Assumed care from Tresa MERRILL. Pt appears to be sleeping at this time. RR 12 even, unlabored. pt has no needs at this time, will continue to moniter.
--- NOTE | 2023-02-01 20:00 | NUR ---
PATIENT MOVED FROM OVERFLOW ROOM 26 TO ER MAIN ROOM 13.
--- NOTE | 2023-02-01 20:01 | NUR ---
REPORT GIVEN TO JHONY MERRILL.
--- NOTE | 2023-02-01 20:31 | NUR ---
Handoff report from GABRIELA An. Pt has been sleeping in room with her face covered.
[2023-02-01] MEDS: diphenhydrAMINE 25mg capsule PO SCH (20:46)
[2023-02-01] MEDS: olanzapine 10mg tablet PO SCH (20:47)
--- NOTE | 2023-02-01 21:00 | NUR ---
Pt refused ativan and benadryl, she said "why do you give me so many pills? I can barely stay awake". RN informed pt that she can refuse any medications.
--- NOTE | 2023-02-01 22:31 | NUR ---
Pt remains asleep in bed with her face covered.
--- NOTE | 2023-02-01 23:46 | NUR ---
Pt is asleep
--- NOTE | 2023-02-02 00:18 | NUR ---
Pt remained asleep
--- NOTE | 2023-02-02 03:03 | NUR ---
Pt remains asleep
--- NOTE | 2023-02-02 03:04 | NUR ---
Pt is sitting up in bed with eyes closed. RN asked if everything is okay, pt gave a thumb up
--- NOTE | 2023-02-02 03:47 | NUR ---
Pt OOB to use restroom. Gait steady.
--- NOTE | 2023-02-02 04:34 | NUR ---
Pt asleep in bed
--- NOTE | 2023-02-02 05:26 | NUR ---
Pt asleep in bed
--- NOTE | 2023-02-02 06:30 | NUR ---
Assumed care of pt. Pt observed sleeping on her right side. RR even and unlabored.
--- NOTE | 2023-02-02 08:28 | NUR ---
Pt ambulating to the bathroom after having her breakfast. Pt is polite with staff and cooperative.
[2023-02-02] MEDS: OLANZapine 2.5MG tablet PO SCH (09:21)
[2023-02-02] MEDS: lisinopril 20mg tablet PO SCH (09:22)
[2023-02-02] MEDS: amLODIPine 5mg tablet PO SCH (09:22)
[2023-02-02] MEDS: atorvastatin 20mg tablet PO SCH (09:22)
[2023-02-02] MEDS: aspirin 81mg tab.chew PO SCH (09:23)
[2023-02-02] MEDS: LORazepam 1 MG tablet PO SCH ×2 (09:26→19:51)
--- NOTE | 2023-02-02 10:41 | NUR ---
Pt up talking with staff, no distress noted or reported.
--- NOTE | 2023-02-02 12:50 | NUR ---
Pt appears to be resting. RR even and unlabored.
--- NOTE | 2023-02-02 14:33 | NUR ---
Pt reports having had a bowel movement. She received a call from her son then fell back to sleep. She appears to be resting comfortably.
--- NOTE | 2023-02-02 16:26 | NUR ---
Pt appears to be sleeping supine. RR even and unlabored.
--- NOTE | 2023-02-02 18:23 | NUR ---
Pt has been resting on her bed. She ate her dinner then brought her tray up too the nurses station and thanked staff for her food commenting how "nice my dinner was."
--- NOTE | 2023-02-02 18:47 | NUR ---
Pt is resting quietly in bed. Pt states she doesnt know why she is here and has no needs at this time. Pt seems gaurded states "Im fine."
--- NOTE | 2023-02-02 19:38 | NUR ---
Pt is up socializing with the next bed. Pt is pleasant and cooperative gets along well with female patient in the next bed. Pt checked the time.
[2023-02-02] MEDS: olanzapine 10mg tablet PO SCH (19:51)
[2023-02-02] MEDS: diphenhydrAMINE 25mg capsule PO SCH (19:51)
--- NOTE | 2023-02-02 19:56 | NUR ---
Pt approached nurses station and requested HS meds stating she is tired and wants to go to sleep and would like some warm blankets. Pt was assisted with bedding and took HS meds. She is resting quietly
--- NOTE | 2023-02-02 21:36 | NUR ---
pt is asleep snoring softly rr even and unlabored rr 16.
--- NOTE | 2023-02-03 00:45 | NUR ---
Pt is supine, rr 14 even and unlabored no s/s distress.
--- NOTE | 2023-02-03 03:51 | NUR ---
Pt continues to sleep, rr 15 no s/s distress.
--- NOTE | 2023-02-03 05:46 | NUR ---
Pt is awaken for vitals and went back to sleep.
--- NOTE | 2023-02-03 07:08 | NUR ---
Patient is resting in bed with eyes closed, in no distress at this time. Bed wheels are locked and siderails up x2.
[2023-02-03] MEDS: LORazepam 1 MG tablet PO SCH ×2 (08:26→20:19)
[2023-02-03] MEDS: aspirin 81mg tab.chew PO SCH (08:26)
[2023-02-03] MEDS: atorvastatin 20mg tablet PO SCH (08:26)
[2023-02-03] MEDS: amLODIPine 5mg tablet PO SCH (08:27)
[2023-02-03] MEDS: OLANZapine 2.5MG tablet PO SCH (08:28)
[2023-02-03] MEDS: lisinopril 20mg tablet PO SCH (08:28)
--- NOTE | 2023-02-03 09:44 | NUR ---
Patient son came to visit patient. Son had his mom sign some paperwork in a brown folder.
--- NOTE | 2023-02-03 10:15 | NUR ---
Patient son was wanting to know why when his mom is here she seems to be normal but when he takes her home she is altered again. RN suggested that he take her to her PCP for medication evaluation/adjustment. Patient son will be calling the pcp for an appointment for patient.
--- NOTE | 2023-02-03 10:30 | NUR ---
Patient son left from visiting and dropped off paperwork at the security desk for case mangement.
--- NOTE | 2023-02-03 12:00 | NUR ---
Patient received lunch and eating it sitting on side of the bed. Patient ate all lunch
--- NOTE | 2023-02-03 15:16 | NUR ---
Patient called son on the phone and spoke with him for 15mins. Patient is now resting in bed with eyes closed.
--- NOTE | 2023-02-03 16:30 | NUR ---
Patient is sitting up in bed eating a snack and talking with another patient.
--- NOTE | 2023-02-03 18:09 | NUR ---
Patient sitting up on the edge of the bed eating dinner.
--- NOTE | 2023-02-03 18:20 | NUR ---
RN gave report to the oncoming RN on patient and questions were asked and answered.
--- NOTE | 2023-02-03 20:06 | NUR ---
The patient has been resting on her bed watching tv and eating her dinner. She was pleasant when approached. She denies physical complaints. She stated that she plans to go home with her son when he is ready to come get her.
[2023-02-03] MEDS: diphenhydrAMINE 25mg capsule PO SCH (20:19)
[2023-02-03] MEDS: olanzapine 10mg tablet PO SCH (20:19)
--- NOTE | 2023-02-03 20:56 | NUR ---
The patient is resting quietly on her bed and is socializing with a female peer
--- NOTE | 2023-02-03 23:25 | NUR ---
The patient appears to be sleeping
--- NOTE | 2023-02-04 01:03 | NUR ---
The patient appears to be sleeping
--- NOTE | 2023-02-04 03:06 | NUR ---
The patient appears to be sleeping.
--- NOTE | 2023-02-04 05:08 | NUR ---
The patient appears to be sleeping
--- NOTE | 2023-02-04 06:51 | NUR ---
Patient sleeping supine with her coat laying over her. No distress observed. Continue to monitor.
--- NOTE | 2023-02-04 08:12 | NUR ---
Patient eating breakfast. No distress observed. Continue to monitor.
[2023-02-04] MEDS: amLODIPine 5mg tablet PO SCH (08:34)
[2023-02-04] MEDS: LORazepam 1 MG tablet PO SCH (08:35)
[2023-02-04] MEDS: atorvastatin 20mg tablet PO SCH (08:35)
[2023-02-04] MEDS: OLANZapine 2.5MG tablet PO SCH (08:36)
[2023-02-04] MEDS: lisinopril 20mg tablet PO SCH (08:36)
[2023-02-04] MEDS: aspirin 81mg tab.chew PO SCH (08:36)
--- NOTE | 2023-02-04 10:22 | NUR ---
Patient came to the nurse's station and wanted us to tell her son that she is ready to go whenever he can come and get her. RN is not sure when he plans to take her home. He is working this out with Kendra, the [facility] Film Process Operator. Continue to monitor.
--- NOTE | 2023-02-04 12:14 | NUR ---
Patient eating lunch. No distress observed. Continue to monitor.
--- NOTE | 2023-02-04 14:05 | NUR ---
Patient watching T.V. and eating a snack. No distress observed. Continue to monitor.
--- NOTE | 2023-02-04 16:06 | NUR ---
Patient sleeping supine with T.V. on. No distress observed. Continue to monitor.
--- NOTE | 2023-02-04 17:01 | NUR ---
vitals done, patient sitting in bed watching tv, no requests at this time.
[2023-02-04 18:04] VITALS: BP 96/55
== END 2023-02-04 18:05 | disposition home or self-care (01) ==
LOC: ER 13:13
DX: F03.90 Unspecified dementia, unspecified severity, without behavioral disturbance, psychotic disturbance, mood disturbance, and anxiety (principal); Z20.822 Contact with and (suspected) exposure to COVID-19; F23 Brief psychotic disorder; Z88.8 Allergy status to other drugs, medicaments and biological substances; Z91.018 Allergy to other foods
CPT/HCPCS: 36415; 70450; 71045; 80053; 80305; 81001; 83735; 84484; 85025; 87811; 93005; 96372; 99285; J1630; J2060

== ENCOUNTER 2023-02-13 15:43 | Emergency (ER) | payer MEDICARE, MEDICAID ==
[~2023-02-13] VITALS: Ht 162.6 cm; Wt 50.0 kg
[~2023-02-13 15:43] MED LIST changes: +LORA-269 PO
[2023-02-13] MEDS ORDERED: OLANZapine **IM** 10 mg inj. IM ONE (16:05)
[2023-02-13] MEDS ORDERED: LORazepam 2 mg/ml vial IM ONE (16:05)
[2023-02-13 17:24] VITALS: BP 124/57
[2023-02-13] MEDS ORDERED: OLAN2.5T3 PO ×2 (18:15)
[2023-02-13] MEDS ORDERED: OLAN10TA3 PO ×2 (18:15)
--- NOTE | 2023-02-13 18:50 | NUR ---
CONTACTED SON NORMA, TO ACTIVE DIRECTORY ENGINEER.
[2023-02-13] MEDS ORDERED: LORazepam 2 mg/ml vial ONE (20:51)
== END 2023-02-13 22:23 | disposition home or self-care (01) ==
LOC: ER 15:44
DX: Z04.6 Encounter for general psychiatric examination, requested by authority (principal); F03.90 Unspecified dementia, unspecified severity, without behavioral disturbance, psychotic disturbance, mood disturbance, and anxiety; Z88.8 Allergy status to other drugs, medicaments and biological substances; Z91.018 Allergy to other foods
CPT/HCPCS: 96372; 99284; J2060; J3490

== ENCOUNTER 2023-02-17 14:54 | Emergency (ER) | payer MEDICARE, MEDICAID ==
[~2023-02-17] VITALS: Ht 162.6 cm; Wt 110.0 kg
[2023-02-17] MEDS ORDERED: LORazepam 2 mg/ml vial IM ONE (15:10)
[2023-02-17] MEDS ORDERED: haloperidol lactate 5mg/ml inj IM ONE (15:10)
--- NOTE | 2023-02-17 15:25 | NUR ---
Patient screaming and not making sense. Patient goes back and forth from Nepali to Guyanese. Patient also rude to anyone who walks into her room. Continue to monitor.
--- NOTE | 2023-02-17 15:30 | NUR ---
RN gave patient an injection of Ativan and Haldol. Patient tolerated well. Continue to monitor.
[2023-02-17] MEDS ORDERED: LORA-269 PO ×2 (16:40)
--- NOTE | 2023-02-17 17:08 | NUR ---
RN called Yogesh Adkins, patient's son to advise that patient is ready to be picked up. Yogesh was condescending and stated he needs help getting patient to the car. RN assured son that there would be plenty of help getting patient to his car. RN reminded patient that he needs to get his mom into see her doctor to adjust the medication. Son states patient is not safe at home when he is at work. RN explains that this is an E.R. and we are not responsible to place his mom. Son then asks why did MARLENY Gardner, give him paperwork to place his mother. RN advised patient tht he would need to speak to her. Son stated he left her a message today. Son stated he would be here to pick pulling machine tender his mom sometime today.
--- NOTE | 2023-02-17 18:46 | NUR ---
Recvd report from Anna MERRILL, assumed care. Pt is asleep, RR 20 even and unlabored
--- NOTE | 2023-02-17 18:56 | NUR ---
easton Calero, advised RN that patient's son called and stated he doesn't feel that his mom is safe to go home so he will not be picking her up. RN advised discharge door operator Corral.
--- NOTE | 2023-02-18 00:15 | NUR ---
PT AMBULATED TO AND FROM RESTROOM WITH NO VISUAL OR VERBAL COMPLAINTS.
[2023-02-18] MEDS ORDERED: olanzapine 10mg tablet PO STA (09:41)
[2023-02-18] MEDS ORDERED: LORazepam 1 MG tablet PO ONE (09:45)
--- NOTE | 2023-02-18 10:00 | NUR ---
PT THREW P.O. MEDS AT RN - SWITCHED TO IM
[2023-02-18] MEDS ORDERED: OLANZapine **IM** 10 mg inj. IM ONE (10:30)
[2023-02-18] MEDS ORDERED: haloperidol lactate 5mg/ml inj IM ONE (11:00)
[2023-02-18] MEDS ORDERED: LORazepam 2 mg/ml vial IM ONE (11:00)
--- NOTE | 2023-02-18 11:24 | NUR ---
PT MEDICATED FOR UNSAFE BEHAVIOR TOWARD STAFF. SHE IS THROWING SHOES AND GETTING PHYSICAL WITH STAFF. PT FAILED VERBAL REDIRECTION
[2023-02-18 11:32] LABS: CLARITY,URINE CLEAR (Clear); COLOR,URINE YELLOW (Yellow); GLUCOSE, URINE NEGATIVE (Neg); KETONES,URINE 15 mg/dl (Neg); LEUKOCYTE ESTERASE ,URINE NEGATIVE (Neg); NITRITES, URINE NEGATIVE (Neg); OCCULT BLOOD,URINE TRACE-INTACT (Neg); PROTEIN,URINE NEGATIVE (Neg); UROBILINOGEN,URINE 0.2 E.U/dL (0.2-1.0)
[2023-02-18 11:35] LABS: UA COLLECTION TYPE VOIDED
[2023-02-18 11:39] LABS: BACTERIA,URINE 1+ /HPF (Neg); MUCUS STRANDS MODERATE /LPF (Neg); RBC,URINE 0-2 /HPF (0-2); SQUAMOUS EPITHELIAL CELL,UR FEW /LPF (FEW)
[2023-02-18 11:40] LABS: CAL OXALATE CRYSTALS 1+ /HPF (NEGATIVE); CELLULAR CAST 0-4 /LPF (NEGATIVE)
--- NOTE | 2023-02-18 14:54 | NUR ---
PT AWAKE BUT CALM. SITTING ON GURNEY IN ROOM
[2023-02-18 17:09] LABS: BASOPHILS # (AUTO) 0.1 X10'3 (0-0.2); BASOPHILS % (AUTO) 0.8 % (0-1); EOSINOPHILS # (AUTO) 0.1 X10'3 (0-0.9); EOSINOPHILS % (AUTO) 1.7 % (0-6); HEMATOCRIT 37.7 % (35.0-45.0); HEMOGLOBIN 12.6 g/dl (12.0-16.0); LYMPHOCYTES # (AUTO) 3.3 X10'3 (1.1-4.8); LYMPHOCYTES % (AUTO) 41.8 % (21-51); MEAN CORPUSCULAR HEMOGLOBIN 27.6 PG (27.0-31.0); MEAN CORPUSCULAR HGB CONC 33.3 g/dL (33.0-36.5); MEAN CORPUSCULAR VOLUME 82.8 FL (78-98); MEAN PLATELET VOLUME 9.1 FL (7.4-10.4); MONOCYTES # (AUTO) 0.6 X10'3 (0-0.9); MONOCYTES % (AUTO) 7.6 % (2-12); NEUTROPHILS # (AUTO) 3.8 X10'3 (1.8-7.7); NEUTROPHILS % (AUTO) 48.1 % (42-75); PLATELET COUNT 388 X10'3 (140-440); RED BLOOD COUNT 4.55 X10'6 (4.20-5.60); RED CELL DISTRIBUTION WIDTH 14.9 % (11.5-14.5); WHITE BLOOD COUNT 7.9 X10'3 (4.5-11.0)
[2023-02-18 17:25] LABS: ALANINE AMINOTRANSFERASE 19 U/L (12-78); ALBUMIN 3.6 G/DL (3.4-5.0); ALBUMIN/GLOBULIN RATIO 0.9 (1.1-1.5); ALKALINE PHOSPHATASE 107 IU/L (46-116); ANION GAP 7 (8-16); ASPARTATE AMINO TRANSFERASE 27 U/L (10-37); BILIRUBIN,TOTAL 0.6 MG/DL (0.1-1.0); BLOOD UREA NITROGEN 27 MG/DL (7-18); BUN/CREATININE RATIO 39.1 (10.0-20.0); CALCIUM 9.3 MG/DL (8.5-10.1); CHLORIDE 107 MMOL/L (99-107); CREATININE 0.69 MG/DL (0.40-0.90); GLUCOSE 110 MG/DL (70-104); POTASSIUM 3.5 MMOL/L (3.5-5.1); SODIUM 143 MMOL/L (135-145); TOTAL CARBON DIOXIDE 28.9 MMOL/L (24-32); TOTAL PROTEIN 7.8 G/DL (6.4-8.2); eGFR 83 ML/MIN
--- NOTE | 2023-02-18 19:00 | NUR ---
PT GIVEN WARM BLANKETS FOOD TRAY REMOVED PT RESTING IN BED SIDERAILS UP NO VERBAL COMPLAINTS
--- NOTE | 2023-02-19 02:00 | NUR ---
AMBULATED TO AND FROM RESTROOM WITH NO VISUAL NOR VERBAL COMPLAINTS. PT RETURNED TO BED, RESTING COMFORTABLY
[2023-02-19 02:12] LABS: COLOR,URINE YELLOW (Yellow); GLUCOSE, URINE NEGATIVE (Neg); KETONES,URINE 40 mg/dl (Neg); LEUKOCYTE ESTERASE ,URINE NEGATIVE (Neg); NITRITES, URINE NEGATIVE (Neg); OCCULT BLOOD,URINE TRACE-INTACT (Neg); PROTEIN,URINE NEGATIVE (Neg)
[2023-02-19 02:17] LABS: CLARITY,URINE SLIGHTLY CLOUDY (Clear); SQUAMOUS EPITHELIAL CELL,UR MODERATE /LPF (FEW); UA COLLECTION TYPE CLN CATCH MIDSTREAM
[2023-02-19 02:18] LABS: MUCUS STRANDS MANY /LPF (Neg)
[2023-02-19 02:19] LABS: AMORPHOUS URATES 1+; BACTERIA,URINE FEW /HPF (Neg); TRANSITIONAL EPI CELLS,URINE FEW /HPF
--- NOTE | 2023-02-19 07:23 | NUR ---
Pt. was brought over from the main ER in a gurney, she was able to independently transfer to bed by ambulating.
--- NOTE | 2023-02-19 09:31 | NUR ---
Pt. is laying in bed at this time, and will yell out random disorganized statements at intervals requiring redirection.
[2023-02-19] MEDS ORDERED: OLAN2.5T3 PO (09:41)
[2023-02-19] MEDS ORDERED: DIPH25CA83 PO (09:41)
[2023-02-19] MEDS ORDERED: LISI20TA28 PO (09:41)
[2023-02-19] MEDS ORDERED: LORA-269 PO (09:41)
[2023-02-19] MEDS ORDERED: OLAN10TA3 PO (09:41)
[2023-02-19] MEDS ORDERED: ATOR80TA PO (09:41)
[2023-02-19] MEDS ORDERED: AMLO10TA48 PO (09:41)
[2023-02-19] MEDS ORDERED: ASPI-1265 PO (09:41)
--- NOTE | 2023-02-19 09:54 | NUR ---
This proposal manager writer verified pt's medications with her Pharmacy, [facility] on [address].
[2023-02-19] MEDS: amLODIPine 5mg tablet PO SCH (10:18)
[2023-02-19] MEDS: LORazepam 1 MG tablet PO SCH ×2 (10:18→20:12)
[2023-02-19] MEDS: aspirin 81mg tab.chew PO SCH (10:18)
[2023-02-19] MEDS: atorvastatin 20mg tablet PO SCH (10:19)
[2023-02-19] MEDS: lisinopril 20mg tablet PO SCH (10:19)
[2023-02-19] MEDS: olanzapine 10mg tablet PO SCH (10:19)
--- NOTE | 2023-02-19 10:20 | NUR ---
Pt. was compliant with taking her ordered medications in yogurt. She continues to yell out at intervals, be demaning, labile, and intrusive requiring redirection. This physician underwriter spoke to Dr. Madsen regarding pt's increased WBC in urine test upon admission, per Dr. Madsen pt. will not receive treatment for a UTI at this time as she is not exhibiting any s/s such as urinary frequency or pain with urination. Will continue to monitor pt. closely.
--- NOTE | 2023-02-19 10:30 | NUR ---
1:1 was completed at bedside and pt. presents as disoriented and disorganized and is A&O X1 to name only. When questioned by this bond writer why she is here, pt. states, "Yaneth, yaneth, yaneth. Gerhard Jordan, adela." Pt. currently denies all mental health s/s. She talks in a disorganized manner about random topics and is difficult to understand.
--- NOTE | 2023-02-19 11:18 | NUR ---
Pt. is sleeping at this time, rr are even and unlabored. Pt. is refusing to change into a [facility] shirt and has this on top of her head at this time, staff will continue to encourage pt. to change. She does have [facility] pants on. Addendum: 02/19/23 at 1800 by LEONARD Pt. is not on a mental health hold , per ER director she can keep some of her own clothing on at this time as there is no safety risk present. Will endorse to Noc candy.
--- NOTE | 2023-02-19 13:19 | NUR ---
Pt. continues to sleep at this time, rise and fall of chest noted.
--- NOTE | 2023-02-19 15:18 | NUR ---
Pt. continues to sleep at this time, no s/s of distress noted. She remains in LOS of the nurse's station.
--- NOTE | 2023-02-19 16:08 | NUR ---
Pt. awake at this time, sitting up eating a snack.
--- NOTE | 2023-02-19 17:33 | NUR ---
Pt. is sitting up eating dinner at this time.
--- NOTE | 2023-02-19 19:23 | NUR ---
The patient is resting on her bed making bizarre statements. She is calling out odd phrases "I love my helmet" She is disorganized and had difficulty answering simple questions. She is not oriented.
[2023-02-19] MEDS: diphenhydrAMINE 25mg capsule PO SCH (20:12)
[2023-02-19] MEDS: OLANZapine 2.5MG tablet PO SCH (20:12)
--- NOTE | 2023-02-19 21:25 | NUR ---
The patient up to use the bathroom
--- NOTE | 2023-02-19 23:41 | NUR ---
The patient appears to be sleeping
--- NOTE | 2023-02-20 00:58 | NUR ---
The patient appears to be sleeping
--- NOTE | 2023-02-20 02:58 | NUR ---
The patient appears to be sleeping
--- NOTE | 2023-02-20 04:59 | NUR ---
The patient appears to be sleeping
--- NOTE | 2023-02-20 06:52 | NUR ---
Assumed care of patient that is sleeping.
--- NOTE | 2023-02-20 07:30 | NUR ---
The patient is up to use the bathroom.
--- NOTE | 2023-02-20 09:25 | NUR ---
The patient appears to be sleeping
[2023-02-20] MEDS: aspirin 81mg tab.chew PO SCH (09:37)
[2023-02-20] MEDS: lisinopril 20mg tablet PO SCH (09:39)
[2023-02-20] MEDS: amLODIPine 5mg tablet PO SCH (09:39)
[2023-02-20] MEDS: atorvastatin 20mg tablet PO SCH (09:40)
[2023-02-20] MEDS: olanzapine 10mg tablet PO SCH (09:40)
[2023-02-20] MEDS: LORazepam 1 MG tablet PO SCH ×2 (10:09→20:44)
--- NOTE | 2023-02-20 11:38 | NUR ---
Patient is attempting to sleep, but she keeps getting woke by her neighbor.
--- NOTE | 2023-02-20 12:30 | NUR ---
Patient sitting on her bed finishing her lunch meal. She denies needs.
--- NOTE | 2023-02-20 15:17 | NUR ---
Patient in supine position, appears to be sleeping. RR even and unlabored.
--- NOTE | 2023-02-20 17:54 | NUR ---
Patient up to the bathroom to clean up before dinner.
--- NOTE | 2023-02-20 18:45 | NUR ---
Pt cooperative. Ate 100% of dinner.
--- NOTE | 2023-02-20 19:37 | NUR ---
Pt currently sleeping, no s/s of distress.
[2023-02-20] MEDS: OLANZapine 2.5MG tablet PO SCH (20:44)
[2023-02-20] MEDS: diphenhydrAMINE 25mg capsule PO SCH (20:44)
--- NOTE | 2023-02-20 22:30 | NUR ---
Pt appears to be sleeping.
--- NOTE | 2023-02-21 00:58 | NUR ---
Pt appears to be sleeping.
--- NOTE | 2023-02-21 04:12 | NUR ---
Pt appears to be sleeping.
--- NOTE | 2023-02-21 06:52 | NUR ---
Patient is lying in bed sleeping. No S/S of distress noted.
--- NOTE | 2023-02-21 07:01 | NUR ---
Patient up to the restroom, then back to bed.
[2023-02-21] MEDS ORDERED: acetaminophen 325mg tablet PO PRN (07:35)
[2023-02-21] MEDS: LORazepam 1 MG tablet PO SCH ×2 (07:43→20:21)
[2023-02-21] MEDS: olanzapine 10mg tablet PO SCH (07:43)
[2023-02-21] MEDS: lisinopril 20mg tablet PO SCH (07:43)
[2023-02-21] MEDS: aspirin 81mg tab.chew PO SCH (07:43)
[2023-02-21] MEDS: amLODIPine 5mg tablet PO SCH (07:44)
[2023-02-21] MEDS: atorvastatin 20mg tablet PO SCH (07:44)
--- NOTE | 2023-02-21 08:24 | NUR ---
Patient eating breakfast.
--- NOTE | 2023-02-21 12:10 | NUR ---
Patient up to the restroom and then back to bed. Lunch is here.
--- NOTE | 2023-02-21 15:15 | NUR ---
Patient fully dressed in coat and a beanie. Patient appears somewhat paranoid.
--- NOTE | 2023-02-21 18:30 | NUR ---
Assumed patient care. She is sleeping in no distress.
--- NOTE | 2023-02-21 19:39 | NUR ---
Patient is resting quietly. Interview 1:1 at bedside. Patient is oriented to Person, place, and year. She speaks quietly. Patient denies S/I, H/I, or any hallucinations.
--- NOTE | 2023-02-21 20:10 | NUR ---
Patient is sleeping quietly, low fowlers in bed. No distress.
[2023-02-21] MEDS: diphenhydrAMINE 25mg capsule PO SCH (20:21)
[2023-02-21] MEDS: OLANZapine 2.5MG tablet PO SCH (20:21)
--- NOTE | 2023-02-21 21:10 | NUR ---
Patient is medication compliant. She is cooperative and in bed.
--- NOTE | 2023-02-21 22:31 | NUR ---
Patient is up to void. Patient is cooperative. She returns to bed.
--- NOTE | 2023-02-22 01:18 | NUR ---
Patient is sleeping quietly, no distress.
--- NOTE | 2023-02-22 03:03 | NUR ---
Patient was up to bathroom to void. Upon returning to bed this patient was placed in green scrubs. The patient reluctantly complies with the required clothing change.
--- NOTE | 2023-02-22 07:16 | NUR ---
Patient in supine position, attempting to sleep with a neighbor that constantly talks. She denies needs.
[2023-02-22] MEDS: LORazepam 1 MG tablet PO SCH ×2 (08:46→20:26)
[2023-02-22] MEDS: aspirin 81mg tab.chew PO SCH (08:46)
[2023-02-22] MEDS: atorvastatin 20mg tablet PO SCH (08:46)
[2023-02-22] MEDS: amLODIPine 5mg tablet PO SCH (08:47)
[2023-02-22] MEDS: olanzapine 10mg tablet PO SCH (08:48)
[2023-02-22] MEDS: lisinopril 20mg tablet PO SCH (08:48)
--- NOTE | 2023-02-22 09:19 | NUR ---
Patient has eaten her breakfast and lay back down for a nap.
--- NOTE | 2023-02-22 11:12 | NUR ---
Patient up to the restroom and then back to bed.
--- NOTE | 2023-02-22 13:31 | NUR ---
Patient in supine position, appears to be sleeping. RR even and unlabored.
--- NOTE | 2023-02-22 17:34 | NUR ---
Patient sitting on her bed waiting for her dinner tray.
--- NOTE | 2023-02-22 18:35 | NUR ---
Recieved pt. shanthi Sun RN, pt is resting in bed, RR even and unlabored and in no apparent distress.
[2023-02-22] MEDS: diphenhydrAMINE 25mg capsule PO SCH (20:26)
[2023-02-22] MEDS: OLANZapine 2.5MG tablet PO SCH (20:26)
--- NOTE | 2023-02-22 20:43 | NUR ---
Pt. sleeping in bed 21, supine position w RR even and unlabored. Pt. woke easily to take her HS medications without issue. Medication education given and questions answered.
--- NOTE | 2023-02-22 23:19 | NUR ---
Pt. resting quietly in supine position, RR even and unlabored. Pt. gets confused at times but very redirectable.
--- NOTE | 2023-02-23 01:58 | NUR ---
Pt resting with eyes closed, RR even and unlabored. No distress observed.
--- NOTE | 2023-02-23 04:08 | NUR ---
Pt. sleeping in bed 21. RR even and unlabored, pt. in NAD.
--- NOTE | 2023-02-23 05:31 | NUR ---
Pt slept mostly throught the night. VVS. Resting quietly in supine posdition, respirations even and unlabored, in NAD.
--- NOTE | 2023-02-23 07:02 | NUR ---
Received Pt in bed sleeping w/o distress at this time.
--- NOTE | 2023-02-23 10:07 | NUR ---
Pt ate breakfast well and spoke clearly with this RN. "I hope my son comes and picks me up." Pt took AM meds w/o issue and went back to laying in bed.
[2023-02-23] MEDS: olanzapine 10mg tablet PO SCH (10:15)
[2023-02-23] MEDS: lisinopril 20mg tablet PO SCH (10:16)
[2023-02-23] MEDS: aspirin 81mg tab.chew PO SCH (10:16)
[2023-02-23] MEDS: amLODIPine 5mg tablet PO SCH (10:16)
[2023-02-23] MEDS: atorvastatin 20mg tablet PO SCH (10:16)
[2023-02-23] MEDS: LORazepam 1 MG tablet PO SCH ×2 (10:17→21:34)
--- NOTE | 2023-02-23 12:48 | NUR ---
Pt ate lunch well. Pt calm and cooperative and used bathroom. Pt reports being tired, yet feeling much better. Pt returned to bed.
--- NOTE | 2023-02-23 15:12 | NUR ---
Pt in bed sleeping at this time and in no distress.
--- NOTE | 2023-02-23 17:41 | NUR ---
Pt in bed sleeping at this time and in no distress.
--- NOTE | 2023-02-23 18:37 | NUR ---
Pt was sleeping at change of shift, pt woke for dinner and is sitting quietly eating dinner.
--- NOTE | 2023-02-23 19:07 | NUR ---
Pt states she is hopeful her son will come get her but he tell her he doesnt want to come to the hospital because his coworkers arent vaccinated and hes very busy at work. Pt is pleasant and cooperative, states she is doing better and hopes her son will see that so she can go home.
--- NOTE | 2023-02-23 19:15 | NUR ---
Pt provided with earplugs
--- NOTE | 2023-02-23 20:07 | NUR ---
Pt is sleep rr 16
[2023-02-23] MEDS: diphenhydrAMINE 25mg capsule PO SCH (21:34)
[2023-02-23] MEDS: OLANZapine 2.5MG tablet PO SCH (21:34)
--- NOTE | 2023-02-23 22:06 | NUR ---
Pt woke up and took HS meds.
--- NOTE | 2023-02-23 23:47 | NUR ---
Pt is laying on her back rr even and unlabored.
--- NOTE | 2023-02-24 02:56 | NUR ---
pt is laying on his left side asleep, rr 18 no s/s distress. Addendum: 02/24/23 at 0258 by RISHI disregard note entered on wrong pt
--- NOTE | 2023-02-24 02:59 | NUR ---
Pt is laying on her back, asleep. RR even and unlabored, no s/s distress
--- NOTE | 2023-02-24 06:49 | NUR ---
Patient sleeping supine. No distress observed. Contnue to monitor.
[2023-02-24] MEDS: lisinopril 20mg tablet PO SCH (08:00)
[2023-02-24] MEDS: amLODIPine 5mg tablet PO SCH (08:00)
[2023-02-24] MEDS: LORazepam 1 MG tablet PO SCH ×2 (08:17→20:57)
[2023-02-24] MEDS: olanzapine 10mg tablet PO SCH (08:19)
[2023-02-24] MEDS: aspirin 81mg tab.chew PO SCH (08:19)
[2023-02-24] MEDS: atorvastatin 20mg tablet PO SCH (08:19)
--- NOTE | 2023-02-24 08:22 | NUR ---
Patient sitting up and eating breakfast. No distress observed. Continue to monitor.
--- NOTE | 2023-02-24 10:16 | NUR ---
Patient sleeping supine. No distress observed. Continue to monitor.
--- NOTE | 2023-02-24 12:20 | NUR ---
Patient eating lunch. No distress observed. Continue to monitor.
--- NOTE | 2023-02-24 14:11 | NUR ---
Patient sleeping supine. No distress observed. continue to monitor.
--- NOTE | 2023-02-24 16:20 | NUR ---
RN gave patient a snack of cheese and crackers. Patient eating. No distress observed. Continue to monitor.
--- NOTE | 2023-02-24 18:48 | NUR ---
Resting in bed with covers pulled over face. No distress noted. Will continue to monitor.
[2023-02-24] MEDS: diphenhydrAMINE 25mg capsule PO SCH (20:57)
[2023-02-24] MEDS: OLANZapine 2.5MG tablet PO SCH (20:58)
--- NOTE | 2023-02-24 21:30 | NUR ---
Patient sleeping in bed with eyes closed. Denies needing anything. Will continue to monitor.
--- NOTE | 2023-02-24 23:03 | NUR ---
Patient resting with eyes closed. Appears to be sleeping. No s/sx of distress noted. Will continue to monitor.
--- NOTE | 2023-02-25 01:00 | NUR ---
Patient resting with eyes closed. Appears to be sleeping. Will continue to monitor.
--- NOTE | 2023-02-25 03:14 | NUR ---
Sleeping comfortably. No s/sx of distress noted. Will continue to monitor.
--- NOTE | 2023-02-25 05:28 | NUR ---
Has slept majority of shift. Continues to sleep comfortably in bed with eyes closed. Will continue to monitor.
--- NOTE | 2023-02-25 06:15 | NUR ---
Pt received resting in bed with eyes closed on her right side, noted rise and fall of chest.
--- NOTE | 2023-02-25 07:48 | NUR ---
Pt awoke and is utilizing the restroom. No acute distess noted.
--- NOTE | 2023-02-25 08:42 | NUR ---
Pt eating breakfast, no distress noted.
[2023-02-25] MEDS: aspirin 81mg tab.chew PO SCH (08:49)
[2023-02-25] MEDS: LORazepam 1 MG tablet PO SCH ×2 (08:50→20:50)
[2023-02-25] MEDS: atorvastatin 20mg tablet PO SCH (08:50)
[2023-02-25] MEDS: olanzapine 10mg tablet PO SCH (08:50)
[2023-02-25] MEDS: amLODIPine 5mg tablet PO SCH (08:50)
[2023-02-25] MEDS: lisinopril 20mg tablet PO SCH (08:50)
--- NOTE | 2023-02-25 09:27 | NUR ---
Morning medications administered with no issues. Pt resting on her backside with eyes closed with noted rise and fall of chest.
--- NOTE | 2023-02-25 10:56 | NUR ---
Pt resting with eyes closed, noted rise and fall of chest.
--- NOTE | 2023-02-25 12:45 | NUR ---
Pt awake and eating lunch at this time. No acute distress noted.
--- NOTE | 2023-02-25 14:47 | NUR ---
Pt resting on her backside with noted rise and fall of chest. No distress noted.
--- NOTE | 2023-02-25 16:18 | NUR ---
Pt resting with eyes closed on her backside, noted rise and fall of chest.
--- NOTE | 2023-02-25 17:17 | NUR ---
Pt awake eating dinner at her bedside.
--- NOTE | 2023-02-25 18:30 | NUR ---
Upon turn of shift noted patient sleeping in bed. No s/sx of distress noted. Will continue to monitor.
[2023-02-25] MEDS: OLANZapine 2.5MG tablet PO SCH (20:50)
[2023-02-25] MEDS: diphenhydrAMINE 25mg capsule PO SCH (20:50)
--- NOTE | 2023-02-25 21:47 | NUR ---
Patient is sleeping with eyes closed. HS med compliant. Eager to fall asleep. Requesting to leave. Will continue to monitor.
--- NOTE | 2023-02-25 23:08 | NUR ---
Patient continues to sleep comfortably. RR even/nonlabored. No s/sx of distress noted. No needs noted. Will continue to monitor.
--- NOTE | 2023-02-26 02:02 | NUR ---
Patient sleeping comfortably at this time. Will continue to monitor.
--- NOTE | 2023-02-26 05:33 | NUR ---
Patient sleeping, got up to BR. Back to bed. Will continue to monitor.
--- NOTE | 2023-02-26 06:30 | NUR ---
Pt asleep on her backside, noted rise and fall of her chest. No acute distress.
[2023-02-26] MEDS: amLODIPine 5mg tablet PO SCH (08:00)
[2023-02-26] MEDS: lisinopril 20mg tablet PO SCH (08:00)
--- NOTE | 2023-02-26 08:24 | NUR ---
Pt up utilizing the restroom.
[2023-02-26] MEDS: olanzapine 10mg tablet PO SCH (09:01)
[2023-02-26] MEDS: LORazepam 1 MG tablet PO SCH ×2 (09:01→20:00)
[2023-02-26] MEDS: aspirin 81mg tab.chew PO SCH (09:01)
[2023-02-26] MEDS: atorvastatin 20mg tablet PO SCH (09:02)
--- NOTE | 2023-02-26 09:03 | NUR ---
Pt ate breakfast and is now sitting up in her bed. No acute distress noted.
--- NOTE | 2023-02-26 11:00 | NUR ---
Pt sitting up in bed with eyes open, no acute distress noted.
--- NOTE | 2023-02-26 12:23 | NUR ---
Pt ate lunch. Nurse asked how it was, she stated "good chocolate ice cream" with a smile on her face.
--- NOTE | 2023-02-26 14:20 | NUR ---
Pt sleeping in bed, noted rise and fall of chest.
--- NOTE | 2023-02-26 14:49 | NUR ---
Pt moved to bed 24. Pt awake and calm, relaxing in bed.
--- NOTE | 2023-02-26 15:52 | NUR ---
Pt awake, utilzing the restroom. No acute distress noted.
--- NOTE | 2023-02-26 17:12 | NUR ---
VS obtained. Pt eating dinner at bedside. No acute distress noted.
--- NOTE | 2023-02-26 19:15 | NUR ---
Pt repositioning self in bed. No acute distress noted.
--- NOTE | 2023-02-26 20:18 | NUR ---
Night time 1999 ativan held due to pt sleeping, noted rise and fall of chest.
[2023-02-26] MEDS: diphenhydrAMINE 25mg capsule PO SCH ×2 (21:00→21:11)
[2023-02-26] MEDS: OLANZapine 2.5MG tablet PO SCH ×2 (21:00→21:11)
--- NOTE | 2023-02-26 21:03 | NUR ---
Client sleeping on her backside with noted rise and fall of chest. 2100 ann marie and mickey held.
--- NOTE | 2023-02-26 21:15 | NUR ---
Pt awoke and utilizing the restroom. 2100 medications administered at this time due to patient being awake. Pt thanked nurse for giving her the medications.
--- NOTE | 2023-02-26 23:15 | NUR ---
Pt sleeping on her backside with noted rise and fall of chest. No acute distress noted.
--- NOTE | 2023-02-27 00:25 | NUR ---
Pt approached desk and asked what time it was and then went to restroom. Pt was smiling and pleasant.
--- NOTE | 2023-02-27 01:27 | NUR ---
Pt asleep on backside with noted rise and fall of chest. No acute distress noted.
--- NOTE | 2023-02-27 03:23 | NUR ---
Pt asleep on backside, noted rise and fall of chest. No distress noted.
--- NOTE | 2023-02-27 05:12 | NUR ---
Pt asleep on her backside, noted rise and fall of chest. No acute distress.
--- NOTE | 2023-02-27 05:32 | NUR ---
Pt up utilizing the restroom.
--- NOTE | 2023-02-27 06:14 | NUR ---
Report given to DESIRAE Crawford. Pt is sleeping on her backside with noted rise and fall of chest.
--- NOTE | 2023-02-27 06:30 | NUR ---
Pt is lying in bed, appears to be sleeping.
[2023-02-27] MEDS: LORazepam 1 MG tablet PO SCH ×2 (08:22→20:18)
[2023-02-27] MEDS: aspirin 81mg tab.chew PO SCH (08:22)
[2023-02-27] MEDS: olanzapine 10mg tablet PO SCH (08:22)
[2023-02-27] MEDS: atorvastatin 20mg tablet PO SCH (08:22)
[2023-02-27] MEDS: lisinopril 20mg tablet PO SCH (08:22)
[2023-02-27] MEDS: amLODIPine 5mg tablet PO SCH (08:23)
--- NOTE | 2023-02-27 08:30 | NUR ---
Pt is awake and eating her breakfast.
--- NOTE | 2023-02-27 10:16 | NUR ---
Noted order from 02/24/23 for social service consult. Do not see any 7th grade social studies teacher notes or notes regarding notification. Called and left a message for social worker delinquency prevention. Sent a page as well.
--- NOTE | 2023-02-27 11:01 | NUR ---
Received a call from Mayela from social services assistant. She will call pt's son.
--- NOTE | 2023-02-27 12:36 | NUR ---
Pt is awake. Pt is eating lunch.
--- NOTE | 2023-02-27 14:36 | NUR ---
Pt is lying quietly in her bed on her back.
--- NOTE | 2023-02-27 16:36 | NUR ---
Pt is lying quietly in her bed.
--- NOTE | 2023-02-27 18:40 | NUR ---
Patient ate half of her dinner and returned to sleep on her left side. In view from nurses station.
--- NOTE | 2023-02-27 19:39 | NUR ---
Patient is sleeping quietly with her blanket over her face. No distress noted.
[2023-02-27] MEDS: OLANZapine 2.5MG tablet PO SCH (20:18)
[2023-02-27] MEDS: diphenhydrAMINE 25mg capsule PO SCH (20:18)
--- NOTE | 2023-02-27 20:31 | NUR ---
Patient awoke for her night medications. She is mostly linear. Patient is polite. She complied with medications. Patient then returned to sleep.
--- NOTE | 2023-02-27 21:55 | NUR ---
The patient is sleeping quietly, no distress noted.
--- NOTE | 2023-02-27 23:32 | NUR ---
Patient is sleeping in a supine position. No distress noted.
--- NOTE | 2023-02-28 03:23 | NUR ---
Patient is sleeping in a low fowlers position. No distress.
--- NOTE | 2023-02-28 04:52 | NUR ---
No distress, patient is sleeping quietly.
--- NOTE | 2023-02-28 06:30 | NUR ---
Received pt. sleeping in bed at the beginning of the shift, respirations are even and unlabored.
--- NOTE | 2023-02-28 08:35 | NUR ---
Pt. continues to sleep at this time, no s/s of distress noted.
[2023-02-28] MEDS: amLODIPine 5mg tablet PO SCH (08:58)
[2023-02-28] MEDS: atorvastatin 20mg tablet PO SCH (08:58)
[2023-02-28] MEDS: olanzapine 10mg tablet PO SCH (08:58)
[2023-02-28] MEDS: LORazepam 1 MG tablet PO SCH ×2 (08:58→20:10)
[2023-02-28] MEDS: aspirin 81mg tab.chew PO SCH (08:58)
[2023-02-28] MEDS: lisinopril 20mg tablet PO SCH (08:59)
--- NOTE | 2023-02-28 10:10 | NUR ---
1:1 was completed at bedside with patient, she presents as somewhat confused and makes disorganized statements while appearing to be searching for the right words. Pt. states, "I took my medicine last night, I woke up with this hat on. I cut my hair." She continues to deny all mental health s/s and is pleasant and cooperative.
--- NOTE | 2023-02-28 12:30 | NUR ---
Pt. is sitting up eating lunch at this time.
--- NOTE | 2023-02-28 14:40 | NUR ---
Pt. continues to sleep in bed at this time, rr are even and unlabored.
--- NOTE | 2023-02-28 16:28 | NUR ---
Pt. continues to sleep at this time, laying on her left side with HOB elevated.
--- NOTE | 2023-02-28 17:58 | NUR ---
Pt. continues to sleep at this time, rise and fall of chest noted.
--- NOTE | 2023-02-28 18:30 | NUR ---
Assumed patient care. She has finished her dinner and is now sleeping in bed.
--- NOTE | 2023-02-28 19:21 | NUR ---
Patient is sleeping, no distress.
[2023-02-28] MEDS: diphenhydrAMINE 25mg capsule PO SCH (20:10)
[2023-02-28] MEDS: OLANZapine 2.5MG tablet PO SCH (20:10)
--- NOTE | 2023-02-28 21:00 | NUR ---
Patient awoke, complied with all medications. No distress noted. The patient is oriented to person and place. Minor dementia present. Patient is able to self toilet with no problem.
--- NOTE | 2023-02-28 22:23 | NUR ---
Patient is sleeping quietly in a low fowlers position. No distress.
--- NOTE | 2023-03-01 00:05 | NUR ---
Patient awoke, requested and was given ice water. Patient then returned to sleep.
--- NOTE | 2023-03-01 01:14 | NUR ---
Patient sleeping quietly. No distress.
--- NOTE | 2023-03-01 06:06 | NUR ---
Patient sleeping, no distress noted.
--- NOTE | 2023-03-01 07:02 | NUR ---
Assumed care of patient that appears to be sleeping in supine position. No s/sx of distress.
[2023-03-01] MEDS: amLODIPine 5mg tablet PO SCH (08:00)
[2023-03-01] MEDS: lisinopril 20mg tablet PO SCH (08:00)
--- NOTE | 2023-03-01 08:32 | NUR ---
Patient has finished her breakfast tray. She also received a call from her son who says he will pick her up today at 1700.
[2023-03-01] MEDS: atorvastatin 20mg tablet PO SCH (08:54)
[2023-03-01] MEDS: LORazepam 1 MG tablet PO SCH (08:56)
[2023-03-01] MEDS: olanzapine 10mg tablet PO SCH (08:56)
[2023-03-01] MEDS: aspirin 81mg tab.chew PO SCH (08:56)
--- NOTE | 2023-03-01 11:40 | NUR ---
Patient sleeping in supine position. RR even and unlabored. No s/sx of distress.
--- NOTE | 2023-03-01 13:00 | NUR ---
Patient sleeping quietly. No distress.
[2023-03-01 17:45] VITALS: BP 99/63
--- NOTE | 2023-03-01 17:56 | NUR ---
ALL PT BELONGINGS GIVEN BACK, TECH HAD REGISTRATION CHECK SAFE FOR ANY VALUABLES, ALL THINGS IN LOCKER (TWO BAGS) GIVEN BACK TO PT TO CHANGE BACK INTO. NO VALUABLES IN THE SAFE FOR PT. TECH CHECKED BAGS WITH PT AND PT SON TO ENSURE PT HAD ALL BELONGINGS THEY CAME IN WITH.
[2023-03-01] MEDS ORDERED: LORA-269 PO (19:53)
--- NOTE | 2023-03-02 09:30 | NUR ---
PATIENT'S SON, NORMA, CAME TO [facility] FOR [facility]IVAN (HARD COPY ON RX PAPER) FOR THE PATIENT (SAMANTA). NORAM IS UPSET THAT HE HAS TO TAKE THE PRESCRIPTION TO THE PHARMACY TO GET IT FILLED AND WANTS TO KNOW IF HE CAN GET THE PRESCRIPTION FILLED FROM [facility]. NORMA WAS TOLD THAT THE HOSPITAL IS NOT AUTHORIZED TO FILL PRESCRIPTIONS AND HE SHOULD GO TO A PHARMACY THAT IS OPEN TODAY TO GET THE MEDICATION. NORMA CONTINUES TO ARGUE WITH CHARGE NURSE ABOUT TAKING THE PRESCRIPTION TO THE PHARMACY AND HAVING TO "PAY FOR IT". THEN PATIENT'S SON, NORMA, IS COMPLAINING TO THIS CHARGE NURSE THAT HE WAS UPSET THAT HE HAD TO RETURN TODAY TO GET THE PRESCRIPTION THAT SHOULD HAVE BEEN GIVEN TO PATIENT WHEN SHE WAS DISCHARGED YESTERDAY. CHARGE NURSE APOLOGIZED FOR THE INCONVENIENCE, BUT NORMA CONTINUED TO COMPLAIN ABOUT NOT RECEIVING THE PRESCRIPTION AND THAT HE THINKS HIS MOTHER WAS NOT BEING CARED FOR PROPERLY. NORMA STATES THAT HE IS JUST GOING TO "BRING HIS MOTHER BACK HERE AND THEN WE CAN GIVEN HER THE MEDICATION". NORMA DEPARTED FROM ER WITH PRESCRIPTION, WITH SECURITY ON STAND-BY.
== END 2023-03-01 18:08 | disposition home or self-care (01) ==
LOC: ER 14:57
DX: F68.8 Other specified disorders of adult personality and behavior (principal); Z20.822 Contact with and (suspected) exposure to COVID-19; R47.01 Aphasia; Z88.8 Allergy status to other drugs, medicaments and biological substances; Z91.09 Other allergy status, other than to drugs and biological substances; Z91.018 Allergy to other foods
CPT/HCPCS: 36415; 80053; 81001; 85025; 87811; 96372; 99285; J1630; J2060; J3490

== ENCOUNTER 2025-03-21 21:16 | Emergency (ER) | payer MEDICARE, MEDICAID ==
[~2025-03-21] VITALS: Ht 160 cm; Wt 47.6 kg
[~2025-03-21 21:16] MED LIST changes: +AMLO-888 PO; -AMLO10TA48 PO; -ATOR40TA7 PO; +ATOR80TA PO; +DIPH25CA83 PO
[2025-03-21 21:24] VITALS: TEMP 97.6
[2025-03-21 22:02] LABS: BASOPHILS # (AUTO) 0.1 X10'3 (0-0.2); BASOPHILS % (AUTO) 0.4 % (0-1); EOSINOPHILS % (AUTO) 0 % (0-6); HEMATOCRIT 42.9 % (35.0-45.0); HEMOGLOBIN 13.7 g/dl (12.0-16.0); LYMPHOCYTES # (AUTO) 1.7 X10'3 (1.1-4.8); LYMPHOCYTES % (AUTO) 11.7 % (21-51); MEAN CORPUSCULAR HEMOGLOBIN 25.3 PG (27.0-31.0); MEAN CORPUSCULAR VOLUME 78.9 FL (78-98); MEAN PLATELET VOLUME 8.1 FL (7.4-10.4); MONOCYTES # (AUTO) 0.9 X10'3 (0-0.9); NEUTROPHILS # (AUTO) 11.7 X10'3 (1.8-7.7); NEUTROPHILS % (AUTO) 81.9 % (42-75); PLATELET COUNT 385 X10'3 (140-440); RED BLOOD COUNT 5.44 X10'6 (4.20-5.60); RED CELL DISTRIBUTION WIDTH 18.3 % (11.5-14.5); WHITE BLOOD COUNT 14.3 X10'3 (4.5-11.0)
[2025-03-21 22:17] LABS: ALANINE AMINOTRANSFERASE 20 U/L (12-78); ALBUMIN 4.3 G/DL (3.4-5.0); ALBUMIN/GLOBULIN RATIO 1.1 (1.1-1.5); ALKALINE PHOSPHATASE 97 IU/L (46-116); ANION GAP 15 (8-16); ASPARTATE AMINO TRANSFERASE 20 U/L (10-37); BILIRUBIN,TOTAL 1.1 MG/DL (0.1-1.0); BLOOD UREA NITROGEN 24 MG/DL (7-18); BUN/CREATININE RATIO 29.6 (10.0-20.0); CALCIUM 8.9 MG/DL (8.5-10.1); CHLORIDE 104 MMOL/L (99-107); CREATININE 0.81 MG/DL (0.40-0.90); GLUCOSE 101 MG/DL (70-104); POTASSIUM 4.2 MMOL/L (3.5-5.1); SODIUM 143 MMOL/L (135-145); TOTAL CARBON DIOXIDE 23.6 MMOL/L (24-32); TOTAL PROTEIN 8.3 G/DL (6.4-8.2); eCRCL 44 ML/MIN; eGFR 69 ML/MIN
[2025-03-21 22:20] LABS: ETHANOL < 10 MG/DL (<10)
--- NOTE | 2025-03-21 22:42 | Physician Documentation ---
History of Present Illness ~ Chief Complaint: Confused Stated Complaint: MH Time Seen by MD: 22:16 Primary Medical Doctor: MYRNA Rizvi Mode of Arrival: POV HPI Patient presents to the emergency room with psychiatric disturbance. Patient was history of mental health issues and has been seen here previously for similar circumstance. Patient's family states she typically when she was suffering from a urinary tract infection, medication noncompliance or spells related to distant history of stroke. Patient it was very tangential and not helpful with history. Medication Reconciliation Allergies: Coded Allergies: gluten (Verified Allergy, Severe, Abdominal Pain, 01/28/23) Ciliac Disease orange (Verified Allergy, Unknown, 01/28/23) walnut (Verified Allergy, Unknown, 01/28/23) Scheduled Amlodipine Besylate (Norvasc), 1 TAB PO DAILY, (Reported) Aspirin (Aspirin), 1 TAB PO DAILY, (Reported) Atorvastatin Calcium (Lipitor), 1 TAB PO DAILY, (Reported) Diphenhydramine Hcl (Benadryl), 2 CAP PO HS, (Reported) Lisinopril (Lisinopril), 1 TAB PO DAILY, (Reported) Lorazepam (Ativan), 1 TAB PO Q12H, (Reported) Olanzapine (Zyprexa), 1 TAB PO HS, (Reported) Olanzapine (Zyprexa), 1 TAB PO DAILY, (Reported) Scheduled PRN Lorazepam (Ativan), 1 TAB PO Q12H PRN for for anxiety/agitation Past Medical History Past Medical History: CVA/TIA/Stroke, Dementia, *PSYCH*, Psychosis Past Surgical History: noncontributory Other Past Surgical History: Unknown Patient History: Patient reports no known family medical history. Other Past Family History: Unknown Lives with: Family Lives In: Home Occupation: retired Review of Systems ROS Review of systems limited secondary to patient's clinical condition Physical Exam Vital Signs: Temperature: 97.6, Source: Oral, Heart Rate: 111, Respiratory R ate: 15, BP: 146/83, Pulse Oximetry: 98, Weight: 47.600 Oxygen Flow Rate: 0 Physical Exam General: Patient is awake, alert, tangential, talkative Head: Normocephalic and atraumatic. Eyes: Conjunctival normal. EOMI. PERRL. ENT: Mucous membranes moist. Neck: Supple, trachea is midline. Chest: Clear to auscultation bilaterally without rales, rhonchi, or wheezes. There is no accessory muscle use or retractions. Cardiac: Tachycardic and regular without murmurs, gallops, or rubs. Abd: Soft, nondistended, nontender, with normoactive bowel sounds. No guarding, rebound, or rigidity. Progress Results/Orders Results/Orders Orders - MALCOLM BARRERA MD Med Rec (03/21/25 22:42) 1799.11 (03/21/25 22:42) Close Observation Level (03/21/25 22:42) Covid19 Binax Poc Result Entry (03/21/25 22:42) Substance Use Navigator (03/21/25 22:42) Completed Orders - MALCOLM BARRERA MD Cbc/Diff (03/21/25 21:40) CMP (03/21/25 21:40) Drug Screen, Urine (03/21/25 21:40) Ethanol (03/21/25 21:40) Procalcitonin (03/21/25 21:40) Olanzapine Im (Zyprexa I.M. Im On (03/21/25 22:40) Diazepam Inj (Valium Inj) (03/21/25 22:40) Regular Diet (03/22/25 Breakfast) TSH (03/21/25 21:53) Diazepam Inj (Valium Inj) (03/22/25 02:40) Ua With Microscopic (03/21/25 07:05) Vital Signs 03/21/25 03/21/25 03/21/25 03/21/25 21:24 21:48 21:50 23:55 Temp 97.6 Pulse 108 111 99 Resp 16 15 14 B/P (MAP) 150/73 146/83 (104) 106/64 (78) Pulse Ox 95 98 93 O2 Flow Rate 0 0 03/22/25 03/22/25 03/22/25 03/22/25 01:53 03:28 06:23 07:13 Pulse 98 98 80 Resp 19 17 16 16 B/P (MAP) 109/54 (72) 105/57 (73) 136/66 (89) Pulse Ox 96 97 96 O2 Flow Rate 0 03/22/25 13:05 B/P (MAP) Laboratory Tests Test 03/21/25 07:05 03/21/25 21:33 03/21/25 21:53 Urine Specimen Description Straight cath Urine Color Yellow Urine Clarity Clear Urine pH 6.0 Urine Specific [place] >=1.030 Urine Protein 30 H Urine Glucose (UA) Negative Urine Ketones >=80 Urine Occult Blood Negative Urine Nitrite Negative Urine Bilirubin Small Urine Urobilinogen 0.2 Urine Leukocyte Esterase Negative Urine RBC None seen Urine WBC 0-4 Urine Squamous Epithelial Cells Few Urine Bacteria None seen Urine Cellular Casts 0-4 Urine Hyaline Casts 10-30 Urine White Blood Cell Casts 0-3 Urine Mucus Moderate Volume Urine Centrifuged 10 ml Urine Comment Urine Opiates Screen Negative Urine Methadone Screen Negative Urine Fentanyl Screen Negative Urine Barbiturates Screen Negative Urine Phencyclidine Screen Negative Urine Amphetamines Screen Negative Urine Benzodiazepines Screen Positive Urine Cocaine Screen Negative Urine Cannabinoids Screen Negative Drug Screen Comment Glucometer 102 White Blood Count 14.3 H Red Blood Count 5.44 Hemoglobin 13.7 Hematocrit 42.9 Mean Corpuscular Volume 78.9 Mean Corpuscular Hemoglobin 25.3 L Mean Corpuscular Hemoglobin Concent 32.0 L Red Cell Distribution Width 18.3 H Platelet Count 385 Mean Platelet Volume 8.1 Neutrophils (%) (Auto) 81.9 H Lymphocytes (%) (Auto) 11.7 L Monocytes (%) (Auto) 6.0 Eosinophils (%) (Auto) 0 Basophils (%) (Auto) 0.4 Neutrophils # (Auto) 11.7 H Lymphocytes # (Auto) 1.7 Monocytes # (Auto) 0.9 Eosinophils # (Auto) 0.0 Basophils # (Auto) 0.1 CBC Comment Sodium Level 143 Potassium Level 4.2 Chloride Level 104 Carbon Dioxide Level 23.6 L Anion Gap 15 Blood Urea Nitrogen 24 H Creatinine 0.81 Estimated GFR/1.73 m2 69 BUN/Creatinine Ratio 29.6 H Glucose Level 101 Calcium Level 8.9 Total Bilirubin 1.1 H Aspartate Amino Transf (AST/SGOT) 20 Alanine Aminotransferase (ALT/SGPT) 20 Alkaline Phosphatase 97 Total Protein 8.3 H Albumin 4.3 Globulin 4.0 Albumin/Globulin Ratio 1.1 Procalcitonin < 0.05 Thyroid Stimulating Hormone (TSH) 2.25 Chemistry Comments Ethyl Alcohol Level < 10 Medical Decision Making Findings Patient presented to the emergency room for evaluation of psychiatric disturbance. Differentials include but are not limited to metabolic disturban ce, psychiatric break, medication noncompliance, urinary tract infection therefore labs ordered. Labs reassuring for no major pathologic derangements and she was medically cleared for mental health evaluation. Urinalysis negative. Patient was history of psychiatric issues. Patient was disruptive enough in the emergency room screaming in the middle of the night therefore sedation was required. Departure Disposition: HOME / SELF CARE / HOMELESS Impression: Primary Impression: Alzheimer's disease Condition: Stable Additional Instructions: Please follow-up with a memory care unit as per Behavioral Health. Referrals: NO PRIMARY CARE PROVIDER (PCP) Education Educated: Family Educated regarding: diagnosis, treatment Signature Scribe Signature: . Attestation: The note accurately reflects work and decisions made by me.Malcolm Barrera MD 03/24/25 01:43 . Addendum Pt signed out to me as part of their psychiatric ED evaluation. Pt resting well. Vital signs within expected ranges. Brief Physical Examination: Alert and appropriately oriented. No signs of respiratory distress. Able to ambulate and move all extremities. Medical evaluation does not indicate metabolic derangement. Awaiting final disposition. Easily arousable and interactive. Hemodynamically stable. The patient is currently awaiting Behavioral Health final evaluation and disposition. 1:11 p.m.: Behavioral Health has evaluated the patient and determined that she has dementia. Her son is going to pick her up and look for a memory care unit for her. Therefore, I will discharge her. MALCOLM BARRERA MD Mar 21, 2025 22:42 GHANSHYAM PIEDRA MD Mar 22, 2025 07:46
[2025-03-21 23:08] LABS: THYROID STIMULATING HORMONE 2.25 ulU/ml (0.34-4.50)
[2025-03-21] MEDS: diazepam inj 5 MG/ML inj. IM ONE (23:12)
[2025-03-21] MEDS: OLANZapine **IM** 10 mg inj. IM ONE (23:12)
[2025-03-22] MEDS: diazepam inj 5 MG/ML inj. IM ONE (02:48)
[2025-03-22 07:13] VITALS: BP 136/66; PULSE 80; RESP 16; O2SAT 96
[2025-03-22 07:17] LABS: BILIRUBIN,URINE SMALL (Neg); CLARITY,URINE CLEAR (Clear); COLOR,URINE YELLOW (Yellow); GLUCOSE, URINE NEGATIVE (Neg); KETONES,URINE >=80 mg/dl (Neg); LEUKOCYTE ESTERASE ,URINE NEGATIVE (Neg); OCCULT BLOOD,URINE NEGATIVE (Neg); PROTEIN,URINE 30 mg/dl (Neg); UROBILINOGEN,URINE 0.2 E.U/dL (0.2-1.0)
[2025-03-22 07:27] LABS: UA COLLECTION TYPE STRAIGHT CATH
[2025-03-22 07:28] LABS: NITRITES, URINE NEGATIVE (Neg)
[2025-03-22 07:30] LABS: BACTERIA,URINE NONE SEEN /HPF (Neg); RBC,URINE NONE SEEN /HPF (0-2); WBC,URINE 0-4 /HPF (0-4)
[2025-03-22 07:31] LABS: MUCUS STRANDS MODERATE /LPF (Neg); SQUAMOUS EPITHELIAL CELL,UR FEW /LPF (FEW); URINE AMPHETAMINE SCREEN NEGATIVE (Neg); URINE BARBITUATE SCREEN NEGATIVE (Neg); URINE BENZODIAZEPINES SCREEN POSITIVE (Neg); URINE CANNABINOID SCREEN NEGATIVE (Neg); URINE COCAINE SCREEN NEGATIVE (Neg); URINE METHADONE SCREEN NEGATIVE (Neg); URINE OPIATE SCREEN NEGATIVE (Neg); URINE PHENCYCLIDINE SCREEN NEGATIVE (Neg); WBC CASTS 0-3 /LPF (NEGATIVE)
[2025-03-22 07:32] LABS: CELLULAR CAST 0-4 /LPF (NEGATIVE)
[2025-03-22] MEDS: OLANZapine **IM** 10 mg inj. IM ONE (12:13)
== END 2025-03-22 17:12 | disposition home or self-care (01) ==
LOC: ER 21:17
DX: G30.9 Alzheimer's disease, unspecified (principal); F02.82 Dementia in other diseases classified elsewhere, unspecified severity, with psychotic disturbance; Z86.73 Personal history of transient ischemic attack (TIA), and cerebral infarction without residual deficits; Z88.8 Allergy status to other drugs, medicaments and biological substances; Z79.899 Other long term (current) drug therapy
CPT/HCPCS: 36415; 80053; 80305; 81001; 82948; 84145; 84443; 85025; 96372; 99285; C1758; G0480; J3360; J3490; 80320

== ENCOUNTER 2025-03-28 11:51 | Emergency (ER) | payer MEDICARE, MEDICAID ==
[~2025-03-28] VITALS: Ht 154.9 cm; Wt 51.4 kg
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
[2025-03-28] MEDS: haloperidol lactate 5mg/ml inj IM ONE (12:34)
[2025-03-28] MEDS: diazepam inj 5 MG/ML inj. IM ONE (12:34)
[2025-03-28] MEDS: diphenhydrAMINE 50 mg/ml inj IM ONE (12:34)
[2025-03-28] MEDS ORDERED: DIPH25CA83 PO (13:09)
[2025-03-28] MEDS ORDERED: DIAZ5TAB PO (13:09)
[2025-03-28 13:17] LABS: BASOPHILS % (AUTO) 0.4 % (0-1); EOSINOPHILS # (AUTO) 0.1 X10'3 (0-0.9); EOSINOPHILS % (AUTO) 0.9 % (0-6); HEMATOCRIT 36.7 % (35.0-45.0); HEMOGLOBIN 12.1 g/dl (12.0-16.0); LYMPHOCYTES # (AUTO) 1.8 X10'3 (1.1-4.8); LYMPHOCYTES % (AUTO) 25.1 % (21-51); MEAN CORPUSCULAR HEMOGLOBIN 25.8 PG (27.0-31.0); MEAN CORPUSCULAR VOLUME 78.4 FL (78-98); MEAN PLATELET VOLUME 8.1 FL (7.4-10.4); MONOCYTES # (AUTO) 0.6 X10'3 (0-0.9); MONOCYTES % (AUTO) 8.4 % (2-12); NEUTROPHILS # (AUTO) 4.7 X10'3 (1.8-7.7); NEUTROPHILS % (AUTO) 65.2 % (42-75); PLATELET COUNT 316 X10'3 (140-440); RED BLOOD COUNT 4.69 X10'6 (4.20-5.60); RED CELL DISTRIBUTION WIDTH 17.9 % (11.5-14.5); WHITE BLOOD COUNT 7.2 X10'3 (4.5-11.0)
[2025-03-28 13:42] LABS: ALBUMIN 3.4 G/DL (3.4-5.0); ANION GAP 7 (8-16); BLOOD UREA NITROGEN 16 MG/DL (7-18); BUN/CREATININE RATIO 19.5 (10.0-20.0); CALCIUM 8.7 MG/DL (8.5-10.1); CHLORIDE 106 MMOL/L (99-107); CREATININE 0.82 MG/DL (0.40-0.90); GLUCOSE 124 MG/DL (70-104); POTASSIUM 3.6 MMOL/L (3.5-5.1); SODIUM 142 MMOL/L (135-145); THYROID STIMULATING HORMONE 2.13 ulU/ml (0.34-4.50); TOTAL CARBON DIOXIDE 29.1 MMOL/L (24-32); eCRCL 43 ML/MIN; eGFR 68 ML/MIN
[2025-03-28 13:48] LABS: ETHANOL < 10 MG/DL (<10)
[2025-03-28 13:55] VITALS: TEMP 97.9
[2025-03-28 14:59] VITALS: BP 96/45; PULSE 78; RESP 16; O2SAT 97
== END 2025-03-28 15:31 | disposition home or self-care (01) ==
LOC: ER 11:53
DX: F01.B11 Vascular dementia, moderate, with agitation (principal); Z86.73 Personal history of transient ischemic attack (TIA), and cerebral infarction without residual deficits; Z88.8 Allergy status to other drugs, medicaments and biological substances
CPT/HCPCS: 36415; 80048; 84443; 85025; 96372; 99285; G0480; J1200; J1630; J3360; 80320